=== PATIENT | female | born 1995 | race Caucasian/White ===

== ENCOUNTER 2020-07-21 13:11 | Outpatient (REF) | payer MEDICAID, SELFPAY | END 2020-07-21 13:12 | disposition home or self-care (01) | LOC: HO.LAB 13:11 | PROVIDERS: Visit Provider Internal Medicine | DX: Z20.822 Contact with and (suspected) exposure to COVID-19 (principal) | CPT/HCPCS: 36415; C9803; U0003; U0005 ==

== ENCOUNTER 2020-12-24 14:18 | Outpatient (REF) | payer MEDICAID, SELFPAY ==
--- NOTE | ~2020-12-24 | US_ITS ---
EXAMINATION: US RETROPERITONEAL LIMITED (RENAL ONLY) CLINICAL INFORMATION: Back pain. Hematuria. COMPARISON: None. TECHNIQUE: Real-time imaging of the kidneys. FINDINGS: RIGHT KIDNEY: 12.0 x 5.8 x 4.9 cm (SAG x AP x TRV). The kidney is normal in size, contour, and echogenicity. Renal cortical thickness is normal. No renal calculi or focal parenchymal lesions. There is mild hydronephrosis with mild dilation of proximal and mid ureter. No obvious echogenic stones seen. LEFT KIDNEY: 12.9 x 5.5 x 4.8 cm (SAG x AP x TRV). The kidney is normal in size, contour, and echogenicity. Renal cortical thickness is normal. No calculi or focal parenchymal lesions. No hydronephrosis. BLADDER: Bilateral ureteral jets are demonstrated. US/US renal BI IMPRESSION: Mild hydronephrosis with dilated proximal and mid right ureter. No echogenic stones seen. Bilateral ureteral jets are seen well. Normal left kidney.
== END 2020-12-24 14:19 | disposition home or self-care (01) ==
LOC: HO.US 14:18
PROVIDERS: PCP Internal Medicine; Visit Provider Emergency Medicine
DX: R10.9 Unspecified abdominal pain (principal)
CPT/HCPCS: 76775

== ENCOUNTER 2021-02-20 10:12 | Outpatient (REF) | payer MEDICAID, SELFPAY | END 2021-02-20 10:13 | disposition home or self-care (01) | LOC: HO.LNP 10:12 | PROVIDERS: PCP Internal Medicine | DX: N39.0 Urinary tract infection, site not specified (principal); R31.9 Hematuria, unspecified; E05.90 Thyrotoxicosis, unspecified without thyrotoxic crisis or storm | CPT/HCPCS: 87086; 99202 ==

== ENCOUNTER 2021-04-14 09:37 | Outpatient (REF) | payer MEDICAID, SELFPAY ==
--- NOTE | ~2021-04-14 | US_ITS ---
EXAMINATION: US RETROPERITONEAL LIMITED (RENAL ONLY) CLINICAL INFORMATION: Hematuria, unspecified. COMPARISON: Renal ultrasound 12/24/2020. TECHNIQUE: Real-time imaging of the kidneys. FINDINGS: RIGHT KIDNEY: 12.3 x 5.4 x 5.1 cm (SAG x AP x TRV). There is again noted to be focal hydronephrosis involving the upper pole as well as the proximal to distal right ureter without definite calculus or mass identified. Question possible duplicated upper collecting system with obstruction of the superior moiety.. The ureteral dilatation has increased significantly since previous study. Renal cortical thickness is normal. No renal calculi or focal parenchymal lesions. LEFT KIDNEY: 12.0 x 5.3 x 5.5 cm (SAG x AP x TRV). The kidney is normal in size, contour, and echogenicity. Renal cortical thickness is normal. No calculi or focal parenchymal lesions. No hydronephrosis. US/US renal BI IMPRESSION: Increase in ureteral dilatation with the proximal and mid right ureter and more prominent right renal upper pole prominence with bilateral ureteral jets being identified. Question duplicated right upper collecting system with obstruction of upper pole moiety.
== END 2021-04-14 09:38 | disposition home or self-care (01) ==
LOC: HO.US 09:37
PROVIDERS: PCP Nurse Practitioner
DX: R31.9 Hematuria, unspecified (principal)
CPT/HCPCS: 76775

== ENCOUNTER → 2021-05-22 10:49 | Outpatient (BNVA) | payer MEDICAID, SELFPAY | PROVIDERS: PCP Nurse Practitioner | DX: R31.9 Hematuria, unspecified (principal) | CPT/HCPCS: 99212 ==

== ENCOUNTER 2021-06-11 10:23 | Outpatient (REF) | payer MEDICAID, SELFPAY ==
--- NOTE | ~2021-06-11 | CT_ITS ---
EXAMINATION: CT ABDOMEN AND PELVIS WITHOUT AND WITH CONTRAST CLINICAL INFORMATION: Gross hematuria COMPARISON: None. TECHNIQUE: Noncontrast CT of the abdomen and pelvis is performed followed by split bolus contrast-enhanced images using 85 mL Omnipaque 350 contrast.? Postcontrast imaging is performed during the combined nephrogram and excretion phase. Sagittal and coronal reformatted images were obtained on the technologist's workstation for both the precontrast and postcontrast phases. This CT examination was performed using dose optimization techniques as appropriate, variously including the following: *Automated exposure control *Adjustment of mA and/or kV according to patient size (this includes techniques or standardized protocols for targeted exams where dose is matched to indication/reason for exam; i.e. extremities or head) *Use of iterative reconstruction technique DLP: 1390 mGy-cm FINDINGS: LUNG BASES: The visualized lung bases are unremarkable. ABDOMINAL AND PELVIC WALL: Unremarkable. LIVER AND BILIARY TREE: Hypoattenuating hepatic parenchyma suggestive of hepatic steatosis. GALLBLADDER: Unremarkable PANCREAS: Unremarkable SPLEEN: Unremarkable ADRENAL GLANDS: Unremarkable. KIDNEYS AND URETERS: No nephroureterolithiasis. 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 The right kidney is remarkable for a duplicated renal collecting system. The superior pole demonstrates severe hydronephrosis with chronic renal cortical thinning with the ureter dilated to the level of the pelvis where the ureter appears to insert ectopically, favored to be the posterior aspect of the urethra, however closely approximates the anterior vaginal wall. The right lower pole renal collecting system demonstrates mild hydronephrosis with decompression of the ureter distal to the ureteropelvic junction with a standard insertion at the ureterovesicular junction. There is minimal contrast seen excreted into the right superior pole renal collecting system. UPPER GASTROINTESTINAL TRACT: The stomach and duodenum are unremarkable. VASCULAR: Unremarkable. LYMPH NODES: No lymphadenopathy. BLADDER: Unremarkable PELVIC VISCERA: Unremarkable LOWER GASTROINTESTINAL TRACT: The small and large bowel are unremarkable. Normal appendix. 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 The right kidney is remarkable for a duplicated renal collecting system. The superior pole demonstrates severe hydronephrosis with chronic renal cortical thinning with the ureter dilated to the level of the pelvis where the ureter appears to insert ectopically, favored to be the posterior aspect of the urethra, however closely approximates the anterior vaginal wall, and correlation with clinical symptoms is recommended. There is minimal contrast seen excreted into the right superior pole renal collecting system, which may be related to decreased function. The right lower pole renal collecting system demonstrates mild hydronephrosis with decompression of the ureter distal to the ureteropelvic junction which may reflect a degree of UPJ stenosis with a standard insertion at the ureterovesicular junction. Hepatic steatosis.
[2021-06-11] MEDS: iohexoL 350 MG/ML 100 ML INFUS..BTL IV (12:51)
== END 2021-06-11 10:24 | disposition home or self-care (01) ==
LOC: HO.CT 10:23
DX: N13.30 Unspecified hydronephrosis (principal)
CPT/HCPCS: 74178; Q9967

== ENCOUNTER → 2021-08-17 11:22 | Outpatient (BNVA) | payer MEDICAID, SELFPAY | PROVIDERS: PCP Nurse Practitioner ==

== ENCOUNTER 2021-09-21 11:39 | Day surgery (SDC) | payer MEDICAID, SELFPAY ==
[2021-09-15 12:09] VITALS: BMI 34.9
--- NOTE | 2021-09-18 12:57 | P.CONAN_ITS ---
Documented by User: Natalie Dykes NP 09/18/21 12:58 HPI - Anesthesia Eval Consult details Narrative: 26yo F for Bilateral Cystoscopy and retrogrades and possible right stent PMFSH Active Problems Active Problems: All Active Problems (Updated 09/15/21 @ 11:33 by Terri Rowell RN) Hematuria of unknown etiology (Acute) UTI (urinary tract infection) (Acute) Past Medical History Medical History (Updated 09/15/21 @ 11:33 by Terri Rowell RN) Anemia Anxiety and depression Asthma Chronic back pain Hematuria of unknown etiology Hyperthyroidism Migraines UTI (urinary tract infection) Surgical History Surgical History (Updated 09/15/21 @ 12:07 by Terri Rowell RN) History of kidney surgery Social History Social History Household Members Other:: Mother Are you a primary director of primary care to a significant other at home: No Do you presently have visiting nurse or other home services: No Alcohol intake: never Patient Tobacco Use Status: Never used Tobacco Are you DNR?: No Advance Directives: No Advance Directives Information Provided: Yes Advance Directives on File: No Recently lost weight without trying: No Eating poorly because of decreased appetite: No Nutrition Risks: No Nutritional Risk Patient : No FDLMP: last month Meds Allergies Allergy/AdvReac Type Severity Reaction Status Date / Time No Known Allergies Allergy Verified 08/17/21 11:23 Home Medications Medication Instructions Recorded Confirmed Last Taken Type acetaminophen 650 mg 650 mg PO Q8H PRN 02/20/21 09/15/21 Unknown History tablet,extended release (Mapap Arthritis Pain) albuterol sulfate 2.5 mg INHALATION Q6H PRN 02/20/21 09/15/21 Unknown History duloxetine 60 mg capsule,delayed 60 mg PO DAILY 02/20/21 09/15/21 Unknown History release ferrous sulfate 325 mg (65 mg 325 mg PO Q OTHER DAY 02/20/21 09/15/21 Unknown History iron) tablet (FeroSul) fluticasone propionate 110 2 puff PO BID 02/20/21 09/15/21 Unknown History mcg/actuation HFA aerosol inhaler (Flovent HFA) naproxen 500 mg tablet 500 mg PO BID PRN 02/20/21 09/15/21 Unknown History sumatriptan succinate 25 mg tablet 25 mg PO 02/20/21 Unknown History albuterol sulfate 90 mcg/actuation 2 puff PO QID 05/22/21 09/15/21 Unknown History aerosol inhaler (ProAir HFA) vits no.130-ferrous fum 1 tab PO DAILY 05/22/21 09/15/21 Unknown History 27 mg iron-folic acid 800 mcg tablet ( Vitamin) zolmitriptan 2.5 mg tablet 2.5 mg PO PER PKG DIR PRN 05/22/21 09/15/21 Unknown History amitriptyline 25 mg tablet 25 mg PO BEDTIME 08/17/21 09/15/21 Unknown History levothyroxine 88 mcg tablet 88 mcg PO DAILY 08/17/21 09/15/21 Unknown History Exam Exam Date and Time: September 18, 2021 1257 Height,Weight and Vital Signs: Height 5 ft 1 in Weight 83.915 kg Assessment and Plan Assessment Anesthesia Assessment: Chart Reviewed Documented by User: Darling Muse MD 09/21/21 14:13 [facility] Past Medical History Medical History (Updated 09/15/21 @ 11:33 by Terri Rowell RN) Anemia Anxiety and depression Asthma Chronic back pain Hematuria of unknown etiology Hyperthyroidism Migraines UTI (urinary tract infection) Family History Family history of problems with anesthesia: No Surgical History Surgical History (Updated 09/15/21 @ 12:07 by Terri Rowell RN) History of kidney surgery History of Problems with Anesthesia: No Social History Social History Household Members Other:: Mother Are you a primary director of primary care to a significant other at home: No Do you presently have visiting nurse or other home services: No Alcohol intake: never Patient Tobacco Use Status: Never used Tobacco Are you DNR?: No Advance Directives: No Advance Directives Information Provided: Yes Advance Directives on File: No Recently lost weight without trying: No Eating poorly because of decreased appetite: No Nutrition Risks: No Nutritional Risk Patient : No FDLMP: last month Meds Allergies Allergy/AdvReac Type Severity Reaction Status Date / Time No Known Allergies Allergy Verified 08/17/21 11:23 Home Medications Medication Instructions Recorded Confirmed Last Taken Type acetaminophen 650 mg 650 mg PO Q8H PRN 02/20/21 09/15/21 Unknown History tablet,extended release (Mapap Arthritis Pain) albuterol sulfate 2.5 mg INHALATION Q6H PRN 02/20/21 09/15/21 Unknown History duloxetine 60 mg capsule,delayed 60 mg PO DAILY 02/20/21 09/15/21 Unknown Hist ory release ferrous sulfate 325 mg (65 mg 325 mg PO Q OTHER DAY 02/20/21 09/15/21 Unknown History iron) tablet (FeroSul) fluticasone propionate 110 2 puff PO BID 02/20/21 09/15/21 Unknown History mcg/actuation HFA aerosol inhaler (Flovent HFA) naproxen 500 mg tablet 500 mg PO BID PRN 02/20/21 09/15/21 Unknown History sumatriptan succinate 25 mg tablet 25 mg PO 02/20/21 Unknown History albuterol sulfate 90 mcg/actuation 2 puff PO QID 05/22/21 09/15/21 Unknown History aerosol inhaler (ProAir HFA) vits no.130-ferrous fum 1 tab PO DAILY 05/22/21 09/15/21 Unknown History 27 mg iron-folic acid 800 mcg tablet ( Vitamin) zolmitriptan 2.5 mg tablet 2.5 mg PO PER PKG DIR PRN 05/22/21 09/15/21 Unknown History amitriptyline 25 mg tablet 25 mg PO BEDTIME 08/17/21 09/15/21 Unknown History levothyroxine 88 mcg tablet 88 mcg PO DAILY 08/17/21 09/15/21 Unknown History Exam Airway Mallampati Class: III TM Dist: >3cm Neck ROM: Full Assessment and Plan Assessment Anesthesia Assessment: Anesthesia Plan Discussed Final Anesthetic Review Family History of Problems with Anesthesia: No History of Problems with Anesthesia: No NPO: Yes ASA Class: II Final Preanesthetic Review: No Changes in Pt Med Stat, Meds/Allgs Chart Reviewed, Consent Obtained/Reviewed and Anes Risks/Benef Reviewed Patient Risk: Intermediate Procedure Risk: Intermediate Anesthetic Plan Anesthetic Plan: GA Disposition: Standard PACU
--- NOTE | ~2021-09-21 | FL_ITS ---
EXAMINATION: XR FLUOROSCOPY WITH IMAGES CLINICAL INFORMATION: Urinary tract calculi. COMPARISON: CT urography without and with contrast 06/11/2021 TECHNIQUE: Fluoroscopy performed by Dr. Fei Benavidez. Fluoroscopy time: 17 seconds. Cumulative dose: 6.03 mGy Images: 4 FINDINGS: There is contrast in an otherwise unremarkable distal right ureter. There is a guidewire in the distal left ureter. FL/FL guidance in OR IMPRESSION: Fluoroscopy for urologic procedures.
[2021-09-21 13:54] LABS: UPreg QC Valid YES; Urine Pregnancy NEGATIVE (NEGATIVE)
[2021-09-21 13:56] VITALS: BP 124/76; PULSE 101; RESP 16; TEMP 36.7; O2SAT 98
[2021-09-21] MEDS: Lactated Ringers 1,000 ML 100 ML IVCONT (14:14)
--- NOTE | 2021-09-21 15:05 | HO.ANESPROP2 ---
[facility] Active Problems Active Problems: All Active Problems (Updated 09/15/21 @ 11:33 by Terri Rowell RN) Hematuria of unknown etiology (Acute) UTI (urinary tract infection) (Acute) Past Medical History Medical History (Updated 09/15/21 @ 11:33 by Terri Rowell RN) Anemia Anxiety and depression Asthma Chronic back pain Hematuria of unknown etiology Hyperthyroidism Migraines UTI (urinary tract infection) Family History Family history of problems with anesthesia: No Surgical History Surgical History (Updated 09/15/21 @ 12:07 by Terri Rowell RN) History of kidney surgery History of Problems with Anesthesia: No Social History Social History Household Members Other:: Mother Are you a primary special needs caregiver to a significant other at home: No Do you presently have visiting nurse or other home services: No Alcohol intake: never Patient Tobacco Use Status: Never used Tobacco Are you DNR?: No Advance Directives: No Advance Directives Information Provided: Yes Advance Directives on File: No Recently lost weight without trying: No Eating poorly because of decreased appetite: No Nutrition Risks: No Nutritional Risk Patient : No FDLMP: last month Meds Allergies Allergy/AdvReac Type Severity Reaction Status Date / Time No Known Allergies Allergy Verified 08/17/21 11:23 Active Medications: Current Medications Albuterol Sulfate (Albuterol Sulfate (0.083%) 2.5 Mg/3 Ml Vial.Neb) 2.5 mg INHALE ONCE PRN PRN Reason: Shortness of Breath/Wheezing Fentanyl (Fentanyl Citrate/Pf 100 Mcg/2 Ml Vial) 50 mcg IVPUSH Q5M PRN; Protocol PRN Reason: Pain, Severe (Pain Scale 7-10) Lactated Ringer's (Lr) 1,000 mls @ 100 mls/hr IVCONT .Q10H HARDY Last Admin: 09/21/21 14:14 Dose: 100 mls/hr Documented by: Ondansetron HCl (Ondansetron Hcl 4 Mg/2 Ml Vial) 4 mg IVPUSH ONCE PRN PRN Reason: Nausea and Vomiting Oxycodone HCl (Oxycodone Hcl Immed Release 5 Mg Tablet) 5 mg PO ONCE PRN PRN Reason: Pain, Severe (Pain Scale 7-10) Home Medications Medication Instructions Recorded Confirmed Last Taken Type acetaminophen 650 mg 650 mg PO Q8H PRN 02/20/21 09/15/21 Unknown History tablet,extended release (Mapap Arthritis Pain) albuterol sulfate 2.5 mg INHALATION Q6H PRN 02/20/21 09/15/21 Unknown History duloxetine 60 mg capsule,delayed 60 mg PO DAILY 02/20/21 09/15/21 Unknown History release ferrous sulfate 325 mg (65 mg 325 mg PO Q OTHER DAY 02/20/21 09/15/21 Unknown History iron) tablet (FeroSul) fluticasone propionate 110 2 puff PO BID 02/20/21 09/15/21 Unknown History mcg/actuation HFA aerosol inhaler (Flovent HFA) naproxen 500 mg tablet 500 mg PO BID PRN 02/20/21 09/15/21 Unknown History sumatriptan succinate 25 mg tablet 25 mg PO 02/20/21 Unknown History albuterol sulfate 90 mcg/actuation 2 puff PO QID 05/22/21 09/15/21 Unknown History aerosol inhaler (ProAir HFA) vits no.130-ferrous fum 1 tab PO DAILY 05/22/21 09/15/21 Unknown History 27 mg iron-folic acid 800 mcg tablet ( Vitamin) zolmitriptan 2.5 mg tablet 2.5 mg PO PER PKG DIR PRN 05/22/21 09/15/21 Unknown History amitriptyline 25 mg tablet 25 mg PO BEDTIME 08/17/21 09/15/21 Unknown History levothyroxine 88 mcg tablet 88 mcg PO DAILY 08/17/21 09/15/21 Unknown History Exam Exam Date and Time: September 21, 2021 1505 Height,Weight and Vital Signs: Height 5 ft 1 in Weight 83.915 kg Last Vital Signs Temp 98.0 F 09/21/21 13:56 Pulse 101 H 09/21/21 13:56 Resp 16 09/21/21 13:56 BP 124/76 09/21/21 13:56 Pulse Ox 98 09/21/21 13:56 Pertinent Lab Results Pertinent Lab Results: Laboratory Tests 09/21/21 13:37 Urine Test NEGATIVE Airway Mallampati Class: II TM Dist: >3cm Neck ROM: Full Denture: Upper Partial: Lower Assessment and Plan Assessment Anesthesia Assessment: Anesthesia Plan Discussed and Chart Reviewed Final Anesthetic Review Family History of Problems with Anesthesia: No History of Problems with Anesthesia: No NPO: Yes ASA Class: II Final Preanesthetic Review: No Changes in Pt Med Stat, Meds/Allgs Chart Reviewed, Consent Obtained/Reviewed and Anes Risks/Benef Reviewed Patient Risk: Low Procedure Risk: Intermediate Anesthetic Plan Anesthetic Plan: GA Disposition: Standard PACU
[2021-09-21] MEDS: levoFLOXacin 500 MG TABLET PO (15:20)
--- NOTE | 2021-09-21 15:21 | MHC.SHP ---
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 No changes have occurred unless specified.
--- NOTE | 2021-09-21 16:31 | W.PM.OPN ---
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 Anesthesia was administered per protocol. patient was placed in modified dorsal lithotomy position and prepped and draped in sterile fashion. Safety pause time-out. Antibiotics being given. Cystoscopy was performed. There appeared to be averaged anatomy within the bladder. There was an under formed trigone distally and a more prominent ridge running across the middle of the bladder more proximally on the bladder wall. The ureter orifice was social. There was ureteric orifice seen on the under developed trigone and this was cannulated and retrograde examination performed. This was the lower pole moiety on the right side which was fully developed in had no hydroureteronephrosis. There were 2 other ureter orifice on the more proximal portion of the right bladder sidewall. These were extremely had cannulated. Eventually using an angled Glidewire and running from left to right rather than right to left well to cannulate the orifice and it did show that this was a cross-trigonal structure which appeared to be a common sheath and had 2 separate openings for both ureters from the left upper and lower pole renal moieties. We were unable to find the right moiety numb more distal portion. To tolerated procedure well was extubated in operating room transferred in stable condition Pathology: none Drains: none
[2021-09-21 16:37] VITALS: BP 103/61; PULSE 84; RESP 14; TEMP 36.2; O2SAT 98
[2021-09-21 16:42] VITALS: BP 111/71; PULSE 74; RESP 16; O2SAT 100
[2021-09-21 16:47] VITALS: PULSE 81; RESP 16; O2SAT 97
[2021-09-21 16:52] VITALS: BP 119/75; PULSE 88; RESP 18; TEMP 36.2; O2SAT 96
[2021-09-21 17:07] VITALS: BP 101/58; PULSE 79; RESP 18; O2SAT 96
--- NOTE | 2021-09-21 17:24 | PC.NURSE ---
DR. HOLMAN AT BEDSIDE TO MEET WITH PATIENT REVIEW PROCEDURE FINDINGS. OOB AMBULATED TO BATHROOM TO VOID. YELLOW URINE.
== END 2021-09-21 17:25 | disposition home or self-care (01) ==
PROVIDERS: Nurse Practitioner; PCP Nurse Practitioner; Visit Provider Urology
PROC: 0TJB8ZZ Inspection of Bladder, Via Natural or Artificial Opening Endoscopic (ICD-10-PCS; CPT 52000; principal; 2021-09-21 13:20)
DX: N13.0 Hydronephrosis with ureteropelvic junction obstruction (principal); R31.29 Other microscopic hematuria; Q62.5 Duplication of ureter; E05.90 Thyrotoxicosis, unspecified without thyrotoxic crisis or storm; J45.909 Unspecified asthma, uncomplicated; Z79.899 Other long term (current) drug therapy
CPT/HCPCS: 52005; 81025; C1769; J1100; J2250; J2405; J3010; Q9967

== ENCOUNTER → 2021-10-08 10:53 | Outpatient (BNVA) | payer MEDICAID, SELFPAY | PROVIDERS: PCP Nurse Practitioner; Visit Provider Urology | DX: Z13.89 Encounter for screening for other disorder (principal) ==

== ENCOUNTER 2022-01-23 10:56 | Emergency (ER) | payer MEDICAID, SELFPAY ==
--- NOTE | ~2022-01-23 | CT_ITS ---
EXAMINATION: CT ABDOMEN AND PELVIS WITHOUT CONTRAST CLINICAL INFORMATION: Right lower quadrant pain COMPARISON: CT urogram 06/11/2021 TECHNIQUE: Multidetector volumetric imaging was performed from the superior aspect of the liver through the pubic symphysis. Sagittal and coronal reformatted images were obtained on the technologist's workstation. This CT examination was performed using dose optimization techniques as appropriate, variously including the following: *Automated exposure control *Adjustment of mA and/or kV according to patient size (this includes techniques or standardized protocols for targeted exams where dose is matched to indication/reason for exam; i.e. extremities or head) *Use of iterative reconstruction technique DLP: 706 mGy-cm FINDINGS: LUNG BASES: Unremarkable. ABDOMINAL AND PELVIC WALL: Unremarkable. LIVER AND BILIARY TREE: Heterogeneous, hypoattenuating hepatic parenchyma suggesting heterogeneous steatosis. GALLBLADDER: Unremarkable. PANCREAS: Unremarkable. SPLEEN: Unremarkable. ADRENAL GLANDS: Unremarkable. KIDNEYS AND URETERS: Duplicated right renal collecting system with atrophy of the upper pole moiety with severe hydroureteronephrosis and mild hydroureteronephrosis involving the lower pole moiety, with the ureters joining in the pelvis just proximal to the bladder. Left renal collecting system is also partially duplicated with the ureter is favored to be joining in the pelvis, although difficult to definitively identified. No obstructing stone seen. GASTROINTESTINAL TRACT: Large and small bowel are unremarkable. Normal appendix. VASCULAR: Unremarkable. LYMPH NODES/PERITONEUM: No lymphadenopathy. FREE FLUID: None. BLADDER: There is suspected soft tissue within the lumen of the bladder at the right ureterovesicular junction, 3:88 measuring approximately 1.4 cm. PELVIC VISCERA: Unremarkable. OSSEOUS STRUCTURES: Unremarkable. CT/CT abdomen pelvis wo con IMPRESSION: Bilateral partially duplicated renal collecting systems. The right upper pole moiety demonstrates severe hydroureteronephrosis and atrophy and the right lower pole moiety demonstrates mild hydroureteronephrosis. There is suspected soft tissue within the lumen of the bladder in the region of the right ureterovesicular junction measuring 1.4 cm, which could potentially reflect the etiology of the obstruction and urologic evaluation and management is recommended to exclude a bladder mass. No obstructing stone is seen. Heterogeneous, hypoattenuating hepatic parenchyma suggesting heterogeneous steatosis.
[2022-01-23 10:59] VITALS: BP 119/76; PULSE 103; RESP 18; TEMP 38.1; O2SAT 99; BMI 32.9
[2022-01-23] MEDS: Acetaminophen 325 MG TABLET 650 MG PO (11:03)
[2022-01-23 12:10] LABS: Appearance Urine CLOUDY; Glucose Urine UA NEG (NEG); Leukocyte Esterase Urine 3+ (NEG); Nitrite Urine POS (NEG); UACC Culture Trigger YES; Urine Blood 3+ (NEG); Urine Ketones NEG (NEG); Urine Protein 3+ MG/DL (NEG-TRACE)
[2022-01-23 12:23] LABS: Color Urine AMBER
[2022-01-23 12:31] LABS: Bacteria Urine 2+ /LPF; RBC Urine TNTC /HPF (0); Squamous Epithelial Cell Urine 1+ /LPF; WBC Urine TNTC /HPF (0-4)
[2022-01-23 13:14] VITALS: BP 110/70; PULSE 82; RESP 16; TEMP 37.2; O2SAT 99
--- NOTE | 2022-01-23 13:24 | ED.ABDPAIN ---
HPI - Abdominal Pain General Chief Complaint: Back Pain/Injury Stated Complaint: R side abd pain rad. to lower abd Time Seen by Provider: 01/23/22 12:40 Source: patient and family (Mother) Mode of arrival: ambulatory History of Present Illness HPI narrative: 26-year-old female who states that she began having right lower back/flank pain last night that was sharp in nature and radiated into her groin area and then was associated with decrease in appetite as well as nausea but she denies any vomiting or diarrhea, she also denies any urinary symptoms and states that she had chills and then was noted to have fever on arrival here to the ER. As per the mother this patient has undergone a prophylactic Bactrim as a child until she was 6 years old secondary to reflux. Related Data Home Medications Medication Instructions Recorded Confirmed acetaminophen 650 mg 650 mg PO Q8H PRN Pain 02/20/21 09/15/21 tablet,extended release (Mapap Arthritis Pain) albuterol sulfate 2.5 mg/3 mL 2.5 mg inhalation Q6H PRN asthma 02/20/21 09/15/21 (0.083 %) solution for nebulization duloxetine 60 mg capsule,delayed 60 mg PO DAILY chronic pain 02/20/21 09/15/21 release ferrous sulfate 325 mg (65 mg 325 mg PO Q OTHER DAY anemia 02/20/21 09/15/21 iron) tablet (FeroSul) fluticasone propionate 110 2 puff PO BID asthma 02/20/21 09/15/21 mcg/actuation HFA aerosol inhaler (Flovent HFA) naproxen 500 mg tablet 500 mg PO BID PRN pain 02/20/21 09/15/21 sumatriptan succinate 25 mg tablet 25 mg PO 02/20/21 albuterol sulfate 90 mcg/actuation 2 puff PO QID 05/22/21 09/15/21 aerosol inhaler (ProAir HFA) vits no.130-ferrous fum 1 tab PO DAILY 05/22/21 09/15/21 27 mg iron-folic acid 800 mcg tablet ( Vitamin) zolmitriptan 2.5 mg tablet 2.5 mg PO PER PKG DIR PRN Migraine 05/22/21 09/15/21 Headache amitriptyline 25 mg tablet 25 mg PO BEDTIME 08/17/21 09/15/21 levothyroxine 88 mcg tablet 88 mcg PO DAILY 08/17/21 09/15/21 Previous Rx's Medication Instructions Recorded cefdinir 300 mg capsule 300 mg PO Q12H 7 days #14 caps 01/23/22 ketorolac 10 mg tablet 10 mg PO Q6H PRN pain 5 days #20 01/23/22 tabs Allergies Allergy/AdvReac Type Severity Reaction Status Date / Time No Known Allergies Allergy Verified 10/08/21 10:54 Review of Systems Review of Systems Pertinent positives and negatives as stated in HPI 10 point review of systems is otherwise negative. PMFSH Past Medical History Source: nursing notes reviewed Medical History Anemia Anxiety and depression Asthma Chronic back pain Hematuria of unknown etiology Hyperthyroidism Migraines UTI (urinary tract infection) Surgical History History of kidney surgery Social History Social History Household Members Other:: Mother Are you a primary critical care clinical nurse specialist to a significant other at home: No Do you presently have visiting nurse or other home services: No Alcohol intake: never Patient Tobacco Use Status: Never used Tobacco Use of substances other than those prescribed or required for medical reasons: No Advance Directives: No Advance Directives Information Provided: No Physical Exam ED Vital Signs: Vital Signs - 24 hr 01/23/22 10:59 01/23/22 13:14 01/23/22 13:30 Temperature 100.5 F H 99.0 F 99.0 F Pulse Rate 103 H 82 Respiratory Rate 18 16 Blood Pressure 119/76 110/70 Pulse Oximetry 99 99 Oxygen Delivery Method Room Air Room Air 01/23/22 15:14 01/23/22 15:15 Temperature 98.5 F Pulse Rate 84 Respiratory Rate 16 Blood Pressure 111/77 Pulse Oximetry 100 Oxygen Delivery Method Room Air BMI result Body Mass Index 32.9 VITAL SIGNS: Reviewed. GENERAL: Well developed, well nourished, in no acute distress. HEAD: Normocephalic/atraumatic EYES: PERRLA, EOMI EARS: Ext canals without abnormality OROPHARYNX: no oral lesions noted, posterior pharynx clear LUNGS: Normal breath sounds. No adventitious sounds or accessory muscle use. SpO2<99> CARDIOVASCULAR: Regular rate and rhythm without noted murmurs ABDOMEN: Soft, right lower quadrant discomfort maximal on release of palpation, non-distended with bowel sounds, no CVA tenderness MUSCULOSKELETAL: No tenderness, deformities, or effusions noted on gross inspection. EXTREMITIES: No cyanosis, clubbing or edema. SKIN: Inspection of the skin reveals no rashes NEUROLOGIC: Alert and oriented x 4. Strength and sensation to light touch were grossly intact x 4. Course Course Course Narrative: 26-year-old female with history and clinical presentation suggestive of possible renal colic, appendicitis but on review of urinalysis there is obvious UTI although patient does not have CVA tenderness. Review of all investigations significant for urinary tract infection, will be treated for a pyelonephritis since patient has evidence of a soft tissue mass at the UVJ and has a history of reflux. I did discuss this case with the urologist, Dr. Benavidez, who has seen this patient previously and recommends that patient should get a CT urogram and that it can be done as an outpatient.All results and findings discussed with the patient at bedside. MDM - Abdominal Pain Lab Data Result diagrams: 01/23/22 13:29 01/23/22 13:29 Labs: Lab Results 01/23/22 01/23/22 01/23/22 Range/Units 11:17 13:29 13:29 WBC 16.4 H (4.8-10.8) X10*3/uL RBC 4.61 (4.20-5.50) X10*6/uL Hgb 13.5 (12.0-16.0) g/dl Hct 41.3 (37.0-47.0) % MCV 89.6 (80.0-98.0) fL MCH 29.3 (27.0-33.0) pg MCHC 32.7 (31.0-35.0) g/dl RDW 14.0 (11.0-16.0) % Plt Count 281 (160-400) X10*3/uL MPV 9.5 (9.4-12.3) fL Immature Gran % (Auto) 0.4 (0.0-0.4) % Neut % (Auto) 87.5 H (45-73) % Lymph % (Auto) 5.6 L (20-40) % [place] % (Auto) 6.2 (2-11) % Eos % (Auto) 0.1 (0-4) % Baso % (Auto) 0.2 (0-2) % Lymph # (Auto) 0.9 L (1.2-4.9) X10*3/uL [place] # (Auto) 1.0 (0.1-1.2) X10*3/uL Eos # (Auto) 0.0 (0.0-0.4) X10*3/uL Baso # (Auto) 0.0 (0.0-0.2) X10*3/uL Abs Immat Gran (auto) 0.06 H (0.00-0.03) X10*3/uL Absolute Neuts (auto) 14.3 H (2.0-8.3) x10*3/uL Absolute Nucleated RBC 0.000 (0.0-0.012) X10*3/uL Nucleated RBC % (auto) 0.0 (0.0-0.2) /100WBC Sodium 135 (135-145) mmol/L Potassium 4.3 (3.3-5.1) mmol/L Chloride 101 (96-108) mmol/L Carbon Dioxide 23 (22-29) mmol/L Anion Gap 15 (12-20) BUN 11 (9-16) mg/dL Creatinine 0.71 (0.5-1.4) mg/dL Estim Creat Clear Calc 119.9 Estimated GFR > 60 Random Glucose 100 (60-115) mg/dL Lactic Acid (0.5-2.0) mmol/L Calcium 9.0 (8.4-10.2) mg/dL Total Bilirubin 0.7 (0.0-1.0) mg/dL AST 18 (5-31) U/L ALT 28 (0-31) U/L Alkaline Phosphatase 73 (39-117) U/L Total Protein 7.6 (6.5-8.0) g/dL Albumin 4.4 (3.5-5.0) g/dL Beta HCG, Quant < 2 mIU/mL Urine Color ALBERTO Urine Appearance CLOUDY Urine pH 7.0 (5.0-8.0) Ur Specific [place] 1.020 (1.005-1.025) Urine Protein 3+ H (NEG-TRACE) MG/DL Urine Glucose (UA) NEG (NEG) MG/DL Urine Ketones NEG (NEG) MG/DL Urine Blood 3+ H (NEG) Urine Nitrite POS H (NEG) Ur Leukocyte Esterase 3+ H (NEG) Urine RBC TNTC H (0) /HPF Urine WBC TNTC H (0-4) /HPF Ur Squamous Epith Cells 1+ /LPF Urine Bacteria 2+ /LPF COVID-19 (BRII) (Negative) COVID-19 Clin Com 01/23/22 01/23/22 Range/Units 13:29 13:29 WBC (4.8-10.8) X10*3/uL RBC (4.20-5.50) X10*6/uL Hgb (12.0-16.0) g/dl Hct (37.0-47.0) % MCV (80.0-98.0) fL MCH (27.0-33.0) pg MCHC (31.0-35.0) g/dl RDW (11.0-16.0) % Plt Count (160-400) X10*3/uL MPV (9.4-12.3) fL Immature Gran % (Auto) (0.0-0.4) % Neut % (Auto) (45-73) % Lymph % (Auto) (20-40) % [place] % (Auto) (2-11) % Eos % (Auto) (0-4) % Baso % (Auto) (0-2) % Lymph # (Auto) (1.2-4.9) X10*3/uL [place] # (Auto) (0.1-1.2) X10*3/uL Eos # (Auto) (0.0-0.4) X10*3/uL Baso # (Auto) (0.0-0.2) X10*3/uL Abs Immat Gran (auto) (0.00-0.03) X10*3/uL Absolute Neuts (auto) (2.0-8.3) x10*3/uL Absolute Nucleated RBC (0.0-0.012) X10*3/uL Nucleated RBC % (auto) (0.0-0.2) /100WBC Sodium (135-145) mmol/L Potassium (3.3-5.1) mmol/L Chloride (96-108) mmol/L Carbon Dioxide (22-29) mmol/L Anion Gap (12-20) BUN (9-16) mg/dL Creatinine (0.5-1.4) mg/dL Estim Creat Clear Calc Estimated GFR Random Glucose (60-115) mg/dL Lactic Acid 1.2 (0.5-2.0) mmol/L Calcium (8.4-10.2) mg/dL Total Bilirubin (0.0-1.0) mg/dL AST (5-31) U/L ALT (0-31) U/L Alkaline Phosphatase (39-117) U/L Total Protein (6.5-8.0) g/dL Albumin (3.5-5.0) g/dL Beta HCG, Quant mIU/mL Urine Color Urine Appearance Urine pH (5.0-8.0) Ur Specific [place] (1.005-1.025) Urine Protein (NEG-TRACE) MG/DL Urine Glucose (UA) (NEG) MG/DL Urine Ketones (NEG) MG/DL Urine Blood (NEG) Urine Nitrite (NEG) Ur Leukocyte Esterase (NEG) Urine RBC (0) /HPF Urine WBC (0-4) /HPF Ur Squamous Epith Cells /LPF Urine Bacteria /LPF COVID-19 (BRII) Negative (Negative) COVID-19 Clin Com See Note Discharge Plan Discharge Clinical Impression: Pyelonephritis, Hydroureteronephrosis Patient Disposition: Home, Self-Care Instructions: Kidney Infection (ED), Hydronephrosis (ED) Additional Instructions: 1. Resume all home medications as prescribed. 2. You have been diagnosed with a pyelonephritis, and need to complete the entire course of antibiotics as prescribed. 3. Please follow-up with urology by calling the office on Tuesday, this does not mean that you will have an appointment on Tuesday but please schedule an appointment for re-evaluation. 4. Please follow-up with your primary care provider in the next 1-2 days as well. Return to the ER for worsening symptoms. Prescriptions: New cefdinir 300 mg capsule 300 mg PO Q12H 7 Days Qty: 14 0RF ketorolac 10 mg tablet 10 mg PO Q6H PRN (Reason: pain) 5 Days Qty: 20 0RF Rx Instructions: 1. Patient received Toradol in the emergency room. 2. Please instruct patient to stop all other NSAIDs. No Action naproxen 500 mg tablet 500 mg PO BID PRN (Reason: pain) duloxetine 60 mg capsule,delayed release(DR/EC) 60 mg PO DAILY Flovent HFA 110 mcg/actuation HFA aerosol inhaler 2 puff PO BID ferrous sulfate [FeroSul] 325 mg (65 mg iron) tablet 325 mg PO Q OTHER DAY acetaminophen [Mapap Arthritis Pain] 650 mg tablet extended release 650 mg PO Q8H PRN (Reason: Pain) sumatriptan succinate 25 mg tablet 25 mg PO albuterol sulfate 2.5 mg /3 mL (0.083 %) solution for nebulization 2.5 mg inhalation Q6H PRN (Reason: asthma) zolmitriptan 2.5 mg tablet 2.5 mg PO PER PKG DIR PRN (Reason: Migraine Headache) albuterol sulfate [ProAir HFA] 90 mcg/actuation HFA aerosol inhaler 2 puff PO QID Vitamin 27 mg iron- 800 mcg tablet 1 tab PO DAILY amitriptyline 25 mg tablet 25 mg PO BEDTIME levothyroxine 88 mcg tablet 88 mcg PO DAILY
[2022-01-23 13:30] VITALS: TEMP 37.2
[2022-01-23 13:36] LABS: MANUAL DIFF FLAG NO
[2022-01-23 13:37] LABS: Basophils Percent Auto 0.2 % (0-2); Eosinophils Percent Auto 0.1 % (0-4); Hematocrit 41.3 % (37.0-47.0); Hemoglobin 13.5 g/dl (12.0-16.0); Imm Gran Abs Auto 0.06 X10*3/uL (0.00-0.03); Imm Gran Pct Auto 0.4 % (0.0-0.4); Lymphocytes Absolute Auto 0.9 X10*3/uL (1.2-4.9); Lymphocytes Percent Auto 5.6 % (20-40); Mean Corpuscular HGB Conc 32.7 g/dl (31.0-35.0); Mean Corpuscular Hemoglobin 29.3 pg (27.0-33.0); Mean Corpuscular Volume 89.6 fL (80.0-98.0); Mean Platelet Volume 9.5 fL (9.4-12.3); Monocytes Percent Auto 6.2 % (2-11); Neutrophils Absolute Auto 14.3 x10*3/uL (2.0-8.3); Neutrophils Percent Auto 87.5 % (45-73); Platelet Count 281 X10*3/uL (160-400); Red Blood Count 4.61 X10*6/uL (4.20-5.50); White Blood Count 16.4 X10*3/uL (4.8-10.8)
[2022-01-23 13:46] LABS: Lactic Acid 1.2 mmol/L (0.5-2.0)
[2022-01-23 13:51] LABS: Alanine Aminotransferase 28 U/L (0-31); Albumin Level 4.4 g/dL (3.5-5.0); Alkaline Phosphatase 73 U/L (39-117); Anion Gap 15 (12-20); Aspartate Amino Transferase 18 U/L (5-31); Bilirubin Total 0.7 mg/dL (0.0-1.0); Blood Urea Nitrogen 11 mg/dL (9-16); Carbon Dioxide 23 mmol/L (22-29); Chloride 101 mmol/L (96-108); Creatinine Clr Calc Pharmacy 119.9; Estimated Glomerular Filt Rate > 60; Glucose Random 100 mg/dL (60-115); Potassium 4.3 mmol/L (3.3-5.1); Sodium 135 mmol/L (135-145); Total Protein 7.6 g/dL (6.5-8.0)
[2022-01-23 13:53] LABS: COVID-19 Test Negative (Negative)
[2022-01-23] MEDS: cefTRIAXone sodium 1 GM in 0.9 % Sodium Chloride 50 ML IV (14:15)
[2022-01-23] MEDS: Ketorolac Tromethamine 30 MG/ML VIAL 15 MG IVPUSH (15:11)
[2022-01-23 15:14] VITALS: BP 111/77; PULSE 84; RESP 16; O2SAT 100
[2022-01-23 15:15] VITALS: TEMP 36.9
[2022-01-23 15:44] LABS: HCG Quantitative < 2 mIU/mL
== END 2022-01-23 17:30 | disposition home or self-care (01) ==
PROVIDERS: Emergency Provider Student in an Organized Health Care Education/Training Program; PCP Nurse Practitioner
DX: N12 Tubulo-interstitial nephritis, not specified as acute or chronic (principal); N13.30 Unspecified hydronephrosis; M54.50 Low back pain, unspecified; Z20.822 Contact with and (suspected) exposure to COVID-19
CPT/HCPCS: 36415; 74176; 80053; 81001; 83605; 84702; 85025; 87040; 87086; 87635; 96365; 96375; 99284; 99285; J0696; J1885

== ENCOUNTER 2022-10-12 09:26 | Outpatient (REF) | payer MEDICAID, SELFPAY ==
--- NOTE | ~2022-10-12 | US_ITS ---
EXAMINATION: US RETROPERITONEAL LIMITED (RENAL ONLY) CLINICAL INFORMATION: Duplication of ureter. COMPARISON: Previous CT scans May 2021 and January 2022 TECHNIQUE: Real-time imaging of the kidneys. FINDINGS: RIGHT KIDNEY: 11.0 x 4.4 x 5.2 cm (SAG x AP x TRV). There is a duplicated right renal collecting system. There is upper pole hydronephrosis. Only one ureter is seen by ultrasound. This is dilated down to the bladder. This appears similar to previous CT scan. No renal stone or mass. LEFT KIDNEY: 11.8 x 5.4 x 5.4 cm (SAG x AP x TRV). The kidney is normal in size, contour, and echogenicity. Renal cortical thickness is normal. No calculi or focal parenchymal lesions. No hydronephrosis. US/US renal BI IMPRESSION: Duplicated right renal collecting system. Right upper moiety hydronephrosis. Only one ureter is seen by ultrasound which is dilated down to the bladder similar to previous CT scans. This is similar to previous CT scans. Normal left kidney.
== END 2022-10-12 09:27 | disposition home or self-care (01) ==
LOC: HO.US 09:26
PROVIDERS: PCP Nurse Practitioner; Visit Provider Urology
DX: Q62.5 Duplication of ureter (principal)
CPT/HCPCS: 76775

== ENCOUNTER → 2022-10-19 09:46 | Outpatient (BNVA) | payer MEDICAID, SELFPAY | PROVIDERS: PCP Nurse Practitioner; Visit Provider Urology ==

== ENCOUNTER 2023-01-19 10:49 | Outpatient (REF) | payer MEDICAID, SELFPAY ==
[2023-01-19 11:25] LABS: MANUAL DIFF FLAG NO
[2023-01-19 11:45] LABS: Basophils Absolute Auto 0.1 X10*3/uL (0.0-0.2); Eosinophils Absolute Auto 0.2 X10*3/uL (0.0-0.4); Eosinophils Percent Auto 2.5 % (0-4); Hematocrit 39.2 % (37.0-47.0); Hemoglobin 12.6 g/dl (12.0-16.0); Imm Gran Abs Auto 0.03 X10*3/uL (0.00-0.03); Imm Gran Pct Auto 0.5 % (0.0-0.4); Lymphocytes Absolute Auto 1.8 X10*3/uL (1.2-4.9); Lymphocytes Percent Auto 30.2 % (20-40); Mean Corpuscular HGB Conc 32.1 g/dl (31.0-35.0); Mean Corpuscular Hemoglobin 28.4 pg (27.0-33.0); Mean Corpuscular Volume 88.3 fL (80.0-98.0); Mean Platelet Volume 10.4 fL (9.4-12.3); Monocytes Absolute Auto 0.4 X10*3/uL (0.1-1.2); Monocytes Percent Auto 7.4 % (2-11); Neutrophils Absolute Auto 3.5 x10*3/uL (2.0-8.3); Neutrophils Percent Auto 58.4 % (45-73); Platelet Count 328 X10*3/uL (160-400); Red Blood Count 4.44 X10*6/uL (4.20-5.50); Red Cell Distribution Width 13.6 % (11.0-16.0)
[2023-01-19 12:38] LABS: Ferritin 30 ng/mL (10-122); Iron 39 mcg/dL (30-160); Percent Iron Saturation 13 % (15-50); TSH reflex Free T4 1.53 uIU/mL (0.32-4.0); Total Iron Binding Capacity 298 mcg/dL (228-428); Unsaturated Iron Binding 259 ug/dL
== END 2023-01-19 10:50 | disposition home or self-care (01) ==
LOC: HO.HHCL 10:49
PROVIDERS: Visit Provider Registered Nurse
DX: E03.8 Other specified hypothyroidism (principal); D64.9 Anemia, unspecified
CPT/HCPCS: 36415; 82728; 83540; 84443; 85025

== ENCOUNTER 2023-07-07 09:24 | Outpatient (REF) | payer MEDICAID, SELFPAY ==
[2023-07-07 11:42] LABS: MANUAL DIFF FLAG NO
[2023-07-07 11:46] LABS: Basophils Absolute Auto 0.1 X10*3/uL (0.0-0.2); Eosinophils Absolute Auto 0.2 X10*3/uL (0.0-0.4); Eosinophils Percent Auto 3.6 % (0-4); Hematocrit 39.6 % (37.0-47.0); Hemoglobin 12.6 g/dl (12.0-16.0); Imm Gran Abs Auto 0.02 X10*3/uL (0.00-0.03); Imm Gran Pct Auto 0.3 % (0.0-0.4); Lymphocytes Absolute Auto 1.6 X10*3/uL (1.2-4.9); Lymphocytes Percent Auto 25.6 % (20-40); Mean Corpuscular HGB Conc 31.8 g/dl (31.0-35.0); Mean Corpuscular Hemoglobin 28.2 pg (27.0-33.0); Mean Corpuscular Volume 88.6 fL (80.0-98.0); Mean Platelet Volume 10.4 fL (9.4-12.3); Monocytes Absolute Auto 0.4 X10*3/uL (0.1-1.2); Monocytes Percent Auto 6.4 % (2-11); Neutrophils Absolute Auto 3.9 x10*3/uL (2.0-8.3); Neutrophils Percent Auto 63.1 % (45-73); Platelet Count 294 X10*3/uL (160-400); Red Blood Count 4.47 X10*6/uL (4.20-5.50); Red Cell Distribution Width 13.9 % (11.0-16.0); White Blood Count 6.1 X10*3/uL (4.8-10.8)
[2023-07-07 11:54] LABS: Iron 61 mcg/dL (30-160); Percent Iron Saturation 22 % (15-50); Total Iron Binding Capacity 274 mcg/dL (228-428); Unsaturated Iron Binding 213 ug/dL
[2023-07-07 12:11] LABS: Ferritin 44 ng/mL (10-122); TSH reflex Free T4 2.74 uIU/mL (0.32-4.0)
== END 2023-07-07 09:25 | disposition home or self-care (01) ==
LOC: HO.HHCL 09:24
PROVIDERS: Visit Provider Registered Nurse
DX: D50.9 Iron deficiency anemia, unspecified (principal); E03.8 Other specified hypothyroidism
CPT/HCPCS: 36415; 82728; 83540; 84443; 85025

== ENCOUNTER 2023-11-22 08:52 | Emergency (ER) | payer MEDICAID, SELFPAY | END 2023-11-22 09:56 | disposition left against medical advice (07) | PROVIDERS: Emergency Provider Emergency Medicine; PCP Nurse Practitioner | DX: Z53.21 Procedure and treatment not carried out due to patient leaving prior to being seen by health care provider (principal); N92.0 Excessive and frequent menstruation with regular cycle ==

== ENCOUNTER 2023-11-22 10:45 | Outpatient (REF) | payer MEDICAID, SELFPAY ==
[2023-11-22 11:16] LABS: MANUAL DIFF FLAG NO
[2023-11-22 11:22] LABS: Basophils Absolute Auto 0.1 X10*3/uL (0.0-0.2); Basophils Percent Auto 0.8 % (0-2); Eosinophils Absolute Auto 0.2 X10*3/uL (0.0-0.4); Eosinophils Percent Auto 2.1 % (0-4); Hematocrit 37.4 % (37.0-47.0); Hemoglobin 12.2 g/dl (12.0-16.0); Imm Gran Abs Auto 0.02 X10*3/uL (0.00-0.03); Imm Gran Pct Auto 0.3 % (0.0-0.4); Lymphocytes Absolute Auto 1.7 X10*3/uL (1.2-4.9); Lymphocytes Percent Auto 23.2 % (20-40); Mean Corpuscular HGB Conc 32.6 g/dl (31.0-35.0); Mean Corpuscular Volume 88.8 fL (80.0-98.0); Mean Platelet Volume 9.7 fL (9.4-12.3); Monocytes Absolute Auto 0.5 X10*3/uL (0.1-1.2); Monocytes Percent Auto 6.9 % (2-11); Neutrophils Absolute Auto 4.8 x10*3/uL (2.0-8.3); Neutrophils Percent Auto 66.7 % (45-73); Platelet Count 301 X10*3/uL (160-400); Red Blood Count 4.21 X10*6/uL (4.20-5.50); Red Cell Distribution Width 13.6 % (11.0-16.0); White Blood Count 7.2 X10*3/uL (4.8-10.8)
== END 2023-11-22 10:46 | disposition home or self-care (01) ==
LOC: HO.HHCL 10:45
PROVIDERS: Visit Provider Nurse Practitioner Family
DX: N93.8 Other specified abnormal uterine and vaginal bleeding (principal)
CPT/HCPCS: 36415; 85025

== ENCOUNTER 2023-11-24 | Outpatient (REF) | payer MEDICAID, SELFPAY ==
[2023-11-30 12:07] LABS: C. trachomatis RNA TMA DETECTED (NOT DETECTED); N. gonorrhoeae RNA TMA NOT DETECTED (NOT DETECTED); Trichomonas (NAAT) NOT DETECTED (NOT DETECTED)
== END 2023-11-24 00:01 | disposition home or self-care (01) ==
LOC: HO.LNP
PROVIDERS: Visit Provider Advanced Practice Midwife
DX: Z12.4 Encounter for screening for malignant neoplasm of cervix (principal); Z11.3 Encounter for screening for infections with a predominantly sexual mode of transmission
CPT/HCPCS: 87491; 87591; 87661; 88142

== ENCOUNTER 2023-11-24 13:29 | Outpatient (REF) | payer MEDICAID, SELFPAY ==
[2023-11-24 16:27] LABS: TSH reflex Free T4 3.57 uIU/mL (0.32-4.0)
== END 2023-11-24 13:30 | disposition home or self-care (01) ==
LOC: HO.HHCL 13:29
PROVIDERS: Visit Provider Advanced Practice Midwife
DX: N93.9 Abnormal uterine and vaginal bleeding, unspecified (principal)
CPT/HCPCS: 36415; 84443

== ENCOUNTER 2024-01-26 17:42 | Outpatient (REF) | payer MEDICAID, SELFPAY ==
[2024-01-27 05:08] LABS: CT PCR NOT DETECTED (Not Detect.); NG PCR NOT DETECTED (Not Detect.)
== END 2024-01-26 17:43 | disposition home or self-care (01) ==
LOC: HO.HHCLNP 17:42
PROVIDERS: Visit Provider Advanced Practice Midwife
DX: Z11.3 Encounter for screening for infections with a predominantly sexual mode of transmission (principal); R87.615 Unsatisfactory cytologic smear of cervix
CPT/HCPCS: 36415; 87491; 87591; 88175

== ENCOUNTER 2024-02-08 08:55 | Outpatient (REF) | payer MEDICAID, SELFPAY ==
[2024-02-08 12:06] LABS: HIV AB/AG Nonreactive (Nonreactive); HIV Num 1 0.05 S/CO (0.00-0.99); ~HepC Num1 0.28 S/CO (0.00-0.79); ~Hepatitis C Antibody Nonreactive (Nonreactive)
[2024-02-09 04:21] LABS: Syphilis Screen Nonreactive (Nonreactive)
== END 2024-02-08 08:56 | disposition home or self-care (01) ==
LOC: HO.HHCL 08:55
PROVIDERS: Visit Provider Advanced Practice Midwife
DX: Z11.3 Encounter for screening for infections with a predominantly sexual mode of transmission (principal)
CPT/HCPCS: 36415; 86780; 86803; 87389

== ENCOUNTER 2024-03-01 08:49 | Outpatient (REF) | payer MEDICAID, SELFPAY ==
[2024-03-01 11:28] LABS: MANUAL DIFF FLAG NO
[2024-03-01 11:48] LABS: Estimated Average Glucose 114 mg/dL; Hemoglobin A1c % 5.6 % (<6.0)
[2024-03-01 11:51] LABS: Basophils Absolute Auto 0.1 X10*3/uL (0.0-0.2); Basophils Percent Auto 0.7 % (0-2); Eosinophils Absolute Auto 0.1 X10*3/uL (0.0-0.4); Eosinophils Percent Auto 1.9 % (0-4); Hematocrit 37.1 % (37.0-47.0); Hemoglobin 11.7 g/dl (12.0-16.0); Imm Gran Abs Auto 0.03 X10*3/uL (0.00-0.03); Imm Gran Pct Auto 0.4 % (0.0-0.4); Lymphocytes Percent Auto 15.6 % (20-40); Mean Corpuscular HGB Conc 31.5 g/dl (31.0-35.0); Mean Corpuscular Hemoglobin 26.5 pg (27.0-33.0); Mean Corpuscular Volume 83.9 fL (80.0-98.0); Monocytes Absolute Auto 0.5 X10*3/uL (0.1-1.2); Monocytes Percent Auto 7.6 % (2-11); Neutrophils Absolute Auto 4.9 x10*3/uL (2.0-8.3); Neutrophils Percent Auto 73.8 % (45-73); Platelet Count 375 X10*3/uL (160-400); Red Blood Count 4.42 X10*6/uL (4.20-5.50); Red Cell Distribution Width 14.7 % (11.0-16.0); White Blood Count 6.7 X10*3/uL (4.8-10.8)
[2024-03-01 12:13] LABS: Alanine Aminotransferase 31 U/L (0-31); Albumin Level 4.1 g/dL (3.5-5.0); Alkaline Phosphatase 63 U/L (39-117); Anion Gap 11 (12-20); Aspartate Amino Transferase 18 U/L (5-31); Bilirubin Total 0.3 mg/dL (0.0-1.0); Blood Urea Nitrogen 11 mg/dL (9-16); Calcium 9.4 mg/dL (8.4-10.2); Carbon Dioxide 26 mmol/L (22-29); Chloride 104 mmol/L (96-108); Cholesterol 173 mg/dL (<200); Estimated Glomerular Filt Rate > 60; Glucose Random 107 mg/dL (60-115); HDL Cholesterol 43 mg/dL (>40); LDL Cholesterol Calculated 116 mg/dL (<100); Potassium 4.4 mmol/L (3.3-5.1); Sodium 137 mmol/L (135-145); Total Protein 7.4 g/dL (6.5-8.0); Triglycerides 72 mg/dL (<150)
[2024-03-01 12:17] LABS: TSH reflex Free T4 2.65 uIU/mL (0.32-4.0)
[2024-03-01 12:38] LABS: HIV AB/AG Nonreactive (Nonreactive); HIV Num 1 0.04 S/CO (0.00-0.99)
[2024-03-01 15:48] LABS: CT PCR NOT DETECTED (Not Detect.); NG PCR NOT DETECTED (Not Detect.)
[2024-03-03 12:58] LABS: HCV Log PCR <1.18 NOT DETECTED Log IU/mL (NOT DETECTED); HepC Viral Load <15 NOT DETECTED IU/mL (NOT DETECTED)
[2024-03-05 11:48] LABS: RPR Rapid Plasma Reagin NON-REACTIVE (NON-REACTIVE)
== END 2024-03-01 08:50 | disposition home or self-care (01) ==
LOC: HO.HHCL 08:49
PROVIDERS: Visit Provider Registered Nurse
DX: Z00.00 Encounter for general adult medical examination without abnormal findings (principal)
CPT/HCPCS: 36415; 80053; 80061; 83036; 84443; 85025; 86592; 87389; 87491; 87522; 87591

== ENCOUNTER 2024-03-13 08:45 | Outpatient (REF) | payer MEDICAID, SELFPAY ==
--- NOTE | ~2024-03-13 | US_ITS ---
EXAMINATION: US RETROPERITONEAL LIMITED (RENAL ONLY) CLINICAL INFORMATION: Hydronephrosis. COMPARISON: Renal ultrasound 10/12/2022 and 04/14/2021. CT abdomen and pelvis 01/23/2022. CT urogram 06/11/2021. TECHNIQUE: Real-time imaging of the kidneys. FINDINGS: RIGHT KIDNEY: 9.3 x 4.2 x 4.7 cm (SAG x AP x TRV). The right kidney is atrophic. 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 There is marked hydronephrosis of the upper pole collecting system with very little surrounding parenchyma. These findings are much better demonstrated on prior CT exams. The upper pole cortex is essentially nonexistent with normal thickness of the majority of the rest of the kidney. No renal calculi. No renal masses. LEFT KIDNEY: 12.5 x 6.3 x 5.6 cm (SAG x AP x TRV). The kidney is normal in size, contour, and echogenicity. Renal cortical thickness is normal. No calculi or focal parenchymal lesions. No hydronephrosis. ADDITIONAL FINDINGS: Although not requested, the bladder was examined which demonstrated a markedly dilated right ureter down to the level of the bladder measuring 1.1 cm with a ureterocele noted. US/US renal BI IMPRESSION: 1. 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 2. Normal-appearing left kidney. 3. Markedly dilated right ureter down to the level of the bladder with a ureterocele. Electronically signed by: Se Cedillo MD 03/30/2024 01:36 PM EDT
== END 2024-03-13 08:46 | disposition home or self-care (01) ==
LOC: HO.US 08:45
PROVIDERS: PCP Nurse Practitioner; Visit Provider Registered Nurse
DX: N13.39 Other hydronephrosis (principal)
CPT/HCPCS: 76775

== ENCOUNTER 2024-03-29 11:51 | Outpatient (RCR) | payer MEDICAID, SELFPAY ==
--- NOTE | 2024-03-29 13:29 | MHC.PT.EP ---
[facility] [place] [facility] [place] [facility] [place] [facility] [address] [place] [address] [phone] F: [phone] F: [phone] F: [phone] F: [phone] Physical Therapy Plan of Care Date of Evaluation: 03/29/24 Date of Surgery: N/A Diagnosis: bilateral calf pain (RL) Assessment: pt is a 28 y/o female presenting to physical therapy w/ referring diagnosis of bilateral calf pain. Impairments include pain, decreased range of motion, decreased strength, impaired functional mobility, impaired postural awareness, and altered ambulation mechanics. pt is a good candidate for skilled PT due to age, potential remediation of impairments, typical disease/condition progression and prognosis, comorbidities, and motivation. pt would benefit from skilled PT intervention to provide a tailored strengthening and stretching exercise program, functional training, gait training, postural re-training, neuromuscular re-education, modalities as needed for pain, equipment safety demonstration. Frequency and Duration: The patient will be seen 2x/wk for 4 wks Short Term Goals: pt will be I w/ HEP to promote self-management of condition. pt will improve B ankle DF by at least 10 degrees to remediate gait impairments on even ground. Television Script Writer Goals: pt will report a statistically significant improvement in self-reported outcome measure, LEFI, to promote return to PLOF. pt will ambulate 2200' w/ <2/10 B calf pain to promote return to community ambulation. Treatment Plan: Modalities to reduce pain, spasms and effusion. Manual therapy to restore motion and function. Therapeutic exercise to improve strength and flexibility. Neuromuscular re-education for posture and balance. Therapeutic activities to return to functional activities of daily living. Electronically signed by: Alta Pope PT, DPT Please sign and return to therapist. Thank you for your referral.
--- NOTE | 2024-04-23 15:32 | MHC.PT.DC ---
[facility] [place] Office [place] Office [place] Office [address] [place] [address] [facility] [phone] F: [phone] F: [phone] F: [phone] F: [phone] Physical Therapy Discharge Report Diagnosis: bilateral calf pain (RL) Date of Surgery: N/A Date of Evaluation: 03/29/24 Date of Discharge: 04/23/24 Treatments to Date: 1 Cancellations to Date: 2 No Shows to Date: 3 Discharge Status: Visit Non-compliance Discharge Summary: The patient is being discharged for attendance non-compliance. Electronically signed by: Alta Pope PT, DPT Please sign and return to therapist. Thank you for your referral.
== END 2024-04-23 15:32 | disposition home or self-care (01) ==
LOC: HO.PT 11:51
PROVIDERS: PCP Registered Nurse; Visit Provider Registered Nurse
DX: M79.661 Pain in right lower leg (principal); M79.662 Pain in left lower leg
CPT/HCPCS: 97110; 97161

== ENCOUNTER 2024-10-17 12:02 | Outpatient (REF) | payer MEDICAID, SELFPAY ==
--- OUTSIDE RECORDS SUMMARY | 2024-10-17 13:17 | XMS_ITS | Encounter Summary ---
Author Organization [employer] Address [address] [place] [address] Care Team Providers Care Internist Medical Doctor Md Name Role Phone Viviana Sandhu Primary Care Provider [phone] Encounter Details Date Type Department Care Team ([facility] st Contact Info) Description 03/05/2024 Orders Only [facility] [address] [place], [place] [phone] Viviana Sandhu FNP [address] [place], [place] [phone] Iron deficiency anemia, unspecified iron deficiency anemia type (Primary Dx) Social History Tobacco Use Types Packs/Day Years Used Date Smoking Tobacco: Never Smokeless Tobacco: Never Alcohol Use Standard Drinks/Week Comments Never 0 (1 standard drink = 0.6 oz pur e alcohol) Depression Answer Date Recorded Patient Health Questionnaire-9 Score 1 02/29/2024 Patient Health Questionnaire-9 Score 1 02/29/2024 Last PHQ-9: Questionnaire Data Not on file 0 02/29/2024 Housing Stability Answer Date Recorded What is your housing situation today? I have ekaterina moore 02/29/[address] you li ve. Do you have problems with any of the following? None of the above 02/29/2024 Food Insecurity Answer Date Recorded Within the past 12 months, y ou worried that your food would run out before you got money to buy more: Never True 02/29/2024 Within the past 12 months,th e food you bought just didn't last and you didn't have enough money to get more: Never True Transportation Answer Date Recorded In the past 12 months, has l ack of transportation kept you from medical appts, meetings, work or from getting things needed for daily living? No 02/29/2024 Utilities Answer Date Recorded In the past 12 months, has t he electric, gas, oil or water company threatened to shut off services in your home? No 02/29/2024 Depression Answer Date Recorded Patient Health Questionnaire-2 Score 0 02/29/2024 Internet Access Answer Date Recorded Internet Access Q1 Yes 02/29/2024 Internet Access Q2 Not on file 02/29/2024 Comments No Sex and Gender Information Value Date Recorded Sex Assigned at Female 04/12/2022 10:22 AM EDT Legal Sex Female 10:22 AM EDT Gender Identity Female 04/12/2022 10:22 AM EDT Sexual Orientation Straight 04/12/2022 10 :22 AM EDT documented as of this encounter Plan of Treatment Upcoming Encounters Date Type Department Care Team (Late st Contact Info) Description 01/23/2025 11:30 AM EDT Office Visit [facility] [address] [place] [address] Viviana Sandhu, NEWSPAPER COLUMNIST [address] [place] [address] Scheduled Orders Name Type Priority Associated Diagnoses Orde r Schedule CBC auto differential Lab Routine Iron deficiency anemia, unspecified iron deficiency anemia type Expected: 03/05/2024 (Approximate), Expires: 03/05/2025 Iron And Total Iron Binding Capacity Lab Routine Iron deficiency anemia, unspecified iron deficiency anemia type Expected: 03/05/2024, Expires: 03/05/2025 Ferritin Lab Routine Iron deficiency anemia, unspecified iron deficiency anemia type Expected: 03/05/2024, Expires: 03/05/2025 documented as of this encounter Procedures Procedure Name Priority Date/Time Associated Diagnosis Comments US RENAL BI Routine 03/13/2024 8:54 AM EDT documented in this encounter Results * US RENAL BI (03/13/2024 8:54 AM EDT) Anatomical Region Laterality Modality Abdomen Ultrasound 03/13/2024 8:54 AM EDT Narrative 03/30/2024 1:39 PM EDT ? [facility] ?[address] ?[place] [address] ? Ultrasound Report ? Signed ? Patient: Aldeco,Viviana ?MR#: [id number] ?? 1 ? : 1995 ?Acct:[id number] ? Age/Sex: 28 / F ?ADM Date: 03/13/24 ? Loc: HO.US ? Attending Dr: Viviana WILLIS ? Ordering Physician: Viviana Sandhu ?? Date of Service: 03/13/24 ?? Procedure(s): US renal BI ?? Accession Number(s): [id number] ? cc: Ashley Wren ; Viviana Sandhu ? EXAMINATION: ?? US RETROPERITONEAL LIMITED (RENAL ONLY) ? CLINICAL INFORMATION: ?? Hydronephrosis. ? COMPARISON: ?? Renal ultrasound 10/12/2022 and 04/14/2021. CT abdomen and pelvis ?? 01/23/2022. CT urogram 06/11/2021. ? TECHNIQUE: ?? Real-time imaging of the kidneys. ? FINDINGS: ? RIGHT KIDNEY: 9.3 x 4.2 x 4.7 cm (SAG x AP x TRV). The right kidney is ?? atrophic. 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 to the level of the bladder. There is marked hydronephrosis of the ?? upper pole collecting system with very little surrounding parenchyma. ?? These findings are much better demonstrated on prior CT exams. The ?? upper pole cortex is essentially nonexistent with normal thickness of ?? the majority of the rest of the kidney. No renal calculi. No renal ?? masses. ? LEFT KIDNEY: 12.5 x 6.3 x 5.6 cm (SAG x AP x TRV). The kidney is normal ?? in size, contour, and echogenicity. Renal cortical thickness is normal. ?? No calculi or focal parenchymal lesions. No hydronephrosis. ? ADDITIONAL FINDINGS: Although not requested, the bladder was examined ?? which demonstrated a markedly dilated right ureter down to the level of ?? the bladder measuring 1.1 cm with a ureterocele noted. ? US/US renal BI ?? IMPRESSION: ?? 1. 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 hydronephrosis of the upper pole moiety with very little surrounding ?? parenchyma. ? 2. Normal-appearing left kidney. ? 3. Markedly dilated right ureter down to the level of the bladder with ?? a ureterocele. ? Electronically signed by: ??Se Cedillo MD ??03/30/2024 01:36 PM EDT ? Dictated By: ?Se Cedillo MD ? Signed By: ?<Electronically signed by Se Cedillo MD in OV> ? 03/30/246 ? DD/ 0854 ? TD/TT: 03/13/2414 ? Pack Mule Worker: SS ? Procedure Note Donmaria mter, Image - 03/30/2024 [place] [id number] Ultrasound Report Signed Patient: Viviana QuintanaMR#: [id number] 1 : 1995Acct:[id number] Age/Sex: M Date: 03/13/24 Loc: HO.US Attending Dr: Viviana IWLLIS Ordering Physician: Viviana Sandhu Date of Service: 03/13/24 Procedure(s): US renal BI Accession Number(s): [id number] cc: Ashley Wren ; Viviana Sandhu EXAMINATION: US RETROPERITONEAL LIMITED (RENAL ONLY) CLINICAL INFORMATION: Hydronephrosis. COMPARISON: Renal ultrasound 10/12/2022 and 04/14/2021. CT abdomen and pelvis 01/23/2022. CT urogram 06/11/2021. TECHNIQUE: Real-time imaging of the kidneys. FINDINGS: RIGHT KIDNEY: 9.3 x 4.2 x 4.7 cm (SAG x AP x TRV). The right kidney is atrophic. 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 There is marked hydronephrosis of the upper pole collecting system with very little surrounding parenchyma. These findings are much better demonstrated on prior CT exams. The upper pole cortex is essentially nonexistent with normal thickness of the majority of the rest of the kidney. No renal calculi. No renal masses. LEFT KIDNEY: 12.5 x 6.3 x 5.6 cm (SAG x AP x TRV). The kidney is normal in size, contour, and echogenicity. Renal cortical thickness is normal. No calculi or focal parenchymal lesions. No hydronephrosis. ADDITIONAL FINDINGS: Although not requested, the bladder was examined which demonstrated a markedly dilated right ureter down to the level of the bladder measuring 1.1 cm with a ureterocele noted. US/US renal BI IMPRESSION: 1. 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 2. Normal-appearing left kidney. 3. Markedly dilated right ureter down to the level of the bladder with a ureterocele. Electronically signed by: Se Cedillo MD 03/30/2024 01:36 PM EDT RP Dictated By: Se Cedillo MD Signed By: <Electronically signed by Se Cedillo MD in OV> 03/30/24 1336 DD/ 0854 TD/TT: 03/13/24 0914 Pack Mule Worker: SS us Viviana WILLIS IMG US PROCEDURES Final Result documented in this encounter Visit Diagnoses Diagnosis Iron deficiency anemia, unspecified iron deficiency anemia type- Primary documented in this encounter Additional Health Concerns Assessment Noted Time PHQ-9 Depression Total Score: 1 02/29/20 24 10:08 AM EDT documented as of this encounter Care Teams Internist Medical Doctor Md Relationship Specialty Start Date End Date Viviana Sandhu FNP [address] [place] [id number] PCP - General Family Medicine 05/18/22 documented as of this encounter
--- OUTSIDE RECORDS SUMMARY | 2024-10-17 13:17 | XMS_ITS | Encounter Summary ---
Author Organization [employer] Address [address] [place] [address] Care Team Providers Care Senior Research Analyst Name Role Phone Viviana Sandhu Primary Care Provider [phone] Encounter Details Date Type Department Care Team ([facility] st Contact Info) Description 03/29/2024 Telephone [facility] PEDS [address] [place], [place] [phone] Viviana Sandhu FNP [address] [place] [address] Social History Tobacco Use Types Packs/Day Years [...] Description 01/23/2025 11:30 AM EDT Office Visit [facility] [address] [place] [address] Viviana Sandhu FNP [address] [place] [address] documented as of this encounter Visit Diagnoses Not on filedocumented in this encounter Additional Health Concerns Assessment Noted Time PHQ-9 Depression Total Score: 1 02/29/20 24 10:08 AM EDT documented as of this encounter Care Teams Senior Research Analyst Relationship Specialty Start Date End Date Viviana Sandhu FNP [address] [place] [address] PCP - General Family Medicine 05/18/22 documented as of this encounter
--- OUTSIDE RECORDS SUMMARY | 2024-10-17 13:17 | XMS_ITS | Encounter Summary ---
Author Organization [facility] Address [address] [place] [phone] Phone Care Team Providers Care Head Librarian Name Role Phone Heydi Haywood MD Primary Care Provider [phone] Encounter Details Date Type Department Care Team (Late st Contact Info) Description 06/03/2011 Documentation [facility] [place] [address] [place] [address] Family Medicine, Physician [address] [place], [place] [phone] Social History Tobacco Use Types Packs/Day Years Used Date Smoking Tobacco: Never Assessed Comments Unknown Sex and Gender Information Value Date Recorded Sex Assigned at Not on file Legal Sex Female 4:42 PM EDT Gender Identity Not on file Sexual Orientation Not on file documented as of this encounter Plan of Treatment Not on file documented as of this encounter Visit Diagnoses Not on filedocumented in this encounter Care Teams Head Librarian Relationship Specialty Start Date End Date Heydi Haywood MD [address] [place] [address] BRYNN Crum [id number] PCP - General 01/21/17 07/28/22 documented as of this encounter
--- OUTSIDE RECORDS SUMMARY | 2024-10-17 13:18 | XMS_ITS | Encounter Summary ---
Author Organization [facility] Address [address] [place] [phone] Phone Care Team Providers Care Carbon Grinder Name Role Phone Heydi Haywood MD Primary Care Provider [phone] Encounter Details Date Type Department Care Team (Late st Contact Info) Description 04/18/2012 [place] [facility] [place] [address] [place] [address] Family Medicine, Physician [address] [place], [place] [phone] Social History Tobacco Use Types Packs/Day Years [...] on filedocumented in this encounter Care Teams Carbon Grinder Relationship Specialty Start Date End Date Heydi Haywood MD [address] [place] [address] BRYNN Crum [address] PCP - General 01/21/17 07/28/22 documented as of this encounter
--- OUTSIDE RECORDS SUMMARY | 2024-10-17 13:18 | XMS_ITS | Encounter Summary ---
Author Organization [employer] Address [address] [place] [address] Care Team Providers Care Sweatband Decorating Machine Operator Name Role Phone Viviana Sandhu Primary Care Provider [phone] Reason for Visit * Reason Comments Care Coordination CHW outreach for SDO H PT-1 and food needs-referral completed Encounter Details Date Type Department Care Team (Latest Contact Info) Description 10/17/2024 Patient Outreach [facility] [address] [place] [address] Viviana Sandhu FNP [address] [place] [address] Care Coordination (CHW outreach for SDOH PT-1 and food needs-referral completed /) Social History Tobacco Use Types Packs/Day Years Used Date Smoking Tobacco: Never Smokeless Tobacco: Never Alcohol Use Standard Drinks/Week Comments Never 0 (1 standard drink = 0.6 oz pur e alcohol) Depression Answer Date Recorded Patient Health Questionnaire-9 Score 2 10/17/2024 Patient Health Questionnaire-9 Score 2 10/17/2024 Last PHQ-9: Questionnaire Data Not on file 0 10/17/2024 Housing Stability Answer Date Recorded What is your housing situation today? I have ekaterina moore 02/29/[address] you li ve. Do you have problems with any of the following? None of the above 02/29/2024 Food Insecurity Answer Date Recorded Within the past 12 months, y ou worried that your food would run out before you got money to buy more: Sometimes True 2024 Within the past 12 months,th e food you bought just didn't last and you didn't have enough money to get more: Sometimes True 10/17/2024 Transportation Answer Date Recorded In the past 12 months, has l ack of transportation kept you from medical appts, meetings, work or from getting things needed for daily living? No 02/29/2024 Utilities Answer Date Recorded In the past 12 months, has t he electric, gas, oil or water company threatened to shut off services in your home? I am not sure 10/17/2024 Depression Answer Date Recorded Patient Health Questionnaire-2 Score 0 10/17/2024 Internet Access Answer Date Recorded Internet Access Q1 Yes 02/29/2024 Internet Access Q2 Not on file 02/29/2024 Comments No Sex and Gender Information Value Date Recorded Sex Assigned at Female 04/12/2022 10:22 AM EDT Legal Sex Female 10:22 AM EDT Gender Identity Female 04/12/2022 10:22 AM EDT Sexual Orientation Straight 04/12/2022 10 :22 AM EDT documented as of this encounter Progress Notes * Emre Zuniga - 10/17/2024 11:34 AM EDT CHW Emre Zuniga, placed outbound call to patient for assistance with SDOH as a referral was received by the provider. Patient's name and were confirmed. Patient screened positive for the following SDOH food insecurities. Patient states family in on SNAP program at this time. CHW referral patient to the local list of pantries in the area for help. Patient verbalizes understanding, and ableto agree with plan to follow up. Patient educated on extended clinic hours on Mondays through Wednesdays, and Walk-In Urgent Care Located in [facility] of [facility]. Patient provided with after-hours line for [facility], , which offer night time triage service and option to transfer to fraud prevention analyst provider if needed. documented in this encounter Plan of Treatment Upcoming Encounters Date Type Department Care Team ([facility] st Contact Info) Description 01/23/2025 11:30 AM EDT Office Visit [facility] [address] [place] [address] Viviana Sandhu FNP [address] [place] [address] documented as of this encounter Visit Diagnoses Not on filedocumented in this encounter Additional Health Concerns Assessment Noted Time PHQ-9 Depression Total Score: 2 10/18/19 25 11:16 AM EDT documented as of this encounter Care Teams Sweatband Decorating Machine Operator Relationship Specialty Start Date End Date Viviana Sandhu FNP [address] [place] [address] PCP - General Family Medicine 05/18/22 documented as of this encounter
--- OUTSIDE RECORDS SUMMARY | 2024-10-17 13:18 | XMS_ITS | Encounter Summary ---
Author Organization [employer] Address [address] [place] [address] Care Team Providers Care Shipping And Receiving Operator Name Role Phone Viviana Sandhu Primary Care Provider Reason for Visit * Reason Comments Med Refill Encounter Details Date Type Department Care Team ([facility] st Contact Info) Description 10/17/2024 Refill [facility] [address] [place] [address] Viviana Sandhu FNP [address] [place], [place] [phone] Social History Tobacco Use Types Packs/Day Years [...] Description 01/23/2025 11:30 AM EDT Office Visit [facility] [address] [place] [address] Viviana Sandhu FNP [address] [place] [address] documented as of this encounter Visit Diagnoses Not on filedocumented in this encounter Additional Health Concerns Assessment Noted Time PHQ-9 Depression Total Score: 2 10/18/19 25 11:16 AM EDT documented as of this encounter Care Teams Shipping And Receiving Operator Relationship Specialty Start Date End Date Viviana Sandhu FNP [address] [place] [address] PCP - General Family Medicine 05/18/22 documented as of this encounter
--- OUTSIDE RECORDS SUMMARY | 2024-10-17 13:18 | XMS_ITS | Encounter Summary ---
Author Organization [facility] Address [address] [place] [address] Phone Care Team Providers Care Metal Forger'S Assistant Name Role Phone Heydi Haywood MD Primary Care Provider [phone] Encounter Details Date Type Department Care Team (Late st Contact Info) Description 01/27/2017 Conversion Encounter [facility] [place] [address] [place] [address] Social History Tobacco Use Types Packs/Day Years Used Date Smoking Tobacco: Never Comments:Never smoker Comments Unknown Sex and Gender Information Value Date Recorded Sex Assigned at Not on file Legal Sex Female 4:42 PM EDT Gender Identity Not on file Sexual Orientation Not on file documented as of this encounter Plan of Treatment Not on file documented as of this encounter Visit Diagnoses Not on filedocumented in this encounter Care Teams Metal Forger'S Assistant Relationship Specialty Start Date End Date Heydi Haywood MD [address] [place] [address] PCP - General 01/21/17 07/28/22 documented as of this encounter
--- OUTSIDE RECORDS SUMMARY | 2024-10-17 13:18 | XMS_ITS | Clinical Summary ---
Author Organization [employer] Address [address] [place] [address] Care Team Providers Care Correctional Supervisor Lieutenant Name Role Phone Viviana Sandhu Primary Care Provider [phone] Allergies No known active allergies Medications Drospirenone (Slynd) 4 MG tablet Take 1 tablet by mouth Once per day. 28 tablet 11/24/19 24 Active clindamycin (Cleocin T) 1 % lotionIndications: Skin lesion of breast APPLY TOPICALLY UNDER BREAST IN THE MORNING AND AT BEDTIME NEEDED FOR LESIONS 60 mL 2 02/27/20 24 Active multivitamin () 27-0.8 MG tabletIndications: Routine health maintenance TAKE 1 TABLET BY MOUTH EVERY DAY WITH FOOD 90 tablet 2 02/27/20 24 Active acetaminophen (Tylenol 8 Hour) 650 MG ER tablet Take 1 tablet (650 mg) by mouth every 8 (eight) hours if needed (pain or fever). 100 tablet 03/01/20 24 Active Mometasone Furoate (Asmanex HFA) 100 MCG/ACT aerosolIndications :Mild persistent asthma without complication INHALE 2 PUFFS BY MOUTH TWICE DAILY FOR ASTHMA PREVENTION 13 g 3 03/01/20 24 Active albuterol (Ventolin HFA) 108 (90 Base) MCG/ACT inhalerIndications :Mild persistent asthma without complication Inhale 2 puffs Every 4-6 hours as needed for wheezing or shortness of breath. 18 g 03/01/20 24 Active albuterol (2.5 MG/3ML) 0.083% nebulizer solutionIndication s:Mild persistent asthma without complication USE 3 ML VIA NEBULIZER EVERY 4-6 HOURS NEEDED FOR WHEEZING OR SHORTNESS OF BREATH 75 mL 1 03/01/20 24 Active DULoxetine (Cymbalta) [address] capsuleIndications :Chronic midline low back pain without sciatica TAKE 1 CAPSULE BY MOUTH EVERY DAY FOR CHRONIC BACK PAIN 90 capsule 1 03/01/20 24 Active lidocaine (Lidoderm) 5 % patchIndications:C hronic midline low back pain without sciatica Apply 1 patch topically if needed each day (PAIN). Remove & discard patch within 12 hours or as directed by MD. 30 patch 2 03/01/20 24 Active magnesium oxide (Mag-Ox) 400 (240 Mg) MG tabletIndications: Migraine without status migrainosus, not intractable, unspecified migraine type Take 1 tablet (400 mg) by mouth at bedtime. 90 tablet 3 03/01/20 24 Active levothyroxine (Synthroid, Levoxyl) 100 MCG tabletIndications: Other specified hypothyroidism TAKE 1 TABLET(100 MCG) BY MOUTH BEFORE BREAKFAST 90 tablet 3 03/01/20 24 Active amitriptyline (Elavil) 25 MG tabletIndications: Other migraine without status migrainosus, not intractable TAKE 1 TABLET(25 MG) BY MOUTH AT BEDTIME 90 tablet 3 08/28/19 25 Active Diclofenac Sodium 1 % gelIndications:Rig ht calf pain Apply thin layer by topical route (quantity as directed on package insert) to affected area of pain 3 times daily as needed. 50 g 3 10/18/19 25 Active rizatriptan (Maxalt) 10 MG tabletIndications: Migraine without status migrainosus, not intractable, unspecified migraine type Take 1 tablet (10 mg) by mouth 1 (one) time if needed for migraine. May repeat in 2 hours if unresolved. Do not exceed 30 mg in 24 hours. 9 tablet 10/18/19 25 025 Active ZOLMitriptan (Zomig) 2.5 MG tabletIndications: Other migraine without status migrainosus, not intractable TAKE 1 TABLET(2.5 MG) BY MOUTH 1 TIME NEEDED FOR MIGRAINE 9 tablet 11 02/27/20 24 025 Discontin ued(Thera py completed ) Active Problems Problem Noted Date Diagnosed Date Healthcare maintenance 02/29/2024 Overview (02/29/2024): Last PE: 02/29/24 Pap: 01/26/24 NILM (next due Jan 2027) OPH: [facility] - last visit 08/31/23, glasses rx Migraine 06/14/2022 Assessment & Plan (02/29/2024 8:51 AM EDT): -Well controlled -Continue with amitriptyline 25mg and magnesium 400mg at bedtime -Continue Zolmitriptan PRN Assessment & Plan (07/27/2023 7:14 PM EST): -Well controlled -Continue with amitriptyline 25mg and magnesium 400mg at bedtime -Continue Zolmitriptan PRN Assessment & Plan (06/30/2023 7:39 AM EST): -Continue with amitriptyline 25mg at bedtime -Continue Zolmitriptan PRN -START magnesium 400mg once daily -Consult pharmacy regarding Nervivo supplement Assessment & Plan (01/30/2023 8:50 AM EDT): -Continue with amitriptyline 25mg at bedtime. -Continue Zolmitriptan PRN Assessment & Plan (06/29/2022 10:47 AM EST): -Continue with amitriptyline 25mg at bedtime. 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 Benavidez. Assessment & Plan (03/01/2024 1:53 PM EDT): Renal US ordered 03/01/24 Asthma 04/26/2021 Assessment & Plan (03/01/2024 1:38 PM EDT): -Maintenance: Asmanex HFA 100 mcg/act, 2 puffs BID -Rescue: albuterol PRN -Viviana reports that her asthma has been well controlled with rescue inhaler ONLY. Using less than 2x/week. Continue current therapy, follow up with any worsening of symptoms for consideration of step up therapy. Would currently classify as intermittent asthma. Assessment & Plan (06/29/2022 10:56 AM EST): -Reports well controled with Flovent and albuterol PRN Hypothyroidism 04/26/2021 Overview (03/01/2024): -Continues with levothyroxine 100mcg daily Lab Results Component Value Date TSH 2.65 03/01/2024 Assessment & Plan (06/30/2023 7:35 AM EST): -Repeat TSH ordered today Assessment & Plan (06/29/2022 10:48 AM EST): -Current dose levothyroxine 88mcg daily -Recheck TSH ADD: Lab Results Component Value Date TSH 5.59 (H) 06/16/2022 Will INCREASE to levothyroxine 100mcg daily and repeat in 4-6 weeks DUB (dysfunctional uterine bleeding) 11/03/2017 Anemia 03/23/2017 Assessment & Plan (03/01/2024 1:39 PM EDT): -Currently resolved -H/H 12.6/39.18 Jun 2023 -Continued off of iron supplementation at this time -Encourage iron-rich foods -Repeat CBC Assessment & Plan (07/27/2023 7:15 PM EST): -Currently resolved -H/H 12.6/39.18 Jun 2023 -Continued off of iron supplementation at this time -Encourage iron-rich foods Assessment & Plan (06/30/2023 7:35 AM EST): -H/H 12.6/39.2 and ferritin 30 ng/mL in Jan 2023 -Continued off of iron supplementation at this time -Encourage iron-rich foods -Repeat iron studies and CBC today Assessment & Plan (01/30/2023 8:48 AM EDT): -H/H 12.6/39.2 and ferritin 30 ng/mL in Jan 2023 -Continue off of iron supplementation at this time -Encourage iron-rich foods Assessment & Plan (08/15/2022 3:56 PM EST): -Ferritin WNL Jun 2022 -Trial 3 months off of iron supplementation. Repeat labs in 3 months. -Follow up sooner as needed. Pt in agreement with plan. 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 Resolved Problems Problem Noted Date Diagnosed Date Resolved Date Overweight 08/09/2013 07/27/2023 Encounters Date Type Department Care Team Description 10/17/2024 10:30 AM EDT Office Visit [facility] [address] [place] [address] Viviana Sandhu FNP Right calf pain (Primary Dx); Iron deficiency anemia, unspecified iron deficiency anemia type; Healthcare maintenance; Migraine without status migrainosus, not intractable, unspecified migraine type 10/17/2024 Refill [facility] [address] [place] [address] Viviana Sandhu FNP 10/17/2024 Patient Outreach [facility] [address] [place] [address] Viviana Sandhu FNP Care Coordination ([facility] outreach for SDOH PT-1 and food needs-referral completed /) 10/17/2024 Travel 10/16/2024 Telephone [facility] [address] [place], [place] [phone] Viviana Sandhu FNP Chart Prep 08/28/2024 1:00 PM EDT Office Visit [facility] OPT[facility] [address] [place] [address] Timbo, Mirta, OD Myopia of both eyes (Primary Dx) 08/28/2024 Travel 08/25/2024 Refill [facility] [address] [place] [address] Viviana Sandhu FNP Other migraine without status migrainosus, not intractable 08/24/2024 Population Health Risk Score [facility] [address] [id number] Provider, Population Health Generic 07/26/2024 Outside Procedure [facility] [address] [place] [address] Mirta Izquierdo, OD Myopia of both eyes (Primary Dx) from Last 3 Months Immunizations Name Administration Dates Next Due DTaP, 5 pertussis antigens 08/22/2000,,02/12/1997,12/10,1996 HPV, Quadrivalent 01/02/2009,09/02/2008,08/31/19 08 Hep B, Adolescent or Pediatric 05/06/1997,1996,1996 Hib (PRP-T) 11/23/1997, 7,1996,10/16 IPV 08/22/2000 Influenza injectable quadriv alent IIV4 with preservative 04/06/2019,03/23/2018 Influenza injectable quadriv alent preservative free 03/07/2023,03/01/2022,03/16/2021,03/22,05/05/2015 Influenza, IIV3, injectable 04/01/2014, 9,03/26/2009 Influenza, Split (incl. jarad fied surface antigen) 04/26/2013,07/13/2012,03/30/2012 Influenza, seasonal, injecta ble, preservative free 02/29/2024 MMR 08/11/2002,11/28/1997 Meningococcal MCV4P ACYW-135 08/31/2007 Meningococcal MPSV4 08/31/2007 Novel [id number], all formulations 04/16/2009 OPV, Trivalent 02/12/1997,1996,1996 Pfizer Covid-19 Vaccine 12+ 03/11/2023 Pneumococcal Conjugate PCV 20 02/29/2024 Tdap 07/14/2016,08/31/2007 Varicella 09/02/2008,07/14/1997 Family History Medical History Relation Name Comments Diabetes Father Thyroid disease Maternal Grandmother Heart murmur Mother Hyperlipidemia Mother Hypothyroidism Mother Relation Name Status Comments Father Maternal Grandmother Mother Social History Tobacco Use Types Packs/Day Years Used Date Smoking Tobacco: Never Smokeless Tobacco: Never Tobacco Cessation:Counseling Given: Not Answered Alcohol Use Standard Drinks/Week Comments Never 0 [...] Orientation Straight 04/12/2022 10 :22 AM EDT Last Filed Vital Signs Vital Sign Reading Time Taken Comments Blood Pressure 115/76 10/17/2024 10:50 AM EDT Pulse 93 10/17/2024 10:50 AM EDT Temperature 36.2 ??C (97.2 ??F) 10/17/2024 10:50 AM E DT Respiratory Rate 16 10/17/2024 10:50 AM EDT Oxygen Saturation 98% 10/17/2024 10:50 AM EDT Inhaled Oxygen Concentration - - Weight 80.5 kg (177 lb 6 oz) 10/17/2024 10:50 AM EDT Height 156.2 cm (5' 1.5 ) 10/17/2024 10:50 AM ED T Body Mass Index 32.97 10/17/2024 10:50 AM EDT Plan of Treatment Upcoming Encounters Date Type Department Care Team (Late st Contact Info) Description 01/23/2025 11:30 AM EDT Office Visit [facility] [address] [place] [address] Viviana Sandhu, LOCKSTITCH BACK MAKER [address] [place] [address] Health Maintenance Due Date Last Done Comments COVID-19 Vaccine ( season) 2024 03/11/2023, 04/05/2022, 05/22/2021, Additional history exists Family Planning (PISQ) 01/25/2025 01/26/2024 Alcohol/Substance Use Screening 02/28/2025 02/29/2024 Depression Screening 10/17/2025 10/17/2024, 10/18/19 SDOH Screening 10/17/2025 10/17/2024 Tobacco Screening 10/17/2025 10/17/2024 DTaP/Tdap/Td Vaccines (8 - Td or Tdap) 07/14/2026 07/14/2016, 08/31/2007, 08/22/2000, Additional history exists Pap Smear 01/25/2027 01/26/2024, 11/24/2023 Zoster Vaccines (1 of 2) 2046 RSV Patients and Patients Aged 60 years or older (1 - 1-dose 75+ series) 2071 Hepatitis B Vaccines Completed 05/06/1997, 1996, 1996 HIB Vaccines Completed 11/23/1997, 07/1996, 1996, Additional history exists IPV Vaccines Completed 08/22/2000, 07/1996, 1996, Additional history exists Meningococcal Vaccine Aged Out 08/31/2007, 008 No longer eligible based on patient's age to complete this topic HPV Vaccines Completed 01/02/2009, 08/12, 08/31/2007 Influenza Vaccine Completed 02/29/2024, , 03/01/2022, Additional history exists Pneumococcal Vaccine: Pediatrics (0 to 5 Years) and At-Risk Patients (6 to 49) Years) Completed 02/29/2024 HIV Screening Completed 03/01/2024, 02/08/2024 Hepatitis C Screening Completed 03/01/2024, 024 Hepatitis A Vaccines Aged Out No long er eligible based on patient's age to complete this topic RSV under 20 months Aged Out No longe r eligible based on patient's age to complete this topic Rotavirus Vaccines Aged Out No longer eligible based on patient's age to complete this topic Procedures Procedure Name Priority Date/Time Associated Diagnosis Comments HEPATITIS C VIRAL RNA, QUANTITATIVE, REAL-TIME PCR Routine 03/01/2024 9:03 AM EDT Healthcare maintenance HIV 1/2 ANTIGEN/ANTIBODY, FOURTH GENERATION W/RFL Routine 03/01/2024 9:03 AM EDT Healthcare maintenance [employer] PAP Routine 01/26/2024 11:06 AM EDT Unsatisfactory cervical cytology smear from Last 3 Months or Most Recently Relevant to Health Maintenance Results * Hepatitis C Viral RNA, Quantitative, Real-Time PCR (03/01/2024 9:03 AM EDT) Hepatitis C Viral Load <15 NOT DETECTED NOT DETECTED IU/mL [facility] HCV Log PCR <1.18 NOT DETECTED NOT DETECTED Log IU/mL [facility] Comment:For additional infor matdenny, please refer tohttp://education.MediaPlatform/faq/AAJ36m3(This link is being provided for informational/educational purposes only.)THIS TEST WAS PERFORMED AT:[facility] [place] [id number] DHILLON MD Blood 03/01/2024 9:03 AM EDT 03/01/2024 11:23 AM EDT Viviana Sandhu [facility] B[facility] ORDERABLES Final Res ult Performing Organization Address [facility] de Phone Number [facility] [address] [place] [address] [phone] * HIV-1/2 Antigen and Antibodies, Fourth Generation, with Reflexes (03/01/2024 9:03 AM EDT) HIV AB/AG Nonreactive Nonreactive [facility] Comment:HIV-1 p24 Ag and/or HIV-1/HIV-2 Ab not detected.A test result that is nonreactive does not exclude thepossibility of exposure to or infection with HIV-1 and/orHIV-2. Nonreactive results in this assay for individualswith prior exposure to HIV-1 and/or HIV-2 may be due toantigen and antibody levels that are below the limit ofdetection of this assay.The [employer] HIV Ag/Ab Combo assay result andsupplemental assay results should be interpreted inconjunction with the patient's clinical presentation,history and other laboratory results. If the results areinconsistent with clinical evidence, additional testing issuggested to confirm the result. Blood Venous blood specimen / Unknown 03/01/2024 9:03 AM EDT 03/01/2024 11:23 AM EDT Viviana Sandhu [facility] ORDERABLES Final Res ult Performing Organization Address [facility] Co de Phone Number [facility] [address] [place] [address] [phone] * Pap Smear (01/26/2024 11:06 AM EDT) SOURCE: SEE NOTE [facility] Comment:None given Report Status: TNP [facility] Clinical Information: SEE NOTE [facility] Comment:None given LMP: SEE NOTE [facility] Comment:NONE GIVEN Prev. PAP: SEE NOTE [facility] Comment:NONE GIVEN Prev. BX: SEE NOTE [facility] Comment:NONE GIVEN Statement Of Adequacy: SEE NOTE [facility] Comment:Satisfactory for clarence luation.Endocervical/transformation zone componentpresent. General Categorization: [facility] Interpretation/Result: SEE NOTE [facility] Comment:Cytology Results: Ne gative for intraepitheliallesion or malignancy. Cytology Comment SEE NOTE [facility] Comment:This Pap test has be en evaluated with computerassisted technology. Educational Program Assistant: SEE NOTE [facility] Comment:GSG, CT(ASCP)CT scre ening location: [address] [address] Review Educational Program Assistant: [facility] Pathologist [facility] PAP Infection [facility] See Note SEE NOTE [facility] Comment:EXPLANATORY NOTE:The Pap is a screening test for cervical cancer. It isnot a diagnostic test and is subject to false negativeand false positive results. It is most reliable when asatisfactory sample, regularly obtained, is submittedwith relevant clinical findings and history, and whenthe Pap result is evaluated along with historic andcurrent clinical information.THIS TEST WAS PERFORMED AT:[facility] [address] [id number] DHILLON MD Pap Vial Vaginal structure / Unknown 01/26/2024 11:06 AM EDT 01/26/2024 5:44 PM EDT Narrative [facility] - 01/31/2024 11:58 AM EDT SEE RESULTS IN EMR us [facility] PATH[facility]Y ORDERABLES Final Result [facility] [address] [place] [address] [phone] from Last 3 Months or Most Recently Relevant to Health Maintenance Insurance [facility] [address] Care Teams Correctional Supervisor Lieutenant Relationship Specialty Start Date End Date [place] [address] PCP - General Family Medicine 05/18/22
--- OUTSIDE RECORDS SUMMARY | 2024-10-17 13:18 | XMS_ITS | Encounter Summary ---
Author Organization [employer] Address [address] [place] [address] Care Team Providers Care Team Sports Sales Associate Name Role Phone Viviana Sandhu Primary Care Provider [phone] Reason for Referral * Consultation (Routine) - Pending Review Specialty Diagnoses / Procedures Referred By Reji alexander Referred To Contact Orthopaedic Surgery Diagnoses Right calf pain Viviana Sandhu FNP [address] [place] [address] Phone: tel: fax: Referral ID Status Reason Start Date Expiration Date Visits Requested Visits Authorized [id number] Pending Review Specialty Services Required 10/17/2024 10/17/2025 1 1 Encounter Details Date Type Department Care Team (Late st Contact Info) Description 10/17/2024 10:30 AM EDT Office Visit [facility] [address] [place] [address] Viviana Sandhu FNP [address] [place], [place] [phone] Right calf pain (Primary Dx); Iron deficiency anemia, unspecified iron deficiency anemia type; Healthcare maintenance; Migraine without status migrainosus, not intractable, unspecified migraine type Social History Tobacco Use Types Packs/Day Years [...] AM EDT documented as of this encounter Last Filed Vital Signs Vital Sign Reading [...] Mass Index 32.97 10/17/2024 10:50 AM EDT documented in this encounter Patient Instructions * Patient Instructions* LAZARO [place] - 10/17/2024 10:30 AM EDT Referral to Urology and Orthopedics will be sent for further evaluation. Please let us know if you do not receive communication from the specialist office within 2-3 weeks. Please proceed to the lab to complete blood work documented in this encounter Plan of Treatment Upcoming Encounters Date Type Department Care Team (Late st Contact Info) Description 01/23/2025 11:30 AM EDT Office Visit [facility] [address] [place], [place] [phone] Viviana Sandhu FNP [address] [place], [place] [phone] Scheduled Orders Name Type Priority Associated Diagnoses Orde r Schedule Lipid Panel, Standard Lab Routine Healthcare maintenance Expected: 10/17/2024 (Approximate), Expires: 10/17/2025 Magnesium Lab Routine Right calf pain Expected: 10/17/2024, Expires: 10/17/2025 Iron And Total Iron Binding Capacity Lab Routine Iron deficiency anemia, unspecified iron deficiency anemia type Expected: 10/17/2024, Expires: 10/17/2025 Ferritin Lab Routine Iron deficiency anemia, unspecified iron deficiency anemia type Expected: 10/17/2024, Expires: 10/17/2025 CBC auto differential Lab Routine Iron deficiency anemia, unspecified iron deficiency anemia type Expected: 10/17/2024 (Approximate), Expires: 10/17/2025 Scheduled Referrals Name Type Priority Associated Diagnoses Order Schedule Referral to Orthopaedic Surgery Outpatient Referral Routine Right calf pain Expected: 10/17/2024 (Approximate), Expires: 10/17/2025 documented as of this encounter Visit Diagnoses Diagnosis Right calf pain- Primary Iron deficiency anemia, unspecified iron deficiency anemia type Healthcare maintenance Migraine without status migrainosus, not intractable, unspecified migraine type documented in this encounter Additional Health Concerns Assessment Noted Time PHQ-9 Depression Total Score: 2 10/18/19 25 11:16 AM EDT documented as of this encounter Care Teams Team Sports Sales Associate Relationship Specialty Start Date End Date Viviana Sandhu FNP [address] [place] [address] PCP - General Family Medicine 05/18/22 documented as of this encounter
--- OUTSIDE RECORDS SUMMARY | 2024-10-17 13:18 | XMS_ITS | Encounter Summary ---
Author Organization [employer] Address [address] [place] [address] Care Team Providers Care Denitrator Name Role Phone Viviana Sandhu [employer] CE[employer] CLEANER Primary Care Provider [phone] Encounter Details Date Type Department Care Team (Latest Contact Info) Description 10/17/2024 Travel Social History Tobacco Use Types Packs/Day Years [...] Description 01/23/2025 11:30 AM EDT Office Visit [facility] [address] [place] [address] Viviana Sandhu FNP [address] [place] [address] documented as of this encounter Visit Diagnoses Not on filedocumented in this encounter Additional Health Concerns Assessment Noted Time PHQ-9 Depression Total Score: 2 10/18/19 25 11:16 AM EDT documented as of this encounter Care Teams Denitrator Relationship Specialty Start Date End Date Viviana Sandhu FNP [address] [place] [address] PCP - General Family Medicine 05/18/22 documented as of this encounter
--- OUTSIDE RECORDS SUMMARY | 2024-10-17 13:18 | XMS_ITS | Encounter Summary ---
Author Organization [employer] Address [address] [place] [address] Care Team Providers Care Waiter/Waitress Cafeteria Name Role Phone Viviana Sandhu Primary Care Provider [phone] Reason for Visit * Reason Onset Date Comments Results 03/20/2024 Encounter Details Date Type Department Care Team ([facility] st Contact Info) Description 03/20/2024 Telephone [facility] MED & PEDS [address] [place], [place] [phone] Viviana Sandhu FNP [address] [place] [address] Results Social History Tobacco Use Types Packs/Day Years [...] AM EDT documented as of this encounter Miscellaneous Notes * Telephone Encounter - Diana Lund - 03/29/2024 11:04 AM EDT TC from pt mom requesting status on Xray results. Contact pt at [phone] * Telephone Encounter - Moni Willis - 03/20/2024 1:54 PM EDT TC from pt requesting call back regarding Results. Type of results: US kidney Date when done: in February Facility: [facility] documented in this encounter Plan of Treatment Upcoming Encounters Date Type Department Care Team (Late st Contact Info) Description 01/23/2025 11:30 AM EDT Office Visit [facility] MEDIC[facility] [address] [place] [address] Viviana Sandhu FNP [address] [place] [address] documented as of this encounter Visit Diagnoses Not on filedocumented in this encounter Additional Health Concerns Assessment Noted Time PHQ-9 Depression Total Score: 1 02/29/20 24 10:08 AM EDT documented as of this encounter Care Teams Waiter/Waitress Cafeteria Relationship Specialty Start Date End Date Viviana Sandhu FNP [address] [place] [address] PCP - General Family Medicine 05/18/22 documented as of this encounter
--- OUTSIDE RECORDS SUMMARY | 2024-10-17 13:18 | XMS_ITS | Clinical Summary ---
Author Organization [facility] Address [address] [place] [address] Phone Care Team Providers Care Public Weigher Name Role Phone Unavailable Primary Care Provider Unavailabl e Immunizations Immunization Administration Dates Next Due DTaP 5 08/22/2000, 8,02/12/1997, 997,1996 H1N1 04/16/2009 HPV, Quadrivalent 01/02/2009,09/02/2008,08/31/19 08 Hep B, ped/adol 05/06/1997,1996,1996 Hib (PRP-T) 11/23/1997, 7,1996, 997 IPV 08/22/2000 Influenza Split 03/30/2012 Influenza, injectable, trivalent 03/26/2009 MMR 08/11/2002,11/28/1997 Meningococcal Conj (Menactra) MCV4P 08/31/2007 OPV 02/12/1997,1996,1996 Tdap 08/31/2007 Varicella 09/02/2008,07/14/1997 Family History Relation Name Status Comments Brother Alive Brother: Asthma Mother Alive Mother: Alive a nd well Nephew Nephew: ADD/ADH D Other Family history of Asthma, Family history of Autism Sister Alive Sister: Alive a nd well, Asthma Social History Tobacco Use Types Packs/Day Years Used Date Smoking Tobacco: Never Comments:Never smoker Comments Unknown Sex and Gender Information Value Date Recorded Sex Assigned at Not on file Legal Sex Female 4:42 PM EDT Gender Identity Not on file Sexual Orientation Not on file Last Filed Vital Signs Vital Sign Reading Time Taken Comments Blood Pressure 90/64 03/30/2012 12:00 AM EDT Pulse 76 11/16/2011 12:00 AM EDT Temperature 36.7 ??C (98 ??F) 03/30/2012 12:00 AM EDT Respiratory Rate - - Oxygen Saturation - - Inhaled Oxygen Concentration - - Weight 60.8 kg (134 lb) 03/30/2012 12:00 AM EDT Height 154.4 cm (5' 0.8 ) 03/30/2012 12:00 AM ED T Body Mass Index 25.49 03/30/2012 12:00 AM EDT Plan of Treatment Health Maintenance Due Date Last Done Comments Varicella Vaccines (2 of 2 - 2-dose childhood series) 11/25/2008 09/02/2008, 07/14/1997 DTaP,Tdap,and Td Vaccines (7 - Td or Tdap) 08/30/2017 08/31/2007, 08/22/2000, 02/04/1998, Additional history exists Influenza Vaccines (#1) 2024 03/30/2012, 03/26 COVID-19 Vaccine ( season) 2024 Hepatitis B Vaccines Completed 05/06/1997, 1996, 1996 HIB Vaccines Completed 11/23/1997, 07/1996, 1996, Additional history exists IPV Vaccines Completed 08/22/2000, 07/1996, 1996, Additional history exists MMR Vaccines Completed 08/11/2002, 11/28/1997 Meningococcal Vaccine Aged Out 08/31/2007 No zackery edmundo eligible based on patient's age to complete this topic HPV Vaccines Completed 01/02/2009, 08/12, 08/31/2007 Hepatitis A Vaccines Aged Out No long er eligible based on patient's age to complete this topic Men B Vaccine Aged Out No longer elig ible based on patient's age to complete this topic Pneumococcal Vaccine Aged Out No long er eligible based on patient's age to complete this topic Procedures * Due to [place] [employer] law, this organization might not be sharing sensitive test results. Procedure Name Priority Date/Time Associated Diagnosis Comments CHLAMYDIA AND GONORRHEA, AMPLIFIED Routine 10/28/2010 2:05 PM EDT from Last 3 Months or Most Recently Relevant to Health Maintenance Results * Due to [place] [employer] Content law, this organization might not be sharing sensitive test results. * Chlamydia and Gonorrhoea, Amplified (10/28/2010 2:05 PM EDT) URINE CHLAMYDIA AMP PROBE NEGATIVE [facility] Comment: NO CHLAMYDIA TRACHOMATIS RNA DETECTED IN THIS PATIENT'S SAMPLE. ? (REFERENCE RANGE/NORMAL VALUE: NOT DETECTED) URINE GC AMP PROBE NEGATIVE [facility] Comment: NO NEISSERIA GONORRHOEAE RNA DETECTED IN THIS PATIENT'S SAMPLE. ? (REFERENCE RANGE/NORMAL VALUE: NOT DETECTED) ? NOTE: THIS TEST USES STORAGE GARAGE ATTENDANT MEDIATED AMPLIFICATION METHOD TO DETECT rRNA FROM C.TRACHOMATIS AND N.GONORRHOEAE. A NEGATIVE RESULT DOES NOT PRECLUDE INFECTION WITH C.TRACHOMATIS OR N.GONORRHOEAE BECAUSE RESULTS ARE DEPENDENT ON ADEQUATE SPECIMEN COLLECTION, ABSENCE OF INHIBITORS, AND SUFFICIENT rRNA TO BE DETECTED. THE APTIMA COMBO2 ASSAY IS NOT INTENDED FOR THE EVALUATION OF SUSPECTED SEXUAL ABUSE OR FOR OTHER MEDICO LEGAL INDICATIONS. IS TRUE FOR ALL NON CULTURE METHODS, A POSITIVE SPECIMEN OBTAINED FROM A PATIENT AFTER THERAPEUTIC TREATMENT CANNOT BE INTERPRETED INDICATING THE PRESENCE OF VIABLE C.TRACHOMATIS OR N.GONORRHOEAE. THERAPEUTIC FAILURE OR SUCCESS CANNOT BE DETERMINED WITH THE APTIMA COMBO2 ASSAY SINCE NUCLEIC ACID MAY PERSIST FOLLOWING APPROPRIATE ANTIMICROBIAL THERAPY. A NEGATIVE URINE RESULT FOR A PATIENT WHO IS CLINICALLY SUSPECTED OF HAVING A CHLAMYDIAL OR GONOCOCCAL INFECTION DOES NOT RULE OUT THE PRESENCE OF C.TRACHOMATIS OR N.GONORRHOEAE IN THE UROGENITAL TRACT. TESTING OF AN ENDOCERVICAL(FEMALE) OR URETHRAL(MALE) SPECIMEN IS RECOMMENDED IF THERE IS HIGH CLINICAL SUSPICION OF INFECTION. PRESERVCYT LIQUID PAP AND URINE SAMPLING ARE NOT DESIGNED TO REPLACE CERVICAL EXAMS AND ENDOCERVICAL SAMPLES FOR DIAGNOSIS OF FEMALE UROGENITAL INFECTIONS. PATIENTS MAY HAVE CERVICITIS, URETHRITIS, URINARY TRACT INFECTIONS, OR VAGINAL INFECTIONS DUE TO OTHER CAUSES OR CONCURRENT INFECTIONS WITH OTHER AGENTS. 10/28/2010 2:05 PM EDT Narrative [facility] - 10/28/2010 2:05 PM EDT URINE CHLAMYDIA GC AMP PROBE us Ashwini Marcus MD LAB MICROBIOLOGY - GENERAL ORDER JEROMY Final Result [facility] [address] [place] [address], from Last 3 Months or Most Recently Relevant to Health Maintenance
--- OUTSIDE RECORDS SUMMARY | 2024-10-17 13:18 | XMS_ITS | Encounter Summary ---
Author Organization [employer] Address [address] [place] [address] Care Team Providers Care Resource Development Manager Name Role Phone Viviana Sandhu Primary Care Provider [phone] Reason for Visit * Reason Comments Med Refill Encounter Details Date Type Department Care Team ([facility] Contact Info) Description 04/22/2024 Refill [facility] [address] [place], [place] [phone] Viviana Sandhu FNP [address] [place] [address] Mild persistent asthma without complication Social History Tobacco Use Types Packs/Day Years [...] Description 01/23/2025 11:30 AM EDT Office Visit [facility] [address] [place] [address] Viviana Sandhu FNP [address] [place] [address] documented as of this encounter Visit Diagnoses Diagnosis Mild persistent asthma without complication documented in this encounter Additional Health Concerns Assessment Noted Time PHQ-9 Depression Total Score: 1 02/29/20 24 10:08 AM EDT documented as of this encounter Care Teams Resource Development Manager Relationship Specialty Start Date End Date Viviana Sandhu FNP [address] [place] [address] PCP - General Family Medicine 05/18/22 documented as of this encounter
--- OUTSIDE RECORDS SUMMARY | 2024-10-17 13:18 | XMS_ITS | Encounter Summary ---
Author Organization [employer] Address [address] [place] [address] Care Team Providers Care Cable Splicer Apprentice Name Role Phone Viviana Sandhu Primary Care Provider [phone] Reason for Visit * Reason Onset Date Comments Chart Prep 10/16/2024 Encounter Details Date Type Department Care Team ([facility] st Contact Info) Description 10/16/2024 Telephone [facility] [address] [place], [place] [phone] Viviana Sandhu FNP [address] [place] [address] Chart Prep Social History Tobacco Use Types Packs/Day Years [...] encounter Miscellaneous Notes * Telephone Encounter - Iliana Butler [place] - 10/16/2024 8:12 PM EDT Chart Prep Labs: not done Images: done Referrals: complete Vaccines due: Covid Screenings: LMP Overdue care gaps: Disability screen documented in this encounter Plan of Treatment Upcoming Encounters Date Type Department Care Team (Late st Contact Info) Description 01/23/2025 11:30 AM EDT Office Visit [facility] [address] [place] [address] Viviana Sandhu FNP [address] [place] [address] documented as of this encounter Visit Diagnoses Not on filedocumented in this encounter Additional Health Concerns Assessment Noted Time PHQ-9 Depression Total Score: 1 02/29/20 24 10:08 AM EDT documented as of this encounter Care Teams Cable Splicer Apprentice Relationship Specialty Start Date End Date Viviana Sandhu FNP [address] [place] [address] PCP - General Family Medicine 05/18/22 documented as of this encounter
[2024-10-17 13:35] LABS: MANUAL DIFF FLAG NO
[2024-10-17 13:56] LABS: Basophils Percent Auto 0.5 % (0-2); Eosinophils Absolute Auto 0.1 X10*3/uL (0.0-0.4); Eosinophils Percent Auto 0.9 % (0-4); Hematocrit 38.1 % (37.0-47.0); Hemoglobin 12.4 g/dl (12.0-16.0); Imm Gran Abs Auto 0.03 X10*3/uL (0.00-0.03); Imm Gran Pct Auto 0.4 % (0.0-0.4); Lymphocytes Absolute Auto 1.6 X10*3/uL (1.2-4.9); Lymphocytes Percent Auto 18.1 % (20-40); Mean Corpuscular HGB Conc 32.5 g/dl (31.0-35.0); Mean Corpuscular Hemoglobin 27.9 pg (27.0-33.0); Mean Corpuscular Volume 85.6 fL (80.0-98.0); Monocytes Absolute Auto 0.5 X10*3/uL (0.1-1.2); Neutrophils Absolute Auto 6.4 x10*3/uL (2.0-8.3); Neutrophils Percent Auto 74.1 % (45-73); Platelet Count 297 X10*3/uL (160-400); Red Blood Count 4.45 X10*6/uL (4.20-5.50); Red Cell Distribution Width 15.4 % (11.0-16.0); White Blood Count 8.6 X10*3/uL (4.8-10.8)
[2024-10-17 14:12] LABS: Cholesterol 163 mg/dL (<200); HDL Cholesterol 41 mg/dL (>40); Iron 102 mcg/dL (30-160); LDL Cholesterol Calculated 107 mg/dL (<100); Magnesium 2.1 mg/dL (1.6-2.6); Percent Iron Saturation 36 % (15-50); Total Iron Binding Capacity 282 mcg/dL (228-428); Triglycerides 75 mg/dL (<150); Unsaturated Iron Binding 180 ug/dL
[2024-10-17 14:28] LABS: Ferritin 25 ng/mL (10-122)
== END 2024-10-17 12:03 | disposition home or self-care (01) ==
LOC: HO.HHCL 12:02
PROVIDERS: Visit Provider Registered Nurse
DX: M79.661 Pain in right lower leg (principal); D50.9 Iron deficiency anemia, unspecified; Z00.00 Encounter for general adult medical examination without abnormal findings
CPT/HCPCS: 36415; 80061; 82728; 83540; 83735; 85025

== ENCOUNTER 2024-11-23 10:20 | Outpatient (AMB) | payer MEDICAID, SELFPAY ==
--- NOTE | 2024-11-23 10:28 | MHC.OFFVIS ---
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 She expresses when she ambulates she feels heat on her calf and pain. She says her B/L calves have an exacerbation of pain with ambulation of stairs. Patient has tried physical therapy with no improvement, says it made her pain worse. Denies numbness and tingling. Tylenol and ibuprofen have not offered her relief. 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 She expresses when she ambulates she feels heat on her calf and pain. She says her B/L calves have an exacerbation of pain with ambulation of stairs. Patient has tried physical therapy with no improvement, says it made her pain worse. Denies numbness and tingling. Tylenol and ibuprofen have not offered her relief. [facility] Medical History Anemia Anxiety and depression Asthma Chronic back pain Hematuria of unknown etiology Hyperthyroidism Migraines UTI (urinary tract infection) Surgical History History of kidney surgery Social History (Updated 11/23/24 @ 10:41 by GUSTAVO Abdul) Household Members Other:: Mother Are you a primary clinical care leader to a significant other at home: No Do you presently have visiting nurse or other home services: No Alcohol intake: never Patient Tobacco Use Status: Never used Tobacco Current occupational status: disabled Review of Systems Const All systems reviewed & are unremarkable except as noted in HPI and below Physical Exam Vital Signs: BMI result Body Mass Index 32.9 Extrem Other: Patient's bilateral lower legs normal to inspection No erythema, ecchymosis, edema noted No lacerations, abrasions, open areas No evidence of infection Patient reports no tenderness to palpation of the bilateral lower legs Full and intact range of motion of the bilateral knees and ankles Some discomfort in the ankle with passive inversion bilaterally Distal sensation intact Capillary refill brisk Assessment & Plan Assessment & Plan (1) Tendinitis of both ankles: Code(s): M77.51 - Other enthesopathy of right foot and ankle; M77.52 - Other enthesopathy of left foot and ankle Category: Medical Plan 1. Tendinitis of the bilateral ankles Ongoing for approximately 2 years Patient is educated about this condition Patient is educated about the typical treatment course At this time, patient is educated on conservative pain management measures, such as rest, ice, elevation Patient is educated that avoiding over activity with the lower extremities is going to be rojas to allowing this to heal Patient is amenable to this plan Follow-up as needed Coding Level of Care Code New Pt Level 3 (60395) Diagnoses Tendinitis of both ankles M77.51; M77.52
[2024-11-23 10:33] VITALS: BMI 32.9
--- OUTSIDE RECORDS SUMMARY | 2024-11-23 11:18 | XMS_ITS | Encounter Summary ---
Author Organization [facility] Address [address] [place] [address] Phone Care Team Providers Care Soup Mixer Name Role Phone Heydi Haywood MD Primary Care Provider [phone] Encounter Details Date Type Department Care Team (Late st Contact Info) Description 06/03/2011 Documentation [facility] Family Medicine [address] [place] [address] Family Medicine, Physician [address] [place], [place] [phone] Social History Tobacco Use Types Packs/Day Years [...] on filedocumented in this encounter Care Teams Soup Mixer Relationship Specialty Start Date End Date Heydi Haywood MD [address] [place] [address] BRYNN Crum [address] PCP - General 01/21/17 07/28/22 documented as of this encounter
== END 2024-11-23 11:06 | disposition home or self-care (01) ==
LOC: HO.HOS 10:20
PROVIDERS: PCP Registered Nurse
DX: M77.51 Other enthesopathy of right foot and ankle (principal); M77.52 Other enthesopathy of left foot and ankle
CPT/HCPCS: 99203

== ENCOUNTER → 2024-11-23 10:20 | Outpatient (BNVA) | payer MEDICAID, SELFPAY | PROVIDERS: PCP Registered Nurse | DX: M79.661 Pain in right lower leg (principal); M77.51 Other enthesopathy of right foot and ankle; M77.52 Other enthesopathy of left foot and ankle | CPT/HCPCS: 99212 ==

== ENCOUNTER 2025-02-26 15:45 | Outpatient (REF) | payer MEDICAID, SELFPAY ==
--- OUTSIDE RECORDS SUMMARY | 2025-02-26 15:15 | XMS_ITS | Encounter Summary ---
Author Organization [employer] Address [address] [address] 7 [place] [address] Care Team Providers Care Managed Care Director Name Role Phone DeeViviana garner DIGITAL MARKETING SPECIALIST Primary Care Provider Reason for Visit * Reason Comments CHW - Office Visit Encounter Details Date Type Department Care Team ([facility] st Contact Info) Description 02/26/2025 3:15 PM EDT Office Visit [facility] [address] [place] [address] Luma Miller CNM [address] [place] [address] Family planning counseling (Primary Dx); Screening examination for venereal disease; Furuncle of trunk Social History Tobacco Use Types Packs/Day Years Used Date Smoking Tobacco: Never Passive Smoke Exposure: Never Smokeless Tobacco: Never Tobacco Cessation:Counseling Given: [...] Q2 Not on file 02/29/2024 Comments No Intention Date Recorded No desire to become (finding) 0 02/26/2025 Sex and Gender Information Value Date Recorded Sex Assigned at Female 04/12/2022 10:22 AM EDT Legal Sex Female 10:22 AM EDT Gender Identity Female 04/12/2022 10:22 AM EDT Sexual Orientation Straight 04/12/2022 10 :22 AM EDT documented as of this encounter Last Filed Vital Signs Vital Sign Reading Time Taken Comments Blood Pressure 122/80 02/26/2025 3:11 PM EDT Pulse 90 02/26/2025 3:11 PM EDT Temperature 37 C (98.6 F) 02/26/2025 3:11 PM EDT Respiratory Rate 14 02/26/2025 3:11 PM EDT Oxygen Saturation 99% 02/26/2025 3:11 PM EDT Inhaled Oxygen Concentration - - Weight 79.6 kg (175 lb 6.4 oz) 02/26/2025 3:11 P M EDT Height - - Body Mass Index 33.14 01/23/2025 11:41 AM EDT documented in this encounter Progress Notes * Luma Miller CNM - 02/26/2025 3:15 PM EDT Subjective Patient ID: Viviana Quintana is a 29 y.o. female who presents for control followup Here with daughter Manuela. Pap NIL 01/2024. Treated for chlamydia 11/2023, retest negative. Gonorrhea/Chlamydia, HIV, syphilis and Hep C neg 02/2024. Slynd rx'd 11/2023. History of JOSSELIN, normal hemoglobin/hematocrit and iron studies 10/2024. Normal TSH 02/2024. Taking Slynd as directed, no missed/late pills. Denies ACHES. Would like to discuss other options. 1 AMAB partner x 1y, no safety concerns. Would like urine STI testing and serum labs today. Notes occasional lumps on inner thighs and breasts. One on right breast today. No other breast symptoms. Asks about status of Nurtec rx. [place] faxed last month, and she reports there was additional documentation that PCP needed to sign off on. Review of Systems Eyes: Negative for visual disturbance. Respiratory: Negative for shortness of breath. Cardiovascular: Negative for chest pain and leg swelling. Skin: Negative for color change. Neurological: Negative for headaches. Objective BP 122/80 (BP Location: Left arm, Patient Position: Sitting, BP Cuff Size: Adult) Pulse 90 Temp98.6 ??F (37 ??C) (Oral) Resp 14 Wt 175 lb 6.4 oz (79.6 kg) LMP 01/21/2025 SpO2 99% BMI 33.14 kg/m?? Physical Exam Constitutional: Appearance: Normal appearance. Skin: Comments: Small < 1cm resolving furuncle on right breast, no exudate or streaking. Neurological: Mental Status: She is alert. Psychiatric: Mood and Affect: Mood normal. Behavior: Behavior normal. Assessment/Plan Diagnoses and all orders for this visit: Family planning counseling Previously used Nexplanon, didn't like unpredictable bleeding. Discussed progestin IUD or injectionas options. Reviewed side effects, pros and cons. She would like to continue with oral contraceptive pill for now. Rx renewed, knows she can call any time if she wants to discuss options again. Screening examination for venereal disease - Chlamydia/N. Gonorrhoeae, PCR, Urine - Syphilis Screen; Future - HIV-1/2 Antigen and Antibodies, Fourth Generation, with Reflexes; Future - Trichomonas RNA (Urine/Vaginal) Urine and serum labs sent. Will contact with results. Furuncle of trunk Resolving. Avoid picking/squeezing. Try hot compresses for next week. If these become recurrent, orworsen, come to [facility]IC or followup with PCP. Other orders - Drospirenone (Slynd) 4 MG tablet; Take 1 tablet by mouth Once per day. documented in this encounter Plan of Treatment Upcoming Encounters Date Type Department Care Team (Late st Contact Info) Description 05/01/2025 9:45 AM EST Office Visit [facility] [address] [place] [address] Viviana Sandhu FNP [address] [place] [address] Scheduled Orders Name Type Priority Associated Diagnoses Orde r Schedule Chlamydia/N. Gonorrhoeae, PCR, Urine Lab Routine Screening examination for venereal disease Ordered: 02/26/2025 Syphilis Screen Lab Routine Screening examination for venereal disease Expected: 02/26/2025 (Approximate), Expires: 02/26/2026 HIV-1/2 Antigen and Antibodies, Fourth Generation, with Reflexes Lab Routine Screening examination for venereal disease Expected: 02/26/2025 (Approximate), Expires: 02/26/2026 Trichomonas RNA (Urine/Vaginal) Lab Routine Screening examination for venereal disease Ordered: 02/26/2025 documented as of this encounter Visit Diagnoses Diagnosis Family planning counseling- Primary Other general counseling and advice for contraceptive management Screening examination for venereal disease Furuncle of trunk Carbuncle and furuncle of trunk documented in this encounter Additional Health Concerns Assessment Noted Time PHQ-9 Depression Total Score: 2 10/18/19 25 11:16 AM EDT documented as of this encounter Care Teams Managed Care Director Relationship Specialty Start Date End Date Viviana Sandhu FNP [address] [place] [address] PCP - General Family Medicine 05/18/22 documented as of this encounter
[2025-02-26 17:39] LABS: MANUAL DIFF FLAG NO
[2025-02-26 17:44] LABS: Hematocrit 35.7 % (37.0-47.0); Hemoglobin 12.0 g/dl (12.0-16.0); Imm Gran Abs Auto 0.04 X10*3/uL (0.00-0.03); Imm Gran Pct Auto 0.4 % (0.0-0.4); Lymphocytes Absolute Auto 1.9 X10*3/uL (1.2-4.9); Mean Corpuscular HGB Conc 33.6 g/dl (31.0-35.0); Mean Corpuscular Hemoglobin 28.6 pg (27.0-33.0); Mean Corpuscular Volume 85.2 fL (80.0-98.0); NRBC Abs Auto 0.000 X10*3/uL (0.0-0.012); NRBC Pct Auto 0.0 /100WBC (0.0-0.2); Platelet Count 306 X10*3/uL (160-400); Red Blood Count 4.19 X10*6/uL (4.20-5.50); White Blood Count 9.6 X10*3/uL (4.8-10.8)
[2025-02-26 18:10] LABS: Iron 45 mcg/dL (30-160); Percent Iron Saturation 16 % (15-50); Total Iron Binding Capacity 288 mcg/dL (228-428); Unsaturated Iron Binding 243 ug/dL
[2025-02-26 18:25] LABS: Ferritin 23 ng/mL (10-122)
--- OUTSIDE RECORDS SUMMARY | 2025-02-26 18:56 | XMS_ITS | Encounter Summary ---
Author Organization [employer] Address [address] [facility] [address] [place] [address] Care Team Providers Care Shirt Bander Name Role Phone Phoebe Viviana WEB UI DEVELOPER Primary Care Provider [phone] Reason for Visit * Reason Onset Date Comments chart prep 02/25/2025 Encounter Details Date Type Department Care Team ([facility] st Contact Info) Description 02/25/2025 Telephone [facility] [address] [place] [address] Luma Miller CNM [address] [place], [place] [phone] chart prep Social History Tobacco Use Types Packs/Day Years Used Date Smoking Tobacco: Never Passive Smoke Exposure: Never Smokeless Tobacco: Never Alcohol Use Standard [...] encounter Miscellaneous Notes * Telephone Encounter - Loida Elizalde [place] - 02/25/2025 10:27 AM EDT Chart Prep Labs: not applicable Images: not applicable Referrals: not applicable Vaccines due: Covid and Flu Screenings: not applicable Overdue care gaps: Not applicable documented in this encounter Plan of Treatment Upcoming Encounters Date Type Department Care Team (Late st Contact Info) Description 05/01/2025 9:45 AM EST Office Visit [facility] [address] [place] [address] Viviana Sandhu FNP [address] [place] [address] documented as of this encounter Visit Diagnoses Not on filedocumented in this encounter Additional Health Concerns Assessment Noted Time PHQ-9 Depression Total Score: 2 10/18/19 25 11:16 AM EDT documented as of this encounter Care Teams Shirt Bander Relationship Specialty Start Date End Date Viviana Sandhu FNP [address] [place] [address] PCP - General Family Medicine 05/18/22 documented as of this encounter
--- OUTSIDE RECORDS SUMMARY | 2025-02-26 18:56 | XMS_ITS | Clinical Summary ---
Author Organization [facility] Address [address] [place] [address] Phone Care Team Providers Care Vineyard Tender Name Role Phone Unavailable Primary Care Provider [...] 76 11/16/2011 12:00 AM EDT Temperature 36.7 C (98 F) 03/30/2012 12:00 AM EDT Respiratory Rate - [...] 02/04/1998, Additional history exists Influenza Vaccines (#1) 2025 03/30/2012, 03/26 COVID-19 Vaccine ( season) 2025 Hepatitis B Vaccines Completed 05/06/1997, 1996, 1996 [...] complete this topic Procedures * Due to [place] [employer] law, this organization might not be sharing sensitive test results. Procedure Name Priority Date/Time Associated Diagnosis Comments CHLAMYDIA AND GONORRHEA, AMPLIFIED Routine 10/28/2010 2:05 PM EDT from Last 3 Months or Most Recently Relevant to Health Maintenance Results * Due to [place] [employer] law, this organization might not be sharing sensitive test results. * Chlamydia and Gonorrhoea, Amplified (10/28/2010 2:05 PM EDT) Pathologist [facility] URINE CHLAMYDIA AMP PROBE NEGATIVE [facility] Comment: NO CHLAMYDIA TRACHOMATIS RNA DETECTED IN THIS PATIENT'S SAMPLE. (REFERENCE RANGE/NORMAL VALUE: NOT DETECTED) URINE GC AMP PROBE NEGATIVE [facility] Comment: NO NEISSERIA GONORRHOEAE RNA DETECTED IN THIS PATIENT'S SAMPLE. (REFERENCE RANGE/NORMAL VALUE: NOT DETECTED) NOTE: THIS TEST USES STABLE CLEANER MEDIATED AMPLIFICATION METHOD TO DETECT rRNA FROM [...] OTHER AGENTS. 10/28/2010 2:05 PM EDT Narrative [facility] - 10/28/2010 2:05 PM EDT URINE CHLAMYDIA GC AMP PROBE us Ashwini Marcus MD LAB MICROBIOLOGY - GENERAL ORDER JEROMY Final Result [facility] [address] [place] [address], from Last 3 Months or Most Recently Relevant to Health Maintenance
--- OUTSIDE RECORDS SUMMARY | 2025-02-26 18:56 | XMS_ITS | Encounter Summary ---
Author Organization [employer] Address [address] [place] [address] Care Team Providers Care Summer Nanny Name Role Phone Viviana Sandhu SPECIAL EVENTS ASSISTANT Primary Care Provider [phone] Encounter Details Date Type Department Care Team (Latest Contact Info) Description 02/26/2025 Travel Social History Tobacco Use Types Packs/Day [...] Description 05/01/2025 9:45 AM EST Office Visit [facility] [address] [place] [address] Viviana Sandhu FNP [address] [place] [address] documented as of this encounter Visit Diagnoses Not on filedocumented in this encounter Additional Health Concerns Assessment Noted Time PHQ-9 Depression Total Score: 2 10/18/19 25 11:16 AM EDT documented as of this encounter Care Teams Summer Nanny Relationship Specialty Start Date End Date Viviana Sandhu FNP [address] [place] [address] PCP - General Family Medicine 05/18/22 documented as of this encounter
--- OUTSIDE RECORDS SUMMARY | 2025-02-26 18:56 | XMS_ITS | Encounter Summary ---
Author Organization [employer] Address [address] [facility] 7 [place] [address] Care Team Providers Care Skilled Nursing Case Manager Name Role Phone Viviana Sandhu Primary Care Provider [phone] Reason for Visit * Reason Onset Date Comments Results 03/20/2024 Encounter Details Date Type Department Care Team ([facility] Contact Info) Description 03/20/2024 Telephone [facility] [address] [place], [place] [phone] Viviana Sandhu FNP [address] [place] [address] Results Social History Tobacco Use Types Packs/Day [...] status on Xray results. Contact pt at [phone] * Telephone Encounter - Moni Willis - 03/20/2024 1:54 PM EDT TC from pt requesting call back regarding Results. Type of results: US kidney Date when done: [place] [facility] [place] in [place] encounter Plan of Treatment Upcoming Encounters Date Type Department Care Team (Late st Contact Info) Description 05/01/2025 9:45 AM EST Office Visit [facility] [address] [place] [address] Viviana Sandhu FNP [address] [place] [address] documented as of this encounter Visit Diagnoses Not on filedocumented in this encounter Additional Health Concerns Assessment Noted Time PHQ-9 Depression Total Score: 1 02/29/20 24 10:08 AM EDT documented as of this encounter Care Teams Skilled Nursing Case Manager Relationship Specialty Start Date End Date Viviana Sandhu FNP [address] [place] [address] PCP - General Family Medicine 05/18/22 documented as of this encounter
--- OUTSIDE RECORDS SUMMARY | 2025-02-26 18:56 | XMS_ITS | Encounter Summary ---
Author Organization [employer] Address [address] [facility] [address] 7 [place] [address] Care Team Providers Care Chemical Reclamation Equipment Operator Name Role Phone Viviana Sandhu Primary Care Provider [phone] Reason for Visit * Reason Comments Med Refill Encounter Details Date Type Department Care Team ([facility] st Contact Info) Description 02/18/2025 Refill [facility] [address] [place] [address] Viviana Sandhu FNP [address] [place] [address] DUB (dysfunctional uterine bleeding) Social History Tobacco Use Types Packs/Day Years [...] your housing situation today? I have ekaterina oscar 02/29/[address] you li [...] Description 05/01/2025 9:45 AM EST Office Visit [facility] [address] [place] [address] Viviana Sandhu FNP [address] [place] [address] documented as of this encounter Visit Diagnoses Diagnosis DUB (dysfunctional uterine bleeding) Other disorder of menstruation and other abnormal bleeding from female genital tract documented in this encounter Additional Health Concerns Assessment Noted Time PHQ-9 Depression Total Score: 2 10/18/19 25 11:16 AM EDT documented as of this encounter Care Teams Chemical Reclamation Equipment Operator Relationship Specialty Start Date End Date Viviana Sandhu FNP [address] [place] [address] PCP - General Family Medicine 05/18/22 documented as of this encounter
--- OUTSIDE RECORDS SUMMARY | 2025-02-26 18:56 | XMS_ITS | Encounter Summary ---
Author Organization [facility] Address [address] [place] [phone] Phone Care Team Providers Care Special Client Bus Driver Name Role Phone Heydi Haywood MD Primary Care Provider [phone] Encounter Details Date Type Department Care Team (Late st Contact Info) Description 06/03/2011 [place] [facility] [place] [address] [place] [address] Family Medicine, Physician [address] [place], [place] [phone] Social History Tobacco Use Types Packs/Day Years [...] on filedocumented in this encounter Care Teams Special Client Bus Driver Relationship Specialty Start Date End Date Heydi Haywood MD [address] [place] [address] BRYNN Crum [id number] PCP - General 01/21/17 07/28/22 documented as of this encounter
--- OUTSIDE RECORDS SUMMARY | 2025-02-26 18:56 | XMS_ITS | Encounter Summary ---
Author Organization [employer] Address [address] [facility] [address] [place] [address] Care Team Providers Care Telecom Assistant Name Role Phone Viviana Sandhu Primary Care Provider [phone] Encounter Details Date Type Department Care Team ([facility] st Contact Info) Description 03/05/2024 Orders Only [facility] & PEDS [address] [place], [place] [phone] Viviana Sandhu FNP [address] [place], [place] [phone] Iron deficiency anemia, unspecified iron deficiency anemia [...] Description 05/01/2025 9:45 AM EST Office Visit [facility] [address] [place] [address] Viviana Sandhu, IMCU NURSE [address] [place] [address] Scheduled Orders Name Type Priority Associated Diagnoses Orde r Schedule Ferritin Lab Routine Iron deficiency anemia, unspecified iron deficiency anemia type Expected: 03/05/2024, Expires: 03/05/2025 documented as of this encounter Procedures Procedure Name Priority Date/Time Associated Diagnosis Comments FERRITIN Routine 02/26/2025 3:49 PM EDT Iron deficiency anemia, unspecified iron deficiency anemia type CBC WITH AUTO DIFFERENTIAL Routine 10/17/2024 12:04 PM EDT Iron deficiency anemia, unspecified iron deficiency anemia type IRON AND TOTAL IRON BINDING CAPACITY Routine 10/17/2024 12:04 PM EDT Iron deficiency anemia, unspecified iron deficiency anemia type US RENAL BI Routine 03/13/2024 8:54 AM EDT documented in this encounter Results * Ferritin (02/26/2025 3:49 PM EDT) Pathologist [facility] Ferritin 23 10 - 122 ng/mL [facility] 02/26/2025 3:49 PM EDT 02/26/2025 5:33 PM EDT Viviana Sandhu IMCU NURSE LAB BLOOD ORDERABLES Final Res ult Performing Organization Address [facility] Co de Phone Number [facility] [address] [place] [phone] * Iron And Total Iron Binding Capacity (10/17/2024 12:04 PM EDT) [facility] Iron 102 30 - 160 mcg/dL [facility] Total Iron Binding Capacity 282 228 - 428 mcg/dL [facility] Percent Iron Saturation 36 15 - 50 % [facility] Unsaturated Iron Binding 180 ug/dL [facility] Blood Venous blood specimen / Unknown 10/17/2024 12:04 PM EDT 10/17/2024 1:32 PM EDT Viviana Sandhu IMCU NURSE LAB BLOOD ORDERABLES Final Res ult Performing Organization Address [facility] de Phone Number [facility] [address] [place] [phone] * (ABNORMAL) CBC auto differential (10/17/2024 12:04 PM EDT) Pathologist [facility] White Blood Count 8.6 4.8 - 10.8 X10*3/uL [facility] Red Blood Count 4.45 4.20 - 5.50 X10*6/uL [facility] Hemoglobin 12.4 12.0 - 16.0 g/dl [facility] Hematocrit 38.1 37.0 - 47.0 % [facility] Mean Corpuscular Volume 85.6 80.0 - 98.0 fL [facility] Mean Corpuscular Hemoglobin 27.9 27.0 - 33.0 pg [facility] Mean Corpuscular HGB Conc 32.5 31.0 - 35.0 g/dl [facility] Red Cell Distribution Width 15.4 11.0 - 16.0 % [facility] Platelet Count 297 160 - 400 X10*3/uL [facility] Mean Platelet Volume 10.0 9.4 - 12.3 fL [facility] Neutrophils Percent Auto 74.1(H) 45 - 73 % [facility] Imm Gran Pct Auto 0.4 0.0 - 0.4 % [facility] Lymphocytes Percent Auto 18.1(L) 20 - 40 % [facility] Monocytes Percent Auto 6.0 2 - 11 % [facility] Eosinophils Percent Auto 0.9 0 - 4 % [facility] Basophils Percent Auto 0.5 0 - 2 % [facility] NRBC Pct Auto 0.0 0.0 - 0.2 /100WBC [facility] Neutrophils Absolute Auto 6.4 2.0 - 8.3 x10*3/uL [facility] Imm Gran Abs Auto 0.03 0.00 - 0.03 X10*3/uL [facility] Lymphocytes Absolute Auto 1.6 1.2 - 4.9 X10*3/uL [facility] Monocytes Absolute Auto 0.5 0.1 - 1.2 X10*3/uL [facility] Eosinophils Absolute Auto 0.1 0.0 - 0.4 X10*3/uL [facility] Basophils Absolute Auto 0.0 0.0 - 0.2 X10*3/uL [facility] NRBC Abs Auto 0.000 0.0 - 0.012 X10*3/uL [facility] Blood Venous blood specimen / Unknown 10/17/2024 12:04 PM EDT 10/17/2024 1:32 PM EDT us Viviana Sandhu IMCU NURSE LAB BLOOD ORDERABLES Final Res ult [facility] [address] [place], [place] [phone] * US RENAL BI (03/13/2024 8:54 AM EDT) Anatomical Region Laterality Modality Abdomen Ultrasound 03/13/2024 8:54 AM EDT Narrative 03/30/2024 1:39 PM EDT [address] [address] Ultrasound Report Signed Patient: Viviana Quintana MR#: [id number] 1 : 1995 Acct:[id number] Age/Sex: 28 / F ADM Date: 03/13/24 Loc: HO.US Attending Dr: Viviana WILLIS Ordering Physician: Viviana Sandhu Date of Service: 03/13/24 Procedure(s): US renal BI Accession Number(s): [id number] cc: Ashley Wren ; Viviana Sandhu EXAMINATION: [...] 03/30/24 1336 DD/ 0854 TD/TT: 03/13/24 0914 Firmware Developer: SS Procedure Note Donotuseinterpreter, Image - 03/30/2024 [place] [id number] Ultrasound Report Signed Patient: Courtney Quintana#: [id number] 1 : 1995Acct:[id number] Age/Sex: 28 FADM Date: 03/13/24 Loc: HO.US Attending Dr: Viviana WILLIS Ordering Physician: Viviana Sandhu Date of Service: 03/13/24 Procedure(s): US renal BI Accession Number(s): [id number] cc: Ashley Wren ; Viviana Sandhu EXAMINATION: [...] 03/30/24 1336 DD/ 0854 TD/TT: 03/13/24 0914 Firmware Developer: SS us Viviana WILLIS IMG US PROCEDURES Final Result documented in this encounter Visit Diagnoses Diagnosis Iron deficiency anemia, unspecified iron deficiency anemia type- Primary documented in this encounter Additional Health Concerns Assessment Noted Time PHQ-9 Depression Total Score: 1 02/29/20 24 10:08 AM EDT documented as of this encounter Care Teams Telecom Assistant Relationship Specialty Start Date End Date Viviana Sandhu FNP [address] [place] [phone] PCP - General Family Medicine 05/18/22 documented as of this encounter
--- OUTSIDE RECORDS SUMMARY | 2025-02-26 18:56 | XMS_ITS | Encounter Summary ---
Author Organization [facility] Address [address] [place] [phone] Phone Care Team Providers Care Registered Nurse Ambulatory Name Role Phone Heydi Haywood MD Primary Care Provider [phone] Encounter Details Date Type Department Care Team (Late st Contact Info) Description 04/18/2012 Documentation [facility] [place] Medicine [address] [place] [address] Family Medicine, Physician [address] [place], [place] [phone] Social History Tobacco Use Types Packs/Day Years [...] on filedocumented in this encounter Care Teams Registered Nurse Ambulatory Relationship Specialty Start Date End Date Heydi Haywood MD [address] [place] [address] BRYNN Crum [address] PCP - General 01/21/17 07/28/22 documented as of this encounter
--- OUTSIDE RECORDS SUMMARY | 2025-02-26 18:56 | XMS_ITS | Clinical Summary ---
Author Organization [employer] Address [address] [facility] [address] [place] [address] Care Team Providers Care Lab Animal Technician Name Role Phone Viviana Sandhu Primary Care Provider [phone] Allergies No known active allergies Medications clindamycin (Cleocin T) 1 % lotionIndications :Skin lesion of breast APPLY TOPICALLY UNDER BREAST IN THE MORNING AND AT BEDTIME NEEDED FOR LESIONS 60 mL 2 024 Active multivitamin () 27-0.8 MG tabletIndications :Routine health maintenance TAKE 1 TABLET BY MOUTH EVERY DAY WITH FOOD 90 tablet 2 024 Active Mometasone Furoate (Asmanex HFA) 100 MCG/ACT aerosolIndication s:Mild persistent asthma without complication INHALE 2 PUFFS BY MOUTH TWICE DAILY FOR ASTHMA PREVENTION 13 g 3 024 Active albuterol (Ventolin HFA) 108 (90 Base) MCG/ACT inhalerIndication s:Mild persistent asthma without complication Inhale 2 puffs Every 4-6 hours as needed for wheezing or shortness of breath. 18 g 11 024 Active albuterol (2.5 MG/3ML) 0.083% nebulizer solutionIndicatio ns:Mild persistent asthma without complication USE 3 ML VIA NEBULIZER EVERY 4-6 HOURS NEEDED FOR WHEEZING OR SHORTNESS OF BREATH 75 mL 1 024 Active DULoxetine (Cymbalta) [address] capsuleIndication s:Chronic midline low back pain without sciatica TAKE 1 CAPSULE BY MOUTH EVERY DAY FOR CHRONIC BACK PAIN 90 capsule 1 024 Active lidocaine (Lidoderm) 5 % patchIndications: Chronic midline low back pain without sciatica Apply 1 patch topically if needed each day (PAIN). Remove & discard patch within 12 hours or as directed by MD. 30 patch 2 Active magnesium oxide (Mag-Ox) 400 (240 Mg) MG tabletIndications :Migraine without status migrainosus, not intractable, unspecified migraine type Take 1 tablet (400 mg) by mouth at bedtime. 90 tablet 3 024 Active levothyroxine (Synthroid, Levoxyl) 100 MCG tabletIndications :Other specified hypothyroidism TAKE 1 TABLET(100 MCG) BY MOUTH BEFORE BREAKFAST 90 tablet 3 024 Active amitriptyline (Elavil) 25 MG tabletIndications :Other migraine without status migrainosus, not intractable TAKE 1 TABLET(25 MG) BY MOUTH AT BEDTIME 90 tablet 3 025 Active Diclofenac Sodium 1 % gelIndications:Ri ght calf pain Apply thin layer by topical route (quantity as directed on package insert) to affected area of pain 3 times daily as needed. 50 g 3 025 Active acetaminophen (Tylenol 8 Hour) 650 MG ER tablet TAKE 1 TABLET(650 MG) BY MOUTH EVERY 8 HOURS NEEDED FOR PAIN OR FEVER 100 tablet 3 Active ibuprofen 200 MG tabletIndications :Tendinitis of both ankles,Migraine without status migrainosus, not intractable, unspecified migraine type Take 2-3 tablets (400-600 mg) by mouth every 8 (eight) hours if needed (pain or fever). 100 tablet 2 025 2025 Active Rimegepant Sulfate 75 MG tablet dispersibleIndica tions:Migraine without status migrainosus, not intractable, unspecified migraine type Take 1 tablet (75 mg) by mouth if needed each day (migraine). 30 tablet 2 025 Active Drospirenone (Slynd) 4 MG tablet Take 1 tablet by mouth Once per day. 28 tablet 11 025 Active Slynd 4 MG tablet TAKE 1 TABLET BY MOUTH DAILY 28 tablet 3 025 2024 Discontinued(R eorder (will not trigger notification to Pharmacy)) ibuprofen 800 MG tabletIndications :DUB (dysfunctional uterine bleeding) Take 1 tablet (800 mg) by mouth 3 times daily for 7 days. 21 tablet 025 2024 Active Problems Problem Noted Date Diagnosed Date Tendinitis of both ankles 01/23/2025 Assessment & Plan (01/23/2025 4:16 PM EDT): Diagnosed 11/2024 at [facility]. Recommended conservative management. Declines interest in physical therapy at this time. Discussed consideration of k-tape or other options available at home Healthcare maintenance 02/29/2024 Overview (02/29/2024): Last PE: 02/29/24 Pap: 01/26/24 NILM (next due Jan 2027) OPH: [facility] - last visit 08/31/23, glasses rx Migraine 06/14/2022 Assessment & Plan (01/23/2025 4:20 PM EDT): -Frequency: ~3/month -Continue with amitriptyline 25mg and magnesium 400mg at bedtime -Start [facility] Previous medications: - zolmitriptan - rizatriptan Assessment & Plan (10/26/2024 9:25 AM EDT): -Well controlled -Continue with amitriptyline 25mg and magnesium 400mg at bedtime -Start rizatriptan PRN. 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 Benavidez. 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 3. 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 Reviewed med safety and SE. Anemia 03/23/2017 Assessment & Plan (10/26/2024 9:27 AM EDT): -Encourage iron-rich foods -Repeat CBC and iron studies Assessment & Plan (03/01/2024 1:39 PM EDT): [...] Encounters Date Type Department Care Team Description 02/26/2025 3:15 PM EDT Office Visit [address] [address] Luma Miller CNM Family planning counseling (Primary Dx); Screening examination for venereal disease; Furuncle of trunk 02/26/2025 Travel 02/25/[address] [address] Luma Miller CNM chart prep 02/18/[address] [address] Viviana Sandhu FNP DUB (dysfunctional uterine bleeding) 02/11/2025 Travel 01/25/2025 Telephone [facility] [address] [place] [address] Viviana Sandhu FNP Prior Authorization 01/23/2025 11:30 AM EDT Office Visit [address] [address] Viviana Sandhu FNP DUB (dysfunctional uterine bleeding) (Primary Dx); Tendinitis of both ankles; Migraine without status migrainosus, not intractable, unspecified migraine type 01/23/2025 Travel 01/22/[address] [address] Viviana Sandhu FNP CHART PREP 12/17/[address] [address] Viviana Sandhu FNP Appointment Request 12/13/2024 Refill [facility] [address] [place], [place] [phone] Angela Luma, MADAN 12/13/2024 Refill [facility] [address] [place] [address] Viviana Sandhu FNP Migraine without status migrainosus, not intractable, unspecified migraine type 12/03/2024 Telephone [facility] [address] [place], [place] [phone] Viviana Sandhu FNP Med Refill from Last 3 Months Immunizations Immunization Administration Dates Next Due DTaP, 5 pertussis [...] MCV4P ACYW-135 08/31/2007 Meningococcal MPSV4 08/31/2007 Novel [id number], all formulations 04/16/2009 OPV, Trivalent 02/12/1997,1996,1996 Pfizer [...] oz) 02/26/2025 3:11 P M EDT Height 154.9 cm (5' 1 ) 01/23/2025 11:41 AM EDT Body Mass Index 33.14 01/23/2025 11:41 AM EDT Plan of Treatment Upcoming Encounters Date Type Department Care Team (Late st Contact Info) Description 05/01/2025 9:45 AM EST Office Visit [facility] [address] [place] [address] Viviana Sandhu, HEAD NURSE [address], [place] [phone] Health Maintenance Due Date Last Done Comments COVID-19 Vaccine ( season) 2025 03/11/2023, 04/05/2022, 05/22/2021, Additional history exists Influenza Vaccine (#1) 2025 , 03/07/2023, 03/01/2022, Additional history exists Depression Screening 10/17/2025 10/17/2024, 10/18/19 Disability Screening 10/17/2025 10/17/2024 SDOH Screening 10/17/2025 10/17/2024 Alcohol/Substance Use Screening 01/23/2026 01/23/2025 Family Planning (PISQ) 02/26/2026 02/26/2025 Tobacco Screening 02/26/2026 02/26/2025 DTaP/Tdap/Td Vaccines (8 - Td or Tdap) [...] topic HPV Vaccines Completed 01/02/2009, 08/12, 08/31/2007 Pneumococcal Vaccine: Pediatrics (0 to 5 Years) and At-Risk Patients (6 to 49) Years Completed 02/29/2024 HIV Screening Completed 03/01/2024, 02/08/2024 Hepatitis C Screening Completed 03/01/2024, 024 Hepatitis A Vaccines Aged Out No long er eligible based on patient's age to complete this topic Meningococcal B Vaccine Aged Out No l onger eligible based on patient's age to complete [...] anemia type CBC WITH AUTO DIFFERENTIAL Routine 02/26/2025 3:49 PM EDT Iron deficiency anemia, unspecified iron deficiency anemia type IRON AND TOTAL IRON BINDING CAPACITY Routine 02/26/2025 3:49 PM EDT Iron deficiency anemia, unspecified iron deficiency anemia type HEPATITIS C VIRAL RNA, QUANTITATIVE, REAL-TIME PCR Routine 03/01/2024 9:03 AM EDT Healthcare maintenance HIV 1/2 ANTIGEN/ANTIBODY, FOURTH GENERATION W/RFL Routine 03/01/2024 9:03 AM EDT Healthcare maintenance THINPREP IMAGING SYSTEM PAP Routine 01/26/2024 11:06 AM EDT Unsatisfactory cervical cytology smear from Last 3 Months or Most Recently Relevant to Health Maintenance Results * (ABNORMAL) CBC auto differential (02/26/2025 3:49 PM EDT) White Blood Count 9.6 4.8 - 10.8 X10*3/uL [facility] Red Blood Count 4.19(L) 4.20 - 5.50 X10*6/uL [facility] Hemoglobin 12.0 12.0 - 16.0 g/dl [facility] Hematocrit 35.7(L) 37.0 - 47.0 % [facility] Mean Corpuscular Volume 85.2 80.0 - 98.0 fL [facility] Mean Corpuscular Hemoglobin 28.6 27.0 - 33.0 pg [facility] Mean Corpuscular HGB Conc 33.6 31.0 - 35.0 g/dl [facility] Red Cell Distribution Width 14.6 11.0 - 16.0 % [facility] Platelet Count 306 160 - 400 X10*3/uL [facility] Mean Platelet Volume 10.0 9.4 - 12.3 fL [facility] Neutrophils Percent Auto 69.6 45 - 73 % [facility] Imm Gran Pct Auto 0.4 0.0 - 0.4 % [facility] Lymphocytes Percent Auto 20.2 20 - 40 % [facility] Monocytes Percent Auto 7.2 2 - 11 % [facility] Eosinophils Percent Auto 2.1 0 - 4 % [facility] Basophils Percent Auto 0.5 0 - 2 % [facility] NRBC Pct Auto 0.0 0.0 - 0.2 /100WBC [facility] Neutrophils Absolute Auto 6.7 2.0 - 8.3 x10*3/uL [facility] Imm Gran Abs Auto 0.04(H) 0.00 - 0.03 X10*3/uL [facility] Lymphocytes Absolute Auto 1.9 1.2 - 4.9 X10*3/uL [facility] Monocytes Absolute Auto 0.7 0.1 - 1.2 X10*3/uL [facility] Eosinophils Absolute Auto 0.2 0.0 - 0.4 X10*3/uL [facility] Basophils Absolute Auto 0.1 0.0 - 0.2 X10*3/uL [facility] NRBC Abs Auto 0.000 0.0 - 0.012 X10*3/uL [facility] Blood Venous blood specimen / Unknown 02/26/2025 3:49 PM EDT 02/26/2025 5:33 PM EDT us Viviana Sandhu HEAD NURSE LAB BLOOD ORDERABLES Final Res ult Performing Organization Address [facility] Co de Phone Number [facility] [address] [place] [phone] * Iron And Total Iron Binding Capacity (02/26/2025 3:49 PM EDT) Iron 45 30 - 160 mcg/dL [facility] Total Iron Binding Capacity 288 228 - 428 mcg/dL [facility] Percent Iron Saturation 16 15 - 50 % [facility] Unsaturated Iron Binding 243 ug/dL [facility] Blood Venous blood specimen / Unknown 02/26/2025 3:49 PM EDT 02/26/2025 5:33 PM EDT us Viviana Sandhu HEAD NURSE LAB BLOOD ORDERABLES Final Res ult Performing Organization Address City/[facility]/ZIP Co de Phone Number [facility] [address] [place] [address] [phone] * Ferritin (02/26/2025 3:49 PM EDT) Ferritin 23 10 - 122 ng/mL [facility] 02/26/2025 3:49 PM EDT 02/26/2025 5:33 PM EDT us Viviana Sandhu [facility] LAB BLOOD ORDERABLES Final Res ult Performing Organization Address [facility]/ZIP Co de Phone Number [facility] [address] [place] [phone] * Hepatitis C Viral RNA, Quantitative, Real-Time PCR (03/01/2024 9:03 AM EDT) [facility] Hepatitis C Viral Load <15 NOT DETECTED NOT DETECTED IU/mL [facility] HCV Log PCR <1.18 NOT DETECTED NOT DETECTED Log IU/mL [facility] Comment:For additional infor matdenny, please refer tohttp://education.Pirate Pay/faq/DAX63c8(This link is being provided for informational/educational purposes only.)THIS TEST WAS PERFORMED AT:[facility] [place] [id number] DHILLON MD Blood 03/01/2024 9:03 AM EDT 03/01/2024 11:23 [address] [facility] LAB BLOOD ORDERABLES Final Res ult Performing Organization Address [facility] Co de Phone Number [facility] [address] [place] [phone] * HIV-1/2 Antigen and Antibodies, Fourth Generation, with Reflexes (03/01/2024 9:03 AM EDT) [facility] HIV AB/AG Nonreactive Nonreactive [facility] Comment:HIV-1 p24 Ag and/or HIV-1/HIV-2 Ab not detected.A test result that is nonreactive does not exclude thepossibility of exposure to or infection with HIV-1 and/orHIV-2. Nonreactive results in this assay for individualswith prior exposure to HIV-1 and/or HIV-2 may be due toantigen and antibody levels that are below the limit ofdetection of this assay.The [employer]Altacor HIV Ag/Ab Combo assay result andsupplemental assay results should be interpreted inconjunction with the patient's clinical presentation,history and other laboratory results. If the results areinconsistent with clinical evidence, additional testing issuggested to confirm the result. Blood Venous blood specimen / Unknown 03/01/2024 9:03 AM EDT 03/01/2024 11:23 AM EDT us Viviana Sandhu HEAD NURSE LAB BLOOD ORDERABLES Final Res ult [facility] [address] [place] [address] [phone] * Pap Smear (01/26/2024 11:06 AM EDT) SOURCE: SEE NOTE [facility] Comment:None given Report Status: [facility] Clinical Information: SEE NOTE [facility] Comment:None given LMP: SEE NOTE [facility] Comment:NONE GIVEN Prev. PAP: SEE NOTE [facility] Comment:NONE GIVEN Prev. BX: SEE NOTE [facility] Comment:NONE GIVEN Statement Of Adequacy: SEE NOTE [facility] Comment:Satisfactory for clarence luation.Endocervical/transformation zone componentpresent. General Categorization: [facility] Interpretation/Result: SEE NOTE [facility] Comment:Cytology Results: Ne gative for intraepitheliallesion or malignancy. Cytology Comment SEE NOTE [facility] Comment:This Pap test has be en evaluated with computerassisted technology. Casino Investigator: SEE NOTE [facility] Comment:GSG, CT(ASCP)CT scre ening location: [address] [address] Review Casino Investigator: [facility] Pathologist [facility] PAP Infection [facility] See Note SEE [facility] Comment:EXPLANATORY NOTE:The Pap is a screening test for cervical cancer. It isnot a diagnostic test and is subject to false negativeand false positive results. It is most reliable when asatisfactory sample, regularly obtained, is submittedwith relevant clinical findings and history, and whenthe Pap result is evaluated along with historic andcurrent clinical information.THIS TEST WAS PERFORMED AT:[facility] [place] [id number] DHILLON MD Pap Vial Vaginal structure / Unknown 01/26/2024 11:06 AM EDT 01/26/2024 5:44 PM EDT Narrative [facility] - 01/31/2024 11:58 AM EDT SEE RESULTS IN EMR us Luma [facility] LAB PATHOLOGY ORDERABLES Final Result [facility] [address] [place] [phone] from Last 3 Months or Most Recently Relevant to [place] [address] Care Teams Lab Animal Technician Relationship Specialty Start Date End Date Phalen, Viviana, HEAD NURSE [address] [place] [address] PCP - General Family Medicine 05/18/22
--- OUTSIDE RECORDS SUMMARY | 2025-02-26 18:56 | XMS_ITS | Encounter Summary ---
Author Organization [employer] Address [address] [facility] [address] [place] [address] Care Team Providers Care Gauge And Weigh Machine Adjuster Name Role Phone Viviana Sandhu Primary Care Provider [phone] Reason for Visit * Reason Comments Med Refill Encounter Details Date Type Department Care Team ([facility] Contact Info) Description 04/22/2024 Refill [facility] [address] [place], [place] [phone] Viviana Sandhu FNP [address] [place] [address] Mild persistent asthma without complication Social History [...] Description 05/01/2025 9:45 AM EST Office Visit [facility] [address] [place] [address] Viviana Sandhu FNP [address] [place] [address] documented as of this encounter Visit Diagnoses Diagnosis Mild persistent asthma without complication documented in this encounter Additional Health Concerns Assessment Noted Time PHQ-9 Depression Total Score: 1 02/29/20 24 10:08 AM EDT documented as of this encounter Care Teams Gauge And Weigh Machine Adjuster Relationship Specialty Start Date End Date Viviana Sandhu FNP [address] [place] [address] PCP - General Family Medicine 05/18/22 documented as of this encounter
--- OUTSIDE RECORDS SUMMARY | 2025-02-26 18:56 | XMS_ITS | Encounter Summary ---
Author Organization [facility] Address [address] [place] [address] Phone Care Team Providers Care Ordnance Technician Name Role Phone Heydi Haywood MD Primary Care Provider [phone] Encounter Details Date Type Department Care Team (Late st Contact Info) Description 01/27/2017 Conversion Encounter [facility] [address] [place] [address] Social History Tobacco Use Types Packs/Day Years [...] on filedocumented in this encounter Care Teams Ordnance Technician Relationship Specialty Start Date End Date Heydi Haywood MD [address] [place] [address] PCP - General 01/21/17 07/28/22 documented as of this encounter
[2025-02-28 05:02] LABS: Syphilis Screen Nonreactive (Nonreactive)
[2025-02-28 05:08] LABS: HIV Num 1 0.05 S/CO (0.00-0.99)
== END 2025-02-26 15:46 | disposition home or self-care (01) ==
LOC: HO.HHCL 15:45
PROVIDERS: PCP Registered Nurse; Visit Provider Advanced Practice Midwife
DX: Z11.3 Encounter for screening for infections with a predominantly sexual mode of transmission (principal); D50.9 Iron deficiency anemia, unspecified
CPT/HCPCS: 36415; 82728; 83540; 85025; 86780; 87389

== ENCOUNTER 2025-02-27 18:41 | Outpatient (REF) | payer MEDICAID, SELFPAY ==
--- OUTSIDE RECORDS SUMMARY | 2025-02-26 15:15 | XMS_ITS | Encounter Summary ---
Author Organization [employer] Address [address] [address] [facility] [address] [place] [address] Care Team Providers Care Attorney General Name Role Phone DeeMarshal garnerle NUT STEAMER Primary Care Provider [phone] Reason for Visit * Reason Comments CHW - Office Visit Encounter Details Date Type Department Care Team ([facility] st Contact Info) Description 02/26/2025 3:15 PM EDT Office Visit [facility] [address] [place] [address] Luma Miller CNM [address] [place] [address] Family planning counseling (Primary Dx); Screening examination [...] Description 05/01/2025 9:45 AM EST Office Visit [facility] [address] [place] [address] Viviana Sandhu FNP [address] [place] [address] Scheduled Orders Name Type Priority Associated Diagnoses [...] documented as of this encounter Care Teams Attorney General Relationship Specialty Start Date End Date Viviana Sandhu FNP [address] [place] [address] PCP - General Family Medicine 05/18/22 documented as of this encounter
--- OUTSIDE RECORDS SUMMARY | 2025-02-27 19:32 | XMS_ITS | Encounter Summary ---
Author Organization [employer] Address [address] [place] [address] Care Team Providers Care Learning Solutions Specialist Name Role Phone Viviana Sandhu Primary Care Provider [phone] Reason for Visit * Reason Comments Med Refill Encounter Details Date Type Department Care Team ([facility] st Contact Info) Description 02/18/2025 Refill [facility] [address] [place] [address] Viviana Sandhu FNP [address] [place] [address] DUB (dysfunctional uterine bleeding) Social History Tobacco [...] Description 05/01/2025 9:45 AM EST Office Visit [facility] [address] [place] [address] Viviana Sandhu FNP [address] [place] [address] documented as of this encounter Visit Diagnoses Diagnosis DUB (dysfunctional uterine bleeding) Other disorder of menstruation and other abnormal bleeding from female genital tract documented in this encounter Additional Health Concerns Assessment Noted Time PHQ-9 Depression Total Score: 2 10/18/19 25 11:16 AM EDT documented as of this encounter Care Teams Learning Solutions Specialist Relationship Specialty Start Date End Date Viviana Sandhu FNP [address] [place] [address] PCP - General Family Medicine 05/18/22 documented as of this encounter
--- OUTSIDE RECORDS SUMMARY | 2025-02-27 19:32 | XMS_ITS | Encounter Summary ---
Author Organization [employer] Address [address] [facility] [address] [place] [address] Care Team Providers Care Estate Manager Name Role Phone Phoebe Viviana GANG RIDER Primary Care Provider [phone] Reason for Visit * Reason Onset Date Comments chart prep 02/25/2025 Encounter Details Date Type Department Care Team ([facility] st Contact Info) Description 02/25/2025 Telephone [facility] [address] [place] [address] Luma Miller CNM [address] [place], [place] [phone] chart prep Social History Tobacco Use Types [...] Description 05/01/2025 9:45 AM EST Office Visit [facility] [address] [place] [address] Viviana Sandhu FNP [address] [place] [address] documented as of this encounter Visit Diagnoses Not on filedocumented in this encounter Additional Health Concerns Assessment Noted Time PHQ-9 Depression Total Score: 2 10/18/19 25 11:16 AM EDT documented as of this encounter Care Teams Estate Manager Relationship Specialty Start Date End Date Viviana Sandhu FNP [address] [place] [address] PCP - General Family Medicine 05/18/22 documented as of this encounter
--- OUTSIDE RECORDS SUMMARY | 2025-02-27 19:32 | XMS_ITS | Encounter Summary ---
Author Organization [employer] Address [address] [address] [facility] [address] [place] [address] Care Team Providers Care Clasp Machine Operator Name Role Phone Viviana Sandhu STORAGE BATTERY TESTER Primary Care Provider [phone] Encounter Details Date Type Department Care Team [...] Description 05/01/2025 9:45 AM EST Office Visit [facility] [address] [place] [address] Viviana Sandhu FNP [address] [place] [address] documented as of this encounter Visit Diagnoses Not on filedocumented in this encounter Additional Health Concerns Assessment Noted Time PHQ-9 Depression Total Score: 2 10/18/19 25 11:16 AM EDT documented as of this encounter Care Teams Clasp Machine Operator Relationship Specialty Start Date End Date Viviana Sandhu FNP [address] [place] [address] PCP - General Family Medicine 05/18/22 documented as of this encounter
--- OUTSIDE RECORDS SUMMARY | 2025-02-27 19:32 | XMS_ITS | Encounter Summary ---
Author Organization [facility] Address [address] [place] [phone] Phone Care Team Providers Care Work Station Support Specialist Name Role Phone Heydi Haywood MD Primary Care Provider [phone] Encounter Details Date Type Department Care Team (Late st Contact Info) Description 04/18/2012 Documentation [facility] Family Medicine [address] [place] [address] Family Medicine, Physician [address] [place], [place] [phone] Social History Tobacco Use Types Packs/Day Years [...] on filedocumented in this encounter Care Teams Work Station Support Specialist Relationship Specialty Start Date End Date Heydi Haywood MD [address] [place] [address] BRYNN Crum [address] PCP - General 01/21/17 07/28/22 documented as of this encounter
--- OUTSIDE RECORDS SUMMARY | 2025-02-27 19:32 | XMS_ITS | Encounter Summary ---
Author Organization [employer] Address [address] [facility] 7 [place] [address] Care Team Providers Care Marketing Ambassador Name Role Phone Viviana Sandhu Primary Care Provider [phone] Reason for Visit * Reason Onset Date Comments Results 03/20/2024 Encounter Details Date Type Department Care Team ([facility] Contact Info) Description 03/20/2024 Telephone [facility] MED & PEDS [address] [place], [place] [phone] Viviana Sandhu FNP [address] [place] [address] Results Social History Tobacco Use Types Packs/Day [...] Miscellaneous Notes * Telephone Encounter - Diana Ludn - 03/29/2024 11:04 AM EDT TC from pt mom requesting status on Xray results. Contact pt at [phone] * Telephone Encounter - Moni Willis - 03/20/2024 1:54 PM EDT TC from pt requesting call back regarding Results. Type of results: US kidney Date when done: in February Facility: [facility] [place] documented in this encounter Plan of Treatment Upcoming Encounters Date Type Department Care Team (Late st Contact Info) Description 05/01/2025 9:45 AM EST Office Visit [facility] MEDICINE [address] [place] [address] Viviana Sandhu FNP [address] [place] [address] documented as of this encounter Visit Diagnoses Not on filedocumented in this encounter Additional Health Concerns Assessment Noted Time PHQ-9 Depression Total Score: 1 02/29/20 24 10:08 AM EDT documented as of this encounter Care Teams Marketing Ambassador Relationship Specialty Start Date End Date Viviana Sandhu FNP [address] [place] [address] PCP - General Family Medicine 05/18/22 documented as of this encounter
--- OUTSIDE RECORDS SUMMARY | 2025-02-27 19:32 | XMS_ITS | Clinical Summary ---
Author Organization [employer] Address [address] [facility] 7t [place] [address] Care Team Providers Care Die Designer Apprentice Name Role Phone Viviana Sandhu Primary Care Provider [phone] Allergies No known active allergies Medications clindamycin [...] (01/23/2025 4:16 PM EDT): Diagnosed 11/2024 at [facility]. Recommended conservative management. Declines interest in physical therapy at this time. Discussed consideration of k-tape or other options available at home Healthcare maintenance 02/29/2024 Overview (02/29/2024): Last PE: 02/29/24 Pap: 01/26/24 NILM (next due Jan 2027) OPH: [facility] - last visit 08/31/23, glasses rx Migraine 06/14/2022 Assessment & Plan (01/23/2025 4:20 PM EDT): -Frequency: ~3/month -Continue with amitriptyline 25mg and magnesium 400mg at bedtime -Start [facility] Previous medications: - zolmitriptan - rizatriptan Assessment [...] Description 02/26/2025 3:15 PM EDT Office Visit [address] [address] Luma Miller CNM Family planning counseling (Primary Dx); Screening examination for venereal disease; Furuncle of trunk 02/26/2025 Travel 02/25/[address] [address] Luma Miller CNM chart prep 02/18/[address] [address] Viviana Sandhu FNP DUB (dysfunctional uterine bleeding) 02/11/2025 Travel 01/25/2025 Telephone [facility] MED & PEDS [address] [place] [address] Viviana Sandhu FNP Prior Authorization 01/23/2025 11:30 AM EDT Office Visit [address] [address] Viviana Sandhu FNP DUB (dysfunctional uterine bleeding) (Primary Dx); Tendinitis of both ankles; Migraine without status migrainosus, not intractable, unspecified migraine type 01/23/2025 Travel 01/22/[address] [address] Viviana Sandhu FNP CHART PREP 12/17/[address] [address] Viviana Sandhu FNP Appointment Request 12/13/2024 Refill [facility] MEDICINE [address] [place], [place] [phone] Angela Luma, MADAN 12/13/2024 Refill [facility] [address] [place] [address] Viviana Sandhu FNP Migraine without status migrainosus, not intractable, unspecified migraine type 12/03/2024 Telephone [facility] MEDICINE [address] [place], [place] [phone] Viviana Sandhu FNP Med Refill from Last [...] MCV4P ACYW-135 08/31/2007 Meningococcal MPSV4 08/31/2007 Novel [id number], all formulations 04/16/2009 OPV, Trivalent 02/12/1997,1996,1996 Pfizer [...] Description 05/01/2025 9:45 AM EST Office Visit [facility] MEDICINE [address] [place] [address] Viviana Sandhu, CANCER PROGRAM CONSULTANT [address] [place], [place] [phone] Health Maintenance Due Date Last Done Comments [...] Blood Count 9.6 4.8 - 10.8 X10*3/uL [facility] Red Blood Count 4.19(L) 4.20 - 5.50 X10*6/uL [facility] Hemoglobin 12.0 12.0 - 16.0 g/dl [facility] Hematocrit 35.7(L) 37.0 - 47.0 % [facility] Mean Corpuscular Volume 85.2 80.0 - 98.0 fL [facility] Mean Corpuscular Hemoglobin 28.6 27.0 - 33.0 pg [facility] Mean Corpuscular HGB Conc 33.6 31.0 - 35.0 g/dl [facility] Red Cell Distribution Width 14.6 11.0 - 16.0 % [facility] Platelet Count 306 160 - 400 X10*3/uL [facility] Mean Platelet Volume 10.0 9.4 - 12.3 fL [facility] Neutrophils Percent Auto 69.6 45 - 73 % [facility] Imm Gran Pct Auto 0.4 0.0 - 0.4 % [facility] Lymphocytes Percent Auto 20.2 20 - 40 % [facility] Monocytes Percent Auto 7.2 2 - 11 % [facility] Eosinophils Percent Auto 2.1 0 - 4 % [facility] Basophils Percent Auto 0.5 0 - 2 % [facility] NRBC Pct Auto 0.0 0.0 - 0.2 /100WBC [facility] Neutrophils Absolute Auto 6.7 2.0 - 8.3 x10*3/uL [facility] Imm Gran Abs Auto 0.04(H) 0.00 - 0.03 X10*3/uL [facility] Lymphocytes Absolute Auto 1.9 1.2 - 4.9 X10*3/uL [facility] Monocytes Absolute Auto 0.7 0.1 - 1.2 X10*3/uL [facility] Eosinophils Absolute Auto 0.2 0.0 - 0.4 X10*3/uL [facility] Basophils Absolute Auto 0.1 0.0 - 0.2 X10*3/uL [facility] NRBC Abs Auto 0.000 0.0 - 0.012 X10*3/uL [facility] Blood Venous blood specimen / Unknown 02/26/2025 3:49 PM EDT 02/26/2025 5:33 PM EDT us Viviana Sandhu CANCER PROGRAM CONSULTANT LAB BLOOD ORDERABLES Final Res ult Performing Organization Address [facility] Co de Phone Number [facility] [address] [place] [phone] * Iron And Total Iron Binding Capacity (02/26/2025 3:49 PM EDT) Iron 45 30 - 160 mcg/dL [facility] Total Iron Binding Capacity 288 228 - 428 mcg/dL [facility] Percent Iron Saturation 16 15 - 50 % [facility] Unsaturated Iron Binding 243 ug/dL [facility] Blood Venous blood specimen / Unknown 02/26/2025 3:49 PM EDT 02/26/2025 5:33 PM EDT us Viviana Sandhu CANCER PROGRAM CONSULTANT LAB BLOOD ORDERABLES Final Res ult Performing Organization Address City/[facility]/ZIP Co de Phone Number [facility] [address] [place] [address] [phone] * Ferritin (02/26/2025 3:49 PM EDT) Ferritin 23 10 - 122 ng/mL [facility] 02/26/2025 3:49 PM EDT 02/26/2025 5:33 PM EDT us Viviana Sandhu [facility] LAB BLOOD ORDERABLES Final Res ult Performing Organization Address [facility]/ZIP Co de Phone Number [facility] [address] [place] [phone] * Hepatitis C Viral RNA, Quantitative, Real-Time PCR (03/01/2024 9:03 AM EDT) [facility] Hepatitis C Viral Load <15 NOT DETECTED NOT DETECTED IU/mL [facility] HCV Log PCR <1.18 NOT DETECTED NOT DETECTED Log IU/mL [facility] Comment:For additional infor matdenny, please refer tohttp://education.[employer]/faq/GIN34d3(This link is being provided for informational/educational purposes only.)THIS TEST WAS PERFORMED AT:[employer] [place] [id number] DHILLON MD Blood 03/01/2024 9:03 AM EDT 03/01/2024 11:23 AM EDT Viviana Sandhu [facility] LAB BLOOD ORDERABLES Final Res ult Performing Organization Address [facility] Co de Phone Number [facility] [address] [place] [phone] * HIV-1/2 Antigen and Antibodies, Fourth Generation, with Reflexes (03/01/2024 9:03 AM EDT) [facility] HIV AB/AG Nonreactive Nonreactive [facility] Comment:HIV-1 p24 Ag and/or HIV-1/HIV-2 Ab not detected.A test result that is nonreactive does not exclude thepossibility of exposure to or infection with HIV-1 and/orHIV-2. Nonreactive results in this assay for individualswith prior exposure to HIV-1 and/or HIV-2 may be due toantigen and antibody levels that are below the limit ofdetection of this assay.The [employer] HIV Ag/Ab Combo assay result andsupplemental assay results should be interpreted inconjunction with the patient's clinical presentation,history and other laboratory results. If the results areinconsistent with clinical evidence, additional testing issuggested to confirm the result. Blood Venous blood specimen / Unknown 03/01/2024 9:03 AM EDT 03/01/2024 11:23 AM EDT us Viviana Sandhu CANCER PROGRAM CONSULTANT LAB BLOOD ORDERABLES Final Res ult [facility] [address] [place] [address] [phone] * Pap Smear (01/26/2024 11:06 AM EDT) SOURCE: SEE NOTE [facility] Comment:None given Report Status: [facility] Clinical Information: SEE NOTE [facility] Comment:None given LMP: SEE NOTE [facility] Comment:NONE GIVEN Prev. PAP: SEE NOTE [facility] Comment:NONE GIVEN Prev. BX: SEE NOTE [facility] Comment:NONE GIVEN Statement Of Adequacy: SEE NOTE [facility] Comment:Satisfactory for clarence luation.Endocervical/transformation zone componentpresent. General Categorization: [facility] Interpretation/Result: SEE NOTE [facility] Comment:Cytology Results: Ne gative for intraepitheliallesion or malignancy. Cytology Comment SEE NOTE [facility] Comment:This Pap test has be en evaluated with computerassisted technology. Service Vehicle Operator: SEE NOTE [facility] Comment:GSG, CT(ASCP)CT scre ening location: [address] [address] Review Service Vehicle Operator: [facility] Pathologist [facility] PAP Infection [facility] See Note SEE [facility] Comment:EXPLANATORY NOTE:The Pap is a screening test for cervical cancer. It isnot a diagnostic test and is subject to false negativeand false positive results. It is most reliable when asatisfactory sample, regularly obtained, is submittedwith relevant clinical findings and history, and whenthe Pap result is evaluated along with historic andcurrent clinical information.THIS TEST WAS PERFORMED AT:[employer] [place] [phone] DHILLON MD Pap Vial Vaginal structure / Unknown 01/26/2024 11:06 AM EDT 01/26/2024 5:44 PM EDT Narrative [facility] - 01/31/2024 11:58 AM EDT SEE RESULTS IN EMR us Luma LAGUERRE LAB PATHOLOGY ORDERABLES Final Result [facility] [address] [place] [phone] [phone] from Last 3 Months or Most Recently Relevant to [place] [address] Care Teams Die Designer Apprentice Relationship Specialty Start Date End Date Phalen, Viviana, CANCER PROGRAM CONSULTANT [address] [place] [address] PCP - General Family Medicine 05/18/22
--- OUTSIDE RECORDS SUMMARY | 2025-02-27 19:32 | XMS_ITS | Clinical Summary ---
Author Organization [facility] Address [address] [place] [phone] Phone Care Team Providers Care Real Estate Agency Licensee Name Role Phone Unavailable Primary Care Provider [...] complete this topic Procedures * Due to [place] Sharing[employer] law, this organization might not be sharing sensitive test results. Procedure Name Priority Date/Time Associated Diagnosis Comments CHLAMYDIA AND GONORRHEA, AMPLIFIED Routine 10/28/2010 2:05 PM EDT from Last 3 Months or Most Recently Relevant to Health Maintenance Results * Due to [place] [employer]aring[employer] law, this organization might not be sharing sensitive test results. * Chlamydia and Gonorrhoea, Amplified (10/28/2010 2:05 PM EDT) Pathologist [facility] URINE CHLAMYDIA AMP PROBE NEGATIVE [facility] Comment: NO CHLAMYDIA TRACHOMATIS RNA DETECTED IN THIS PATIENT'S SAMPLE. (REFERENCE RANGE/NORMAL VALUE: NOT DETECTED) URINE GC AMP PROBE NEGATIVE [facility] Comment: NO NEISSERIA GONORRHOEAE RNA DETECTED IN THIS PATIENT'S SAMPLE. (REFERENCE RANGE/NORMAL VALUE: NOT DETECTED) NOTE: THIS TEST USES COLOR BLENDER MEDIATED AMPLIFICATION METHOD TO DETECT rRNA FROM [...] OTHER AGENTS. 10/28/2010 2:05 PM EDT Narrative [facility] - 10/28/2010 2:05 PM EDT URINE CHLAMYDIA GC AMP PROBE us Ashwini Marcus MD LAB MICROBIOLOGY - GENERAL ORDER JEROMY Final Result [facility] [address] [place] [address], from Last 3 Months or Most Recently Relevant to Health Maintenance
--- OUTSIDE RECORDS SUMMARY | 2025-02-27 19:32 | XMS_ITS | Encounter Summary ---
Author Organization [facility] Address [address] [place] [phone] Phone Care Team Providers Care Production Generalist Name Role Phone Heydi Haywood MD Primary Care Provider [phone] Encounter Details Date Type Department Care Team (Late st Contact Info) Description 06/03/[address] [facility] Family Medicine [address] [place] [address] Family Medicine, Physician [address] [place], [place] [phone] Social History Tobacco Use Types Packs/Day Years [...] on filedocumented in this encounter Care Teams Production Generalist Relationship Specialty Start Date End Date Heydi Haywood MD [address] [place] [address] BRYNN Crum [phone] PCP - General 01/21/17 07/28/22 documented as of this encounter
--- OUTSIDE RECORDS SUMMARY | 2025-02-27 19:32 | XMS_ITS | Encounter Summary ---
Author Organization [employer] Address [address] [facility] [address] [place] [address] Care Team Providers Care Motorcycle Designer Name Role Phone Viviana Sandhu Primary Care Provider [phone] Encounter Details Date Type Department Care Team ([facility] st Contact Info) Description 03/05/2024 Orders Only [facility] MED & PEDS [address] [place], [place] [phone] Viviana Sandhu FNP [address] [place], [place] [phone] Iron deficiency anemia, unspecified iron deficiency anemia [...] Visit [facility] MEDICINE [address] [place] [address] Viviana Sandhu, SPECIAL EDUCATION BUS DRIVER [address] [place] [address] Scheduled Orders Name Type Priority Associated Diagnoses [...] * Ferritin (02/26/2025 3:49 PM EDT) Pathologist [facility] Ferritin 23 10 - 122 ng/mL [facility] 02/26/2025 3:49 PM EDT 02/26/2025 5:33 PM EDT Viviana Sandhu SPECIAL EDUCATION BUS DRIVER LAB BLOOD ORDERABLES Final Res ult Performing Organization Address [facility] Co de Phone Number [facility] [address] [place] [phone] * Iron And Total Iron Binding Capacity (10/17/2024 12:04 PM EDT) [facility] Iron 102 30 - 160 mcg/dL [facility] Total Iron Binding Capacity 282 228 - 428 mcg/dL [facility] Percent Iron Saturation 36 15 - 50 % [facility] Unsaturated Iron Binding 180 ug/dL [facility] Blood Venous blood specimen / Unknown 10/17/2024 12:04 PM EDT 10/17/2024 1:32 PM EDT Viviana Sandhu SPECIAL EDUCATION BUS DRIVER LAB BLOOD ORDERABLES Final Res ult Performing Organization Address [facility] de Phone Number [facility] [address] [place] [phone] * (ABNORMAL) CBC auto differential (10/17/2024 12:04 PM EDT) Pathologist [facility] White Blood Count 8.6 4.8 - 10.8 X10*3/uL [facility] Red Blood Count 4.45 4.20 - 5.50 X10*6/uL [facility] Hemoglobin 12.4 12.0 - 16.0 g/dl [facility] Hematocrit 38.1 37.0 - 47.0 % [facility] Mean Corpuscular Volume 85.6 80.0 - 98.0 fL [facility] Mean Corpuscular Hemoglobin 27.9 27.0 - 33.0 pg [facility] Mean Corpuscular HGB Conc 32.5 31.0 - 35.0 g/dl [facility] Red Cell Distribution Width 15.4 11.0 - 16.0 % [facility] Platelet Count 297 160 - 400 X10*3/uL [facility] Mean Platelet Volume 10.0 9.4 - 12.3 fL [facility] Neutrophils Percent Auto 74.1(H) 45 - 73 % [facility] Imm Gran Pct Auto 0.4 0.0 - 0.4 % [facility] Lymphocytes Percent Auto 18.1(L) 20 - 40 % [facility] Monocytes Percent Auto 6.0 2 - 11 % [facility] Eosinophils Percent Auto 0.9 0 - 4 % [facility] Basophils Percent Auto 0.5 0 - 2 % [facility] NRBC Pct Auto 0.0 0.0 - 0.2 /100WBC [facility] Neutrophils Absolute Auto 6.4 2.0 - 8.3 x10*3/uL [facility] Imm Gran Abs Auto 0.03 0.00 - 0.03 X10*3/uL [facility] Lymphocytes Absolute Auto 1.6 1.2 - 4.9 X10*3/uL [facility] Monocytes Absolute Auto 0.5 0.1 - 1.2 X10*3/uL [facility] Eosinophils Absolute Auto 0.1 0.0 - 0.4 X10*3/uL [facility] Basophils Absolute Auto 0.0 0.0 - 0.2 X10*3/uL [facility] NRBC Abs Auto 0.000 0.0 - 0.012 X10*3/uL [facility] Blood Venous blood specimen / Unknown 10/17/2024 12:04 PM EDT 10/17/2024 1:32 PM EDT us Viviana Sandhu SPECIAL EDUCATION BUS DRIVER LAB BLOOD ORDERABLES Final Res ult [facility] [address] [place], [place] [phone] * US RENAL BI (03/13/2024 8:54 AM EDT) Anatomical Region Laterality Modality Abdomen Ultrasound 03/13/2024 8:54 AM EDT Narrative 03/30/2024 1:39 PM EDT [address] [address] Ultrasound Report Signed Patient: Viviana Quintana MR#: [id number] 1 : 1995 Acct:[id number] Age/Sex: 28 / F ADM Date: 03/13/24 Loc: HO.US Attending Dr: Viviana WILLIS Ordering Physician: Viviana Sandhu Date of Service: 03/13/24 Procedure(s): US renal BI Accession Number(s): [id number] cc: Ashley Wren ; Viviana Sandhu EXAMINATION: [...] with a ureterocele. Electronically signed by: Se Cedlilo MD 03/30/2024 01:36 PM EDT RP Dictated By: Se Cedillo MD Signed By: <Electronically signed by Se Cedillo MD in OV> 03/30/24 1336 DD/ 0854 TD/TT: 03/13/24 0914 Knockout Worker: SS Procedure Note Donotuseinterpreter, Image - 03/30/2024 [place] [address] Ultrasound Report Signed Patient: Courtney Quintana#: [id number] 1 : 1995Acct:[id number] Age/Sex: 28 FADM Date: 03/13/24 Loc: HO.US Attending Dr: Viviana WILLIS Ordering Physician: Viviana Sandhu Date of Service: 03/13/24 Procedure(s): US renal BI Accession Number(s): [id number] cc: Ashley Wren ; Viviana Sandhu EXAMINATION: [...] 03/30/24 1336 DD/ 0854 TD/TT: 03/13/24 0914 Knockout Worker: SS us Viviana WILLIS IMG US PROCEDURES Final Result documented in this encounter Visit Diagnoses Diagnosis Iron deficiency anemia, unspecified iron deficiency anemia type- Primary documented in this encounter Additional Health Concerns Assessment Noted Time PHQ-9 Depression Total Score: 1 02/29/20 24 10:08 AM EDT documented as of this encounter Care Teams Motorcycle Designer Relationship Specialty Start Date End Date Viviana Sandhu FNP [address] [place] [phone] PCP - General Family Medicine 05/18/22 documented as of this encounter
--- OUTSIDE RECORDS SUMMARY | 2025-02-27 19:32 | XMS_ITS | Encounter Summary ---
Author Organization [employer] Address [address] [facility] 7t [place] [address] Care Team Providers Care District Manager Postal Service Name Role Phone Viviana Sandhu Primary Care Provider [phone] Reason for Visit * Reason Comments Med Refill Encounter Details Date Type Department Care Team ([facility] Contact Info) Description 04/22/2024 Refill [facility] MED & PEDS [address] [place], [place] [phone] Viviana Sandhu FNP [address] [place] [address] Mild persistent asthma without complication Social History [...] Description 05/01/2025 9:45 AM EST Office Visit [facility] MEDICINE [address] [place] [address] Viviana Sandhu FNP [address] [place] [address] documented as of this encounter Visit Diagnoses Diagnosis Mild persistent asthma without complication documented in this encounter Additional Health Concerns Assessment Noted Time PHQ-9 Depression Total Score: 1 02/29/20 24 10:08 AM EDT documented as of this encounter Care Teams District Manager Postal Service Relationship Specialty Start Date End Date Viviana Sandhu FNP [address] [place] [address] PCP - General Family Medicine 05/18/22 documented as of this encounter
--- OUTSIDE RECORDS SUMMARY | 2025-02-27 19:32 | XMS_ITS | Encounter Summary ---
Author Organization [facility] Address [address] [place] [address] Phone Care Team Providers Care Tassel Clipper Name Role Phone Heydi Haywood MD Primary Care Provider [phone] Encounter Details Date Type Department Care Team (Late st Contact Info) Description 01/27/2017 Conversion Encounter [facility] [address] [place] [address] Social History Tobacco Use Types Packs/Day Years [...] on filedocumented in this encounter Care Teams Tassel Clipper Relationship Specialty Start Date End Date Heydi Haywood MD [address] [place] [address] PCP - General 01/21/17 07/28/22 documented as of this encounter
[2025-02-28 10:02] LABS: CT PCR Urine NOT DETECTED (Not Detect.); NG PCR Urine NOT DETECTED (Not Detect.)
== END 2025-02-27 18:42 | disposition home or self-care (01) ==
LOC: HO.HHCLNP 18:41
PROVIDERS: Visit Provider Advanced Practice Midwife
DX: Z11.3 Encounter for screening for infections with a predominantly sexual mode of transmission (principal)
CPT/HCPCS: 87491; 87591; 87661

== ENCOUNTER 2025-05-01 09:52 | Outpatient (REF) | payer MEDICAID, SELFPAY ==
[2025-05-01 12:29] LABS: Alanine Aminotransferase 21 U/L (0-31); Albumin Level 4.3 g/dL (3.5-5.0); Alkaline Phosphatase 48 U/L (39-117); Anion Gap 9 (12-20); Aspartate Amino Transferase 19 U/L (5-31); Blood Urea Nitrogen 13 mg/dL (9-16); Calcium 9.1 mg/dL (8.4-10.2); Carbon Dioxide 24 mmol/L (22-29); Chloride 106 mmol/L (96-108); Cholesterol 132 mg/dL (<200); Estimated Glomerular Filt Rate > 60; HDL Cholesterol 38 mg/dL (>40); Potassium 4.4 mmol/L (3.3-5.1); Sodium 135 mmol/L (135-145); Total Protein 7.0 g/dL (6.5-8.0); Triglycerides 56 mg/dL (<150)
== END 2025-05-01 09:53 | disposition home or self-care (01) ==
LOC: HO.HHCL 09:52
PROVIDERS: PCP Registered Nurse; Visit Provider Registered Nurse
DX: Z00.00 Encounter for general adult medical examination without abnormal findings (principal)
CPT/HCPCS: 36415; 80053; 80061; 84443

== ENCOUNTER 2025-06-04 12:00 | Emergency (ER) | payer MEDICAID, SELFPAY ==
[2025-06-04] VITALS (9 sets, daily range): BP systolic 81–115; BP diastolic 28–80; PULSE 108–129; RESP 16–18; TEMP 36.8–37.5; O2SAT 98–100; BMI 32.3
--- NOTE | ~2025-06-04 | XR_ITS ---
EXAMINATION: XR LUMBOSACRAL SPINE CLINICAL INFORMATION: fall low back pain COMPARISON: January 23, 2022 TECHNIQUE: Three views of the lumbosacral spine. FINDINGS: There is 12 degrees dextroscoliosis There are 5 lumbar segments with vestigial ribs at L1. T11 demonstrates mild degenerative change with anterior osteophytes. Disc spaces are preserved. There is no listhesis. Vertebral body height is preserved. XR/XR lumbar spine 2-3V IMPRESSION: Mild dextroscoliosis. Electronically signed by: Wesly Rivera MD 06/04/2025 02:16 PM [facility]
--- NOTE | ~2025-06-04 | CT_ITS ---
EXAMINATION: CT HEAD WITHOUT CONTRAST CLINICAL INFORMATION: Syncope COMPARISON: None available. TECHNIQUE: Contiguous axial imaging was performed from the skull base to vertex without intravenous administration of contrast. This CT examination was performed using dose optimization techniques as appropriate, variously including the following: *Automated exposure control *Adjustment of mA and/or kV according to patient size (this includes techniques or standardized protocols for targeted exams where dose is matched to indication/reason for exam; i.e. extremities or head) *Use of iterative reconstruction technique FINDINGS: There is no acute ischemic change. There is no intracranial hemorrhage. There is no mass-effect or midline shift. Basal cisterns and ventricles are within normal limits for age/cerebral volume. Orbits are symmetrical and unremarkable. Paranasal sinuses and mastoid air cells are pneumatized. There are no bony abnormalities. CT/CT head/brain wo IV con IMPRESSION: No acute intracranial abnormality. Electronically signed by: Wesly Rivera MD 06/04/2025 02:32 PM [facility]
--- NOTE | 2025-06-04 12:19 | ECG_ITS ---
Test Reason : SYNCOPE Blood Pressure : */* mmHG Vent. Rate : 119 BPM Atrial Rate : 119 BPM P-R Int : 158 ms QRS Dur : 68 ms QT Int : 284 ms P-R-T Axes : 58 53 0 degrees QTcB Int : 399 ms Sinus tachycardia Nonspecific T wave abnormality Abnormal ECG When compared with ECG of 08-Mar-2016 14:29, Vent. rate has increased by 43 bpm Nonspecific T wave abnormality, worse in Inferior leads Nonspecific T wave abnormality now evident in Anterolateral leads Referred By: Generic ED Physician Electronically Signed By: SHELLY GANNON MD
[2025-06-04 12:38] LABS: Hematocrit 37.5 % (37.0-47.0); Hemoglobin 12.2 g/dl (12.0-16.0); Imm Gran Abs Auto 0.04 X10*3/uL (0.00-0.03); Imm Gran Pct Auto 0.3 % (0.0-0.4); Lymphocytes Absolute Auto 0.4 X10*3/uL (1.2-4.9); MANUAL DIFF FLAG SCAN; Mean Corpuscular HGB Conc 32.5 g/dl (31.0-35.0); Mean Corpuscular Hemoglobin 28.2 pg (27.0-33.0); Mean Corpuscular Volume 86.8 fL (80.0-98.0); NRBC Abs Auto 0.000 X10*3/uL (0.0-0.012); NRBC Pct Auto 0.0 /100WBC (0.0-0.2); Platelet Count 248 X10*3/uL (160-400); Red Blood Count 4.32 X10*6/uL (4.20-5.50); SCAN SMEAR FLAG 1; White Blood Count 11.5 X10*3/uL (4.8-10.8)
[2025-06-04 12:55] LABS: Anion Gap 12 (12-20); Blood Urea Nitrogen 14 mg/dL (9-16); Calcium 9.2 mg/dL (8.4-10.2); Carbon Dioxide 23 mmol/L (22-29); Chloride 106 mmol/L (96-108); Creatinine Clr Calc Pharmacy 98.6; Estimated Glomerular Filt Rate > 60; Potassium 3.6 mmol/L (3.3-5.1); Sodium 137 mmol/L (135-145)
[2025-06-04 13:05] LABS: Troponin-I High Sensitivity < 2.7 ng/L (<3.5-17.0)
[2025-06-04 13:14] LABS: Resp Syncy Virus RNA Qual PCR NEGATIVE (Negative); SARS COV2 PCR INHOUSE NEGATIVE (Negative)
--- NOTE | 2025-06-04 13:28 | ED_ITS ---
HPI - Syncope General Chief Complaint: Syncope Stated Complaint: syncope,hit head +Loc, neck/back pain Time Seen by Provider: 06/04/25 12:51 Source: patient and EMS Mode of arrival: EMS Limitations: no limitations History of Present Illness ED Provider: TSERING BOB PA-C HPI narrative: 29 year old female presents to the ED today via EMS for evaluation s/p syncopal episode [employer]. Patient states she was standing in the [employer] checkout line, picking up her daughter's prescriptions when she had a syncopal episode witnessed by [employer] staff. Denies any preceding symptoms. Per staff, patient syncopized and struck the back of her head on the shopping cart. She was only down for a few minutes. No reported postictal state. No tongue bite, no bladder incontinence. No thinners. At present, reports low back pain, headache, and chills. Patient denies history of hypertension, hypotension, diabetes, seizures. She is only on levothyroxine for her hypothyroid. Reports recent blood work which showed normal thyroid levels. She is currently on an oral control. No recent travel or long car rides. No chest pain, SOB, palpitations. Her daughter tested positive for influenza and strep this morning. Related Data Home Medications ?Medication ?Instructions ?Recorded ?Confirmed acetaminophen 650 mg 650 mg PO Q8H PRN Pain 02/2010/19/22 tablet,extended release (Mapap Arthritis Pain) albuterol sulfate 2.5 mg/3 mL 2.5 mg inhalation Q6H ME N asthma 02/20/21 10/19/22 (0.083 %) solution for nebulization ferrous sulfate 325 mg (65 mg 325 mg PO Q OTHER DAY an emia 02/20/21 10/19/22 iron) tablet (FeroSul) fluticasone propionate 110 2 puff PO BID asthma 10/19/22 mcg/actuation HFA aerosol inhaler (Flovent HFA) albuterol sulfate 90 mcg/actuation 2 puff PO QID 05/2210/19/22 aerosol inhaler (ProAir HFA) amitriptyline 25 mg tablet 25 mg PO BEDTIME 08/17/21 0 10/19/22 levothyroxine 100 mcg tablet 100 mcg PO DAILY 10/19/22 10/19/22 drospirenone (contraceptive) 4 mg 1 tab PO DAILY 11/23 (28) tablet (Slynd) rizatriptan 10 mg tablet mg PO DAILY 11/23/24 Previous Rx's ?Medication ?Instructions ?Recorded cefdinir 300 mg capsule 300 mg PO Q12H 7 days #14 ca ps 01/23/22 Allergies Allergy/AdvReac Type Severity Reaction Status Date / Time No Known Allergies Allergy Verified 06/04/25 12:15 Review of Systems 2 Review of Systems: Yes all other systems are reviewed and are negative [facility] Past Medical History Attestation statement: The following information was validated with the patient. Source: old records reviewed and nursing notes reviewed Medical History Speech articulation disorder Anxiety and depression Anemia Asthma Chronic back pain Hematuria of unknown etiology UTI (urinary tract infection) Migraines Hyperthyroidism Surgical History History of kidney surgery Family History Family History Mother Hypothyroidism Heart murmur Hyperlipidemia Father Diabetes mellitus Social History Social History Household Members Other:: Mother Are you a primary occasional caregiver to a significant other at home: No Do you presently have visiting nurse or other home services: No Alcohol intake: never Patient Tobacco Use Status: Never used Tobacco Current occupational status: disabled Physical Exam 2 Vital Signs: Vital Signs: Last Vital Signs Temp 98.2 F 06/04/25 16:58 Pulse 117 H 06/04/25 16:58 Resp 16 06/04/25 16:58 BP 110/70 06/04/25 16:58 Pulse Ox 99 06/04/25 16:58 O2 Del Method Room Air 06/04/25 16:58 BMI result Body Mass Index 32.3 Tachycardic, low-grade temp at 99.5? F, otherwise WNL. General: Awake, alert, does not appear to be postictal Skin: Warm, dry, intact. No rashes or lesions. Head: Normocephalic, atraumatic. EENT: Hearing is intact b/l. Conjunctiva clear. PERRLA. EOM intact. Moist mucous membranes.?no tongue bite. Neck: No midline C-spine tenderness, full ROM intact to C-spine Cardiac: Chest wall symmetric. RRR Lungs: Normal respiratory effort without accessory muscle use. CTA bilaterally. Abdomen: Soft, non-tender, non-distended. No rebound tenderness or guarding. Positive BS x4. Back: No midline spinous or paraspinal tenderness. No step off deformity. Ext: Upper and lower extremities atraumatic, without tenderness, deformity, swelling or erythema. Full ROM throughout Neuro: AOx3. Normal speech. NIH 0. Strength 5/5 intact throughout. No saddle anesthesia. Sensation intact to light touch. NV intact distally. Ambulating with steady gait. Psych: Appropriate mood and affect. Responds appropriately to questions. Course Course Course Narrative: CBC showing slight leukocytosis to 11.5 with left shift. No anemia, H and H stable. Chemistry without acute electrolyte abnormality requiring intervention. No SHAWN. Random glucose 119, no anion gap. Troponin undetectable. Beta quant undetectable. Negative COVID, flu, RSV. ddimer undetectable - PE unlikely. CT head unremarkable. X-ray lumbar spine unremarkable. Patient's orthostatic vital signs are positive - 2L IVF ordered with plan to re- eval BP. Likely orthostatic hypotension. 1645-- Patient received 2L of IVF with correction of hypotension. ortho vitals neg. ambulating w/ steady gait to the bathroom. patient was likely dehydrated and may have influenza as daughter at home is ill with similar. educated on supportive treatment. Patient has remained stable throughout ED visit today. Discussed worrisome signs and symptoms and when to return to the ED. All questions answered at this time. Patient is agreeable with disposition and stable for discharge. Medications Administered Discontinued Medications Generic Name Dose Route Start Last Admin Trade Name Freq PRN Reason Stop Dose Admin Acetaminophen 650 mg 06/04/25 16:01 06/04/25 16:10 Acetaminophen 325 Mg Tablet PO 06/04/25 16:02 650 mg ONCE ONE Administration Sodium Chloride 1,000 mls @ 999 mls/hr 06/04/25 14:00 06/04/25 15:18 Ns IV 06/04/25 15:00 Infused .Q1H1M HARDY Infusion Sodium Chloride 1,000 mls @ 999 mls/hr 06/04/25 14:00 06/04/25 15:18 Ns IV 12/23/25 15:00 Infused .Q1H1M HARDY Infusion Lidocaine 1 patch 06/04/25 15:33 06/04/25 16:10 Lidocaine 4 % Patch Adh..Patch TRANSDERMA 06/04/25 15:34 1 patch ONCE ONE Administration Protocol Ondansetron HCl 4 mg 06/04/25 13:53 06/04/25 14:17 Ondansetron Hcl 4 Mg/2 Ml Vial IVPUSH 06/04/25 13:54 4 mg ONCE ONE Administration Medical Decision Making Medical Decision Making [facility] Narrative: 29 year old female presents to the ED today via EMS for evaluation s/p syncopal episode [employer]. patient is tachycardic, BP soft, afebrile. not hypoxic. exam benign. Differential diagnosis includes viral syndrome, anemia, electrolyte abnormality, dehydration, orthostatic hypotension, vasovagal syncope, hypoglycemia, PE (PERC 2), lumbar sprain/strain. Lower suspicion for intracranial bleed, seizure, lumbar fracture. Plan for labs, ekg, imaging, ortho vitals, dimer, re-evaluation. Differential Diagnosis Differential Diagnoses: The differential diagnosis associated with the presentation includes as above. Admission/Observation not indicated. Lab Data [facility] Lab Attestation statement: I reviewed the patient's lab results. As above 06/04/25 12:32 06/04/25 12:32 Labs: Lab Results 06/04/25 06/04/25 Range/Units 12:32 13:51 WBC 11.5 H (4.8-10.8) X10*3/uL RBC 4.32 (4.20-5.50) X10*6/uL Hgb 12.2 (12.0-16.0) g/dl Hct 37.5 (37.0-47.0) % MCV 86.8 (80.0-98.0) fL MCH 28.2 (27.0-33.0) pg MCHC 32.5 (31.0-35.0) g/dl RDW 14.0 (11.0-16.0) % Plt Count 248 (160-400) X10*3/uL MPV 9.5 (9.4-12.3) fL Immature Gran % (Auto) 0.3 (0.0-0.4) % Neut % (Auto) 92.3 H (45-73) % Lymph % (Auto) 3.3 L (20-40) % Hendry % (Auto) 3.4 (2-11) % Eos % (Auto) 0.4 (0-4) % Baso % (Auto) 0.3 (0-2) % Lymph # (Auto) 0.4 L (1.2-4.9) X10*3/uL Hendry # (Auto) 0.4 (0.1-1.2) X10*3/uL Eos # (Auto) 0.1 (0.0-0.4) X10*3/uL Baso # (Auto) 0.0 (0.0-0.2) X10*3/uL Abs Immat Gran (auto) 0.04 H (0.00-0.03) X10*3/uL Absolute Neuts (auto) 10.6 H (2.0-8.3) x10*3/uL Absolute Nucleated RBC 0.000 (0.0-0.012) X10*3/uL Nucleated RBC % (auto) 0.0 (0.0-0.2) /100WBC Smear Tech's Comments VERIFIED D-Dimer High Sensitivty < 150 NG/ML Sodium 137 (135-145) mmol/L Potassium 3.6 (3.3-5.1) mmol/L Chloride 106 (96-108) mmol/L Carbon Dioxide 23 (22-29) mmol/L Anion Gap 12 (12-20) BUN 14 (9-16) mg/dL Creatinine 0.80 (0.5-1.4) mg/dL Estim Creat Clear Calc 98.6 Estimated GFR > 60 Random Glucose 119 H (60-115) mg/dL Calcium 9.2 (8.4-10.2) mg/dL Troponin I High Sens < 2.7 (<3.5-17.0) ng/L TSH 0.95 (0.32-4.0) uIU/mL Beta HCG, Quant < 2 mIU/mL Influenza Type A (PCR) NEGATIVE (Negative) Influenza Type B (PCR) NEGATIVE (Negative) RSV RNA Qual (PCR) NEGATIVE (Negative) SARS-CoV-2 RNA (RT-PCR) NEGATIVE (Negative) Independent Interpretation I performed an independent interpretation of an: EKG and CT Scan Interpretation: EKG showing sinus tachycardia with rate of 119, no acute ischemic changes or ST elevations. CT head without bleed xr lumbar spine without fracture Radiology Impression Discussion of test interpretation with radiology: I have reviewed the radiologist's reading. Radiologist Impression: Procedure(s): CT head/brain wo IV con Accession Number(s): [id number] cc: Viviana Sandhu; Tsering Bob~ Report Number: [id number]: Total DLP = 670.00 mGy-cm Reason for Exam: syncope EXAMINATION: CT HEAD WITHOUT CONTRAST CLINICAL INFORMATION: Syncope COMPARISON: None available. TECHNIQUE: Contiguous axial imaging was performed from the skull base to vertex without intravenous administration of contrast. This CT examination was performed using dose optimization techniques as appropriate, variously including the following: *Automated exposure control *Adjustment of mA and/or kV according to patient size (this includes techniques or standardized protocols for targeted exams where dose is matched to indication/reason for exam; i.e. extremities or head) *Use of iterative reconstruction technique FINDINGS: There is no acute ischemic change. There is no intracranial hemorrhage. There is no mass-effect or midline shift. Basal cisterns and ventricles are within normal limits for age/cerebral volume. Orbits are symmetrical and unremarkable. Paranasal sinuses and mastoid air cells are pneumatized. There are no bony abnormalities. CT/CT head/brain wo IV con IMPRESSION: No acute intracranial abnormality. Electronically signed by: Wesly Rivera MD 06/04/2025 02:32 PM [facility] Procedure(s): XR lumbar spine 2-3V Accession Number(s): [id number] cc: Viviana Sandhu; Tsering Bob~ Reason for Exam: fall low back pain EXAMINATION: XR LUMBOSACRAL SPINE CLINICAL INFORMATION: fall low back pain COMPARISON: January 23, 2022 TECHNIQUE: Three views of the lumbosacral spine. FINDINGS: There is 12 degrees dextroscoliosis There are 5 lumbar segments with vestigial ribs at L1. T11 demonstrates mild degenerative change with anterior osteophytes. Disc spaces are preserved. There is no listhesis. Vertebral body height is preserved. XR/XR lumbar spine 2-3V IMPRESSION: Mild dextroscoliosis. Electronically signed by: Wesly Rivera MD 06/04/2025 02:16 PM [facility] Independent Historian Clinical information obtained from an independent historian. History obtained from or confirmed by: Parent and EMS External Record Review External record reviewed: Inpatient record Prescription Management I considered prescription management with: Pain Medication Social Determinants Patient?s care significantly limited by Social Determinants of Health including: Other Social Determinant of Health Critical Care Time Critical Care Time Critical Care Time: No Discharge Plan Discharge Clinical Impression: Orthostatic hypotension Patient Disposition: Home, Self-Care Instructions: Hypotension (ED) Additional Instructions: You were evaluated in the ED today after a syncopal episode while at [facility]. Your blood work is reassuring. You tested negative for COVID, flu, RSV however your daughter is ill with the flu. It may be too early to early to have a positive test. You probably have the flu. Your blood pressure was noted to be on the lower side when going from a seated/lying down position to a standing position. This can be secondary to dehydration. We treated you with 2 liters of IV fluid today with improvement in blood pressure. Please make sure you are staying adequately hydrated. Use caution when changing positions so that your blood pressure can adjust. Follow up with your primary care provider. Return with any new or worsening symptoms. In the case of an emergency call 911. Prescriptions: No Action cefdinir 300 mg capsule 300 mg PO Q12H 7 Days Qty: 14 0RF Flovent HFA 110 mcg/actuation HFA aerosol inhaler 2 puff PO BID ferrous sulfate [FeroSul] 325 mg (65 mg iron) tablet 325 mg PO Q OTHER DAY acetaminophen [Mapap Arthritis Pain] 650 mg tablet extended release 650 mg PO Q8H PRN (Reason: Pain) albuterol sulfate 2.5 mg /3 mL (0.083 %) solution for nebulization 2.5 mg inhalation Q6H PRN (Reason: asthma) albuterol sulfate [ProAir HFA] 90 mcg/actuation HFA aerosol inhaler 2 puff PO QID amitriptyline 25 mg tablet 25 mg PO BEDTIME levothyroxine 100 mcg tablet 100 mcg PO DAILY rizatriptan 10 mg tablet PO DAILY Slynd 4 mg (28) tablet 1 tab PO DAILY Referrals: Viviana Sandhu FNP [Primary Care Provider, Family Practice] Interventions: ED Discharge Assessment Last Done: 06/04/25 16:58 Discharge Date/Time: 06/04/25 16:59 Print Language: Citizen Of [place]
--- OUTSIDE RECORDS SUMMARY | 2025-06-04 13:52 | XMS_ITS | Encounter Summary ---
Author Organization [facility] Address [address] [place] [address] Phone Care Team Providers Care Tavern Keeper Name Role Phone Heydi Haywood MD Primary Care Provider [phone] Encounter Details Date Type Department Care Team (Late st Contact Info) Description 04/18/2012 Documentation [facility] Family Medicine [address] [place] [address] Family Medicine, Physician [address] [place], [place] [phone] Social History Tobacco Use Types Packs/Day Years [...] on filedocumented in this encounter Care Teams Tavern Keeper Relationship Specialty Start Date End Date Heydi Haywood MD [address] [place] [address] BRYNN Crum [address] PCP - General 01/21/17 07/28/22 documented as of this encounter
--- OUTSIDE RECORDS SUMMARY | 2025-06-04 13:52 | XMS_ITS | Encounter Summary ---
Author Organization [employer] Address [address] [place] [address] Care Team Providers Care Chief Concierge Name Role Phone Viviana Sandhu Primary Care Provider [phone] Reason for Visit * Reason Comments Med Refill Encounter Details Date Type Department Care Team ([facility] st Contact Info) Description 02/18/2025 Refill [facility] [address] [place] [address] Viviana Sandhu FNP [address] [place] [address] DUB (dysfunctional uterine bleeding) Social History Tobacco [...] Care Team (Late st Contact Info) Description 08/07/2025 9:45 AM EST Office Visit [facility] [address] [place] [address] Viviana Sandhu FNP [address] [place] [address] documented as of this encounter Visit Diagnoses Diagnosis DUB (dysfunctional uterine bleeding) Other disorder of menstruation and other abnormal bleeding from female genital tract documented in this encounter Additional Health Concerns Assessment Noted Time PHQ-9 Depression Total Score: 2 10/18/19 25 11:16 AM EDT documented as of this encounter Care Teams Chief Concierge Relationship Specialty Start Date End Date Viviana Sandhu FNP [address] [place] [address] PCP - General Family Medicine 05/18/22 documented as of this encounter
--- OUTSIDE RECORDS SUMMARY | 2025-06-04 13:52 | XMS_ITS | Encounter Summary ---
Author Organization [employer] Address [address] [facility] [address] [place] [address] Care Team Providers Care Junior Graphic Designer Name Role Phone Viviana Sandhu Primary Care Provider Reason for Visit * Reason Onset Date Comments Results 03/20/2024 Encounter Details Date Type Department Care Team ([facility] Contact Info) Description 03/20/2024 Telephone [facility] [address] [place], [place] [phone] Viviana Sandhu FNP [address] [place] [address] Results Social History Tobacco Use Types Packs/Day [...] status on Xray results. Contact pt at [phone] * Telephone Encounter - Moni Willis - 03/20/2024 1:54 PM EDT TC from pt requesting call back regarding Results. Type of results: US kidney Date when done: in February Facility[place] [facility] documented in this encounter Plan of Treatment Upcoming Encounters Date Type Department Care Team (Late st Contact Info) Description 08/07/2025 9:45 AM EST Office Visit [facility] MEDICINE [address] [place] [address] Viviana Sandhu FNP [address] [place] [address] documented as of this encounter Visit Diagnoses Not on filedocumented in this encounter Additional Health Concerns Assessment Noted Time PHQ-9 Depression Total Score: 1 02/29/20 24 10:08 AM EDT documented as of this encounter Care Teams Junior Graphic Designer Relationship Specialty Start Date End Date Viviana Sandhu FNP [address] [place] [address] PCP - General Family Medicine 05/18/22 documented as of this encounter
--- OUTSIDE RECORDS SUMMARY | 2025-06-04 13:52 | XMS_ITS | Encounter Summary ---
Author Organization [facility] Address [address] [place] [address] Phone Care Team Providers Care Diesel Engine Assembler Name Role Phone Heydi Haywood MD Primary Care Provider [phone] Encounter Details Date Type Department Care Team (Late st Contact Info) Description 06/03/2011 Documentation [facility] [place] Medicine [address] [place] [address] Family Medicine, Physician [address] [place], [place] [phone] Social History Tobacco Use Types Packs/Day Years [...] on filedocumented in this encounter Care Teams Diesel Engine Assembler Relationship Specialty Start Date End Date Heydi Haywood MD [address] [place] [address] BRYNN Crum [address] PCP - General 01/21/17 07/28/22 documented as of this encounter
--- OUTSIDE RECORDS SUMMARY | 2025-06-04 13:52 | XMS_ITS | Encounter Summary ---
Author Organization [employer] Address [address] [facility] [address] [place] [address] Care Team Providers Care Electric Freight Car Operator Name Role Phone Viviana aSndhu Primary Care Provider [phone] Encounter Details Date Type Department Care Team (Latest Contact Info) Description 05/01/2025 Results Follow-Up [facility] [address] [place], [place] [phone] Viviana Sandhu FNP [address] [place], [place] [phone] Comprehensive Metabolic Panel, Lipid Panel, Standard, TSH W/Reflex to FT4 Social History Tobacco Use Types Packs/Day Years [...] Description 08/07/2025 9:45 AM EST Office Visit [facility] [address] [place] [address] Viviana Sandhu FNP [address] [place] [address] documented as of this encounter Visit Diagnoses Not on filedocumented in this encounter Additional Health Concerns Assessment Noted Time PHQ-9 Depression Total Score: 2 10/18/19 25 11:16 AM EDT documented as of this encounter Care Teams Electric Freight Car Operator Relationship Specialty Start Date End Date Viviana Sandhu FNP [address] [place] [address] PCP - General Family Medicine 05/18/22 documented as of this encounter
--- OUTSIDE RECORDS SUMMARY | 2025-06-04 13:52 | XMS_ITS | Encounter Summary ---
Author Organization [employer] Address [address] [place] [address] Care Team Providers Care Youth Care Specialist Name Role Phone Viviana Sandhu Primary Care Provider [phone] Encounter Details Date Type Department Care Team ([facility] st Contact Info) Description 03/05/2024 Orders Only [facility] MED & PEDS [address] [place], [place] [phone] Viviana Sandhu FNP [address] [place], [place] [phone] Iron deficiency anemia, unspecified iron deficiency anemia [...] Description 08/07/2025 9:45 AM EST Office Visit [facility] MEDICINE [address] [place] [address] Viviana Sandhu, PAPER WINDER [address] [place] [address] Scheduled Orders Name Type Priority Associated Diagnoses [...] * Ferritin (02/26/2025 3:49 PM EDT) Pathologist [facility] [place] Ferritin 23 10 - 122 ng/mL [facility] 02/26/2025 3:49 PM EDT 02/26/2025 5:33 PM EDT Viviana Sandhu PAPER WINDER LAB BLOOD ORDERABLES Final Res ult Performing Organization Address [facility] Co de Phone Number [facility] [address] [place] [phone] * Iron And Total Iron Binding Capacity (10/17/2024 12:04 PM EDT) [facility] Iron 102 30 - 160 mcg/dL [facility] Total Iron Binding Capacity 282 228 - 428 mcg/dL [facility] Percent Iron Saturation 36 15 - 50 % [facility] Unsaturated Iron Binding 180 ug/dL [facility] Blood Venous blood specimen / Unknown 10/17/2024 12:04 PM EDT 10/17/2024 1:32 PM EDT Viviana Sandhu PAPER WINDER LAB BLOOD ORDERABLES Final Res ult Performing Organization Address [facility] [address] [facility] de Phone Number [facility] [address] [place] [phone] * (ABNORMAL) CBC auto differential (10/17/2024 12:04 PM EDT) Pathologist [facility] [place] White Blood Count 8.6 4.8 - 10.8 X10*3/uL [facility] Red Blood Count 4.45 4.20 - 5.50 X10*6/uL [facility] Hemoglobin 12.4 12.0 - 16.0 g/dl [facility] Hematocrit 38.1 37.0 - 47.0 % [facility] Mean Corpuscular Volume 85.6 80.0 - 98.0 fL [facility] Mean Corpuscular Hemoglobin 27.9 27.0 - 33.0 pg [facility] Mean Corpuscular HGB Conc 32.5 31.0 - 35.0 g/dl [facility] Red Cell Distribution Width 15.4 11.0 - 16.0 % [facility] Platelet Count 297 160 - 400 X10*3/uL [facility] Mean Platelet Volume 10.0 9.4 - 12.3 fL [facility] Neutrophils Percent Auto 74.1(H) 45 - 73 % [facility] Imm Gran Pct Auto 0.4 0.0 - 0.4 % [facility] Lymphocytes Percent Auto 18.1(L) 20 - 40 % [facility] Monocytes Percent Auto 6.0 2 - 11 % [facility] Eosinophils Percent Auto 0.9 0 - 4 % [facility] Basophils Percent Auto 0.5 0 - 2 % [facility] NRBC Pct Auto 0.0 0.0 - 0.2 /100WBC [facility] Neutrophils Absolute Auto 6.4 2.0 - 8.3 x10*3/uL [facility] Imm Gran Abs Auto 0.03 0.00 - 0.03 X10*3/uL [facility] Lymphocytes Absolute Auto 1.6 1.2 - 4.9 X10*3/uL [facility] Monocytes Absolute Auto 0.5 0.1 - 1.2 X10*3/uL [facility] Eosinophils Absolute Auto 0.1 0.0 - 0.4 X10*3/uL [facility] Basophils Absolute Auto 0.0 0.0 - 0.2 X10*3/uL [facility] NRBC Abs Auto 0.000 0.0 - 0.012 X10*3/uL [facility] Blood Venous blood specimen / Unknown 10/17/2024 12:04 PM EDT 10/17/2024 1:32 PM EDT us Viviana Sandhu PAPER WINDER LAB BLOOD ORDERABLES Final Res ult [facility] [address] [place], [place] [phone] * US RENAL BI (03/13/2024 8:54 AM EDT) Anatomical Region Laterality Modality Abdomen Ultrasound 03/13/2024 8:54 AM EDT Narrative 03/30/2024 1:39 PM EDT [address] [address] Ultrasound Report Signed Patient: Viviana Qiuntana MR#: [id number] 1 : 1995 Acct:[id number] Age/Sex: 28 / F ADM Date: 03/13/24 Loc: HO.US Attending Dr: Viviana WILLIS Ordering Physician: Viviana Sandhu Date of Service: 03/13/24 Procedure(s): US renal BI Accession Number(s): [id number] cc: Ashley Wren ; Viviana Sandhu EXAMINATION: [...] 03/30/24 1336 DD/ 0854 TD/TT: 03/13/24 0914 Subway Operator: SS Procedure Note Donotuseinterpreter, Image - 03/30/2024 [place] [id number] Ultrasound Report Signed Patient: Courtney Quintana#: [id number] 1 : 1995Acct:[id number] Age/Sex: 28 FADM Date: 03/13/24 Loc: HO.US Attending Dr: Viviana WILLIS Ordering Physician: Viviana Sandhu Date of Service: 03/13/24 Procedure(s): US renal BI Accession Number(s): [id number] cc: Ashley Wren ; Viviana Sandhu EXAMINATION: [...] 03/30/24 1336 DD/ 0854 TD/TT: 03/13/24 0914 Subway Operator: SS us Viviana WILLIS IMG US PROCEDURES Final Result documented in this encounter Visit Diagnoses Diagnosis Iron deficiency anemia, unspecified iron deficiency anemia type- Primary documented in this encounter Additional Health Concerns Assessment Noted Time PHQ-9 Depression Total Score: 1 02/29/20 24 10:08 AM EDT documented as of this encounter Care Teams Youth Care Specialist Relationship Specialty Start Date End Date Viviana Sandhu FNP [address] [place] [phone] PCP - General Family Medicine 05/18/22 documented as of this encounter
--- OUTSIDE RECORDS SUMMARY | 2025-06-04 13:52 | XMS_ITS | Clinical Summary ---
Author Organization [employer] Address [address] [facility] 7t [place] [address] Care Team Providers Care Farm Tractor Operator Name Role Phone Phoebe Viviana FNP Primary Care Provider [phone] Allergies No known active allergies Medications multivitamin () 27-0.8 MG tabletIndications: Routine health maintenance TAKE 1 TABLET BY MOUTH EVERY DAY WITH FOOD 90 tablet 2 02/27/20 24 Active magnesium oxide (Mag-Ox) 400 (240 Mg) MG tabletIndications: Migraine without status migrainosus, not intractable, unspecified migraine type Take 1 tablet (400 mg) by mouth at bedtime. 90 tablet 3 03/01/20 24 Active amitriptyline [...] needed. 50 g 3 10/18/19 25 Active acetaminophen (Tylenol 8 Hour) 650 MG ER tablet TAKE 1 TABLET(650 MG) BY MOUTH EVERY 8 HOURS NEEDED FOR PAIN OR FEVER 100 tablet 3 10/19/19 25 Active ibuprofen 200 MG tabletIndications: Tendinitis of both ankles,Migraine without status migrainosus, not intractable, unspecified migraine type Take 2-3 tablets (400-600 mg) by mouth every 8 (eight) hours if needed (pain or fever). 100 tablet 2 01/24/20 25 026 Active Rimegepant Sulfate 75 MG tablet dispersibleIndicat ions:Migraine without status migrainosus, not intractable, unspecified migraine type Take 1 tablet (75 mg) by mouth if needed each day (migraine). 30 tablet 2 01/24/20 25 Active Drospirenone (Slynd) 4 MG tablet Take 1 tablet by mouth Once per day. 28 tablet 11 02/27/20 25 Active levothyroxine (Synthroid, Levoxyl) 100 MCG tabletIndications: Other specified hypothyroidism TAKE 1 TABLET(100 MCG) BY MOUTH BEFORE BREAKFAST 90 tablet 3 03/12/20 25 Active Cleocin-T 1 % lotionIndications: Skin lesion of breast APPLY TOPICALLY UNDER BREAST IN THE MORNING AND AT BEDTIME NEEDED FOR LESIONS 60 mL 2 03/12/20 25 Active Ventolin HFA 108 (90 Base) MCG/ACT inhalerIndications :Mild persistent asthma without complication INHALE 2 PUFFS EVERY 4-6 HOURS NEEDED FOR WHEEZING OR SHORTNESS OF BREATH 18 g 11 03/14/20 25 Active lidocaine (Lidoderm) 5 % patchIndications:C hronic midline low back pain without sciatica APPLY 1 PATCH TOPICALLY IF NEEDED EACH DAY FOR MILD PAIN; REMOVE AND DISCARD PATCH WITHIN 12 HOURS OR DIRECTED BY MD 30 patch 2 03/14/20 25 Active albuterol (2.5 MG/3ML) 0.083% nebulizer solutionIndication s:Mild persistent asthma without complication USE 3 ML VIA NEBULIZER EVERY 6 HOURS NEEDED FOR ASTHMA 75 mL 1 03/14/20 25 Active DULoxetine (Cymbalta) [address] capsuleIndications :Chronic midline low back pain without sciatica TAKE 1 CAPSULE BY MOUTH EVERY DAY FOR CHRONIC BACK PAIN 90 capsule 1 03/14/20 25 Active Mometasone Furoate (Asmanex HFA) 100 MCG/ACT aerosolIndications :Mild persistent asthma without complication INHALE 2 PUFFS BY MOUTH TWICE DAILY FOR ASTHMA PREVENTION 13 g 3 05/17/2025 9:03 AM EST 05/01/20 25 Active ibuprofen 800 MG tabletIndications: DUB (dysfunctional uterine bleeding) Take 1 tablet (800 mg) by mouth every 8 (eight) hours if needed (pain). 90 tablet 1 05/01/20 25 025 Active Problems Problem Noted Date Diagnosed Date Tendinitis of both ankles 01/23/2025 Assessment & Plan (01/23/2025 4:16 PM EDT): Diagnosed 11/2024 at [facility] Ortho. Recommended conservative management. Declines interest in physical therapy at this time. Discussed consideration of k-tape or other options available at home Healthcare maintenance 02/29/2024 Overview (02/29/2024): Last PE: 02/29/24 Pap: 01/26/24 NILM (next due Jan 2027) OPH: [facility] - last visit 08/31/23, glasses rx Migraine 06/14/2022 Assessment & Plan (05/11/2025 6:15 PM EST): -Frequency: ~2/month -Continue with amitriptyline 25mg and magnesium 400mg at bedtime -Continue Nurtec PRN Previous medications: - zolmitriptan - rizatriptan Assessment & Plan (01/23/2025 4:20 PM EDT): -Frequency: ~3/month -Continue with amitriptyline 25mg and magnesium 400mg at bedtime -Start Nurtec Previous medications: - zolmitriptan - rizatriptan Assessment [...] ordered 03/01/24 Asthma 04/26/2021 Assessment & Plan (05/11/2025 6:16 PM EST): -Maintenance: Asmanex HFA 100 mcg/act, 2 puffs BID -Rescue: albuterol PRN Assessment & Plan (03/01/2024 1:38 PM EDT): [...] (dysfunctional uterine bleeding) 11/03/2017 Assessment & Plan (05/11/2025 6:16 PM EST): Maintains regular withdrawal bleeding with Slynd OCP Continues with ibuprofen 800mg TID x 7 days when bleeding is heavier than normal. Reviewed med safety and SE. Assessment & Plan (01/23/2025 4:14 PM EDT): [...] Encounters Date Type Department Care Team Description 05/01/2025 9:45 AM EST Office Visit [address] [address] Viviana Sandhu FNP Migraine without status migrainosus, not intractable, unspecified migraine type (Primary Dx); Encounter for immunization; Healthcare maintenance; Mild persistent asthma without complication; DUB (dysfunctional uterine bleeding) 05/01/2025 Results Follow-Up [facility] P[facility] [address] [place] [address] Viviana Sandhu FNP Comprehensive Metabolic Panel, Lipid Panel, Standard, TSH W/Reflex to FT4 05/01/2025 Travel 04/24/2025 Travel 03/12/2025 Telephone [facility] MEDICINE [address] [place] [address] Viviana Sandhu FNP Med Refill 03/12/2025 Refill [facility] MEDICINE [address] [place] [address] Phalen, Viviana, ORTHOTIC/PROSTHETIC PRACTITIONER Mild persistent asthma without complication; Chronic midline low back pain without sciatica 03/11/2025 Refill [facility] MEDICINE [address] [place] [phone] Deepatsy Viviana, ORTHOTIC/PROSTHETIC PRACTITIONER Other specified hypothyroidism; Skin lesion of breast from Last 3 Months Immunizations Immunization Administration [...] 04/26/2013,07/13/2012,03/30/2012 Influenza, seasonal, injecta ble, preservative free 05/01/2025,02/29/2024 MMR 08/11/2002,11/28/1997 Meningococcal MCV4P ACYW-135 08/31/2007 Meningococcal MPSV4 08/31/2007 Novel [id number], all formulations 04/16/2009 OPV, Trivalent 02/12/1997,1996,1996 Pfizer [...] Sign Reading Time Taken Comments Blood Pressure 98/74 05/01/2025 9:23 AM EST Pulse 88 05/01/2025 9:23 AM EST Temperature 37.2 C (98.9 F) 05/01/2025 9:23 AM EST Respiratory Rate 16 05/01/2025 9:23 AM EST Oxygen Saturation 99% 02/26/2025 3:11 PM EDT Inhaled Oxygen Concentration - - Weight 77.6 kg (171 lb) 05/01/2025 9:23 AM EST Height 156.8 cm (5' 1.75 ) 05/01/2025 9:23 AM ES T Body Mass Index 31.53 05/01/2025 9:23 AM EST Plan of Treatment Upcoming Encounters Date Type Department Care Team (Late st Contact Info) Description 08/07/2025 9:45 AM EST Office Visit [facility] MEDICINE [address] [place] [address] Viviana Sandhu, ORTHOTIC/PROSTHETIC PRACTITIONER [address] [place] [address] Health Maintenance Due Date Last Done Comments Depression Screening 10/17/2025 10/17/2024, 10/18/19 SDOH Screening 10/17/2025 10/17/2024 Alcohol/Substance Use Screening 01/23/2026 01/23/2025 Family Planning (PISQ) 02/26/2026 02/26/2025 Disability Screening 04/24/2026 04/24/2025 COVID-19 Vaccine ( season) 2026 03/11/2023, 04/05/2022, 05/22/2021, Additional history exists Postponed from 02/11/2025 (Patient Refused) Tobacco Screening 05/01/2026 05/01/2025 DTaP/Tdap/Td Vaccines (8 - Td or Tdap) [...] Patients (6 to 49) Years Completed 02/29/2024 Hepatitis C Screening Completed 03/01/2024, 024 HIV Screening Completed 02/26/2025, 02/11, 02/08/2024 Influenza Vaccine Completed 05/01/2025, , 03/07/2023, Additional history exists Hepatitis A Vaccines Aged Out No long [...] Procedure Name Priority Date/Time Associated Diagnosis Comments TSH W/REFLEX TO FT4 Routine 05/01/2025 1 0:02 AM EST Healthcare maintenance LIPID PANEL, STANDARD Routine 05/01/2025 10:02 AM EST Healthcare maintenance COMPREHENSIVE METABOLIC PANEL Routine 05/01/2025 10:02 AM EST Healthcare maintenance HIV 1/2 ANTIGEN/ANTIBODY, FOURTH GENERATION W/RFL Routine 02/26/2025 3:49 PM EDT Screening examination for venereal disease HEPATITIS C VIRAL RNA, QUANTITATIVE, REAL-TIME PCR Routine 03/01/2024 9:03 AM EDT Healthcare maintenance THINPREP IMAGING SYSTEM PAP Routine 01/26/2024 11:06 AM EDT Unsatisfactory cervical cytology smear from Last 3 Months or Most Recently Relevant to Health Maintenance Results * TSH W/Reflex to FT4 (05/01/2025 10:02 AM EST) TSH reflex Free T4 2.63 0.32 - 4.0 uIU/mL [facility] Blood Venous blood specimen / Unknown 05/01/2025 10:02 AM EST 05/01/2025 11:09 AM EST Viviana Sandhu [facility] BLOOD ORDERABLES Final Res ult Performing Organization Address [facility] Co de Phone Number [facility] [address] [place] [phone] * (ABNORMAL) Lipid Panel, Standard (05/01/2025 10:02 AM EST) Triglycerides 56 <150 mg/dL [facility] Comment:Desirable Triglyceri de: less than 150 mg/dLBorderline High Triglyceride 150-199 mg/dLHigh Triglyceride: 200-499 mg/dLVery High Triglyceride: greater than or equal to 5OO mg/dL Cholesterol 132 <200 mg/dL [facility] Comment:Desirable Cholestero l: less than 200 mg/dLBorderline High Cholesterol: 200-239 mg/dLHigh Cholesterol: greater than 239 mg/dL LDL Cholesterol Calculated 83 <100 mg/dL [facility] Comment:Desirable LDL: less than 100 mg/dLNear Optimal/Above Optimal LDL: 110- 129 mg/dLBorderline High LDL: 130-159 mg/dLHigh LDL: 160-189 mg/dLVery High LDL: greater than or equal to 190 mg/dL HDL Cholesterol 38(L) >40 mg/dL [facility] Comment:Desirable HDL: great er than 40 mg/dL Note: This HDL assay may give artificially low results in patients with liver disease. Blood Venous blood specimen / Unknown 05/01/2025 10:02 AM EST 05/01/2025 11:09 AM EST Viviana Sandhu [facility] LAB BLOOD ORDERABLES Final Res ult Performing Organization Address [facility] Co de Phone Number [facility] [address] [place] [phone] * (ABNORMAL) Comprehensive Metabolic Panel (05/01/2025 10:02 AM EST) Sodium 135 135 - 145 mmol/L [facility] Potassium 4.4 3.3 - 5.1 mmol/L [facility] Chloride 106 96 - 108 mmol/L [facility] Carbon Dioxide 24 22 - 29 mmol/L [facility] Anion Gap 9(L) 12 - 20 [facility] Urea Nitrogen (BUN) 13 9 - 16 mg/dL [facility] Creatinine, Serum 0.84 0.5 - 1.4 mg/dL [facility] Estimated Glomerular Filt Rate >60 [facility] Comment:Chronic Kidney Disea se: Estimated GFR < 60 mL/min/1.14w5Chlsoo Kidney Disease: Estimated GFR < 15 mL/min/1.73m2 Glucose 94 60 - 115 mg/dL [facility] Calcium 9.1 8.4 - 10.2 mg/dL [facility] Bilirubin, Total 0.4 0.0 - 1.0 mg/dL [facility] Aspartate Amino Transferase 19 5 - 31 U/L [facility] Alanine Aminotransferase 21 0 - 31 U/L [facility] Total Protein 7.0 6.5 - 8.0 g/dL [facility] Albumin Level 4.3 3.5 - 5.0 g/dL [facility] Alkaline Phosphatase 48 39 - 117 U/L [facility] Blood Venous blood specimen / Unknown 05/01/2025 10:02 AM EST 05/01/2025 11:09 AM EST us Viviana Sandhu ORTHOTIC/PROSTHETIC PRACTITIONER LAB BLOOD ORDERABLES Final Res ult [facility] [address] [place] [phone] * HIV-1/2 Antigen and Antibodies, Fourth Generation, with Reflexes (02/26/2025 3:49 PM EDT) HIV AB/AG Nonreactive Nonreactive [facility] Comment:HIV-1 p24 Ag and/or HIV-1/HIV-2 Ab not detected.A test result that is nonreactive does not exclude thepossibility of exposure to or infection with HIV-1 and/orHIV-2. Nonreactive results in this assay for individualswith prior exposure to HIV-1 and/or HIV-2 may be due toantigen and antibody levels that are below the limit ofdetection of this assay.[employer] HIV Ag/Ab Combo assay result andsupplemental assay results should be interpreted inconjunction with the patient's clinical presentation,history and other laboratory results. If the results areinconsistent with clinical evidence, additional testing issuggested to confirm the result. Blood Venous blood specimen / Unknown 02/26/2025 3:49 PM EDT 02/26/2025 5:33 PM EDT L[facility] LAGUERRE LAB BLOOD ORDERABLES Michelle l Result Performing Organization Address [facility] Co de Phone Number [facility] [address] [place] [phone] * Hepatitis C Viral RNA, Quantitative, Real-Time PCR (03/01/2024 9:03 AM EDT) Hepatitis C Viral Load <15 NOT DETECTED NOT DETECTED IU/mL [facility] HCV Log PCR <1.18 NOT DETECTED NOT DETECTED Log IU/mL [facility] Comment:For additional infor duran, please refer tohttp://education.[employer] Games/faq/EPE34d6(This link is being provided for informational/educational purposes only.)THIS TEST WAS PERFORMED AT:[employer] [place] [id number] DHILLON MD Blood 03/01/2024 9:03 AM EDT 03/01/2024 11:23 AM EDT us Viviana Sandhu ORTHOTIC/PROSTHETIC PRACTITIONER LAB BLOOD ORDERABLES Final Res ult Performing Organization Address [facility] Co de Phone Number [facility] [address] [place] [phone] [phone] * Pap Smear (01/26/2024 11:06 AM EDT) SOURCE: SEE NOTE [facility] Comment:None given Report Status: [facility] Clinical Information: SEE NOTE [facility] Comment:None given LMP: SEE NOTE [facility] Comment:NONE GIVEN Prev. PAP: SEE NOTE [facility] Comment:NONE GIVEN Prev. BX: SEE NOTE [facility] Comment:NONE GIVEN Statement Of Adequacy: SEE NOTE [facility] Comment:Satisfactory for clarence luation.Endocervical/transformation zone componentpresent. General Categorization: [facility] Interpretation/Result: SEE NOTE [facility] Comment:Cytology Results: Ne gative for intraepitheliallesion or malignancy. Cytology Comment SEE NOTE [facility] Comment:This Pap test has be en evaluated with computerassisted technology. Sharepoint Specialist: SEE NOTE [facility] Comment:GSG, CT(ASCP)CT scre ening location: [address] [address] Review Sharepoint Specialist: [facility] Pathologist [facility] PAP Infection [facility] See Note SEE NOTE [facility] Comment:EXPLANATORY NOTE:The Pap is a screening test for cervical cancer. It isnot a diagnostic test and is subject to false negativeand false positive results. It is most reliable when asatisfactory sample, regularly obtained, is submittedwith relevant clinical findings and history, and whenthe Pap result is evaluated along with historic andcurrent clinical information.THIS TEST WAS PERFORMED AT:[employer] [address] [id number] DHILLON MD Pap Vial Vaginal structure / Unknown 01/26/2024 11:06 AM EDT 01/26/2024 5:44 PM EDT Narrative [facility] - 01/31/2024 11:58 AM EDT SEE RESULTS IN EMR us Luma Shipleyjosh CNM LAB PATHOLOGY ORDERABLES Final Result [facility] [address] [place] [address] [phone] from Last 3 Months or Most Recently Relevant to Health Maintenance Insurance [facility] C3 Care Teams Farm Tractor Operator Relationship Specialty Start Date End Date Viviana Sandhu FNP [address] [place], [place] PCP - General Family Medicine 05/18/22
--- OUTSIDE RECORDS SUMMARY | 2025-06-04 13:52 | XMS_ITS | Encounter Summary ---
Author Organization [employer] Address [address] [facility] [address] [place] [address] Care Team Providers Care Filter Machine Operator Name Role Phone Viviana Sandhu Primary Care Provider [phone] Reason for Visit * Reason Comments Med Refill Encounter Details Date Type Department Care Team ([facility] Contact Info) Description 04/22/2024 Refill [facility] MED & PEDS [address] [place], [place] [phone] Viviana Sandhu FNP [address] [place] [address] Mild persistent asthma without complication Social History [...] Description 08/07/2025 9:45 AM EST Office Visit [facility] MEDICINE [address] [place] [address] Viviana Sandhu FNP [address] [place] [address] documented as of this encounter Visit Diagnoses Diagnosis Mild persistent asthma without complication documented in this encounter Additional Health Concerns Assessment Noted Time PHQ-9 Depression Total Score: 1 02/29/20 24 10:08 AM EDT documented as of this encounter Care Teams Filter Machine Operator Relationship Specialty Start Date End Date Viviana Sandhu FNP [address] [place] [address] PCP - General Family Medicine 05/18/22 documented as of this encounter
--- OUTSIDE RECORDS SUMMARY | 2025-06-04 13:53 | XMS_ITS | Encounter Summary ---
Author Organization [facility] Address [address] [place] [address] Phone Care Team Providers Care Telephony Engineer Name Role Phone Heydi Haywood MD Primary Care Provider [phone] Encounter Details Date Type Department Care Team (Late st Contact Info) Description 01/27/2017 Conversion Encounter [facility] [address] [place] [address] Social History Tobacco Use Types Packs/Day Years [...] on filedocumented in this encounter Care Teams Telephony Engineer Relationship Specialty Start Date End Date Heydi Haywood MD [address] [place] [address] PCP - General 01/21/17 07/28/22 documented as of this encounter
--- OUTSIDE RECORDS SUMMARY | 2025-06-04 13:53 | XMS_ITS | Clinical Summary ---
Author Organization [facility] Address [address] [place] [phone] Phone Care Team Providers Care Duty Engineer Name Role Phone Unavailable Primary Care Provider [...] complete this topic Procedures * Due to [place] [employer] law, this organization might not be sharing sensitive test results. Procedure Name Priority Date/Time Associated Diagnosis Comments CHLAMYDIA AND GONORRHEA, AMPLIFIED Routine 10/28/2010 2:05 PM EDT from Last 3 Months or Most Recently Relevant to Health Maintenance Results * Due to [place] [employer] law, this organization might not be sharing sensitive test results. * Chlamydia and Gonorrhoea, Amplified (10/28/2010 2:05 PM EDT) Pathologist [facility] URINE CHLAMYDIA AMP PROBE NEGATIVE [facility] Comment: NO CHLAMYDIA TRACHOMATIS RNA DETECTED IN THIS PATIENT'S SAMPLE. (REFERENCE RANGE/NORMAL VALUE: NOT DETECTED) URINE GC AMP PROBE NEGATIVE [facility] Comment: NO NEISSERIA GONORRHOEAE RNA DETECTED IN THIS PATIENT'S SAMPLE. (REFERENCE RANGE/NORMAL VALUE: NOT DETECTED) NOTE: THIS TEST USES ACADEMIC PHYSICIAN MEDIATED AMPLIFICATION METHOD TO DETECT rRNA FROM [...] AGENTS. 10/28/2010 2:05 PM EDT Narrative [facility] - 10/28/2010 2:05 PM EDT URINE CHLAMYDIA GC AMP PROBE us Ashwini Marcus MD LAB MICROBIOLOGY - GENERAL ORDER JEROMY Final Result [facility] [address] [place] [address], from Last 3 Months or Most Recently Relevant to Health Maintenance
[2025-06-04 14:06] LABS: D Dimer High Sensitivity < 150 NG/ML
--- NOTE | 2025-06-04 14:21 | PC.NURSE ---
patient a&ox3, iv inserted, labs drawn, swab obtained, orthostats performed, monitoring engineer applied, ivf started, pt medicated for nausea, call vargas within reach, plan of care ongoing
[2025-06-04] MEDS: Lidocaine 4 % Patch ADH..PATCH 1 PATCH TRANSDERMA (16:10)
== END 2025-06-04 16:59 | disposition home or self-care (01) ==
PROVIDERS: Physician Assistant Medical; Emergency Provider Emergency Medicine; PCP Registered Nurse
DX: I95.9 Hypotension, unspecified (principal); R55 Syncope and collapse; W18.39XA Other fall on same level, initial encounter; Y93.89 Activity, other specified; Y92.512 Supermarket, store or market as the place of occurrence of the external cause; Y99.8 Other external cause status; Z87.440 Personal history of urinary (tract) infections; Z79.899 Other long term (current) drug therapy; Z03.818 Encounter for observation for suspected exposure to other biological agents ruled out
CPT/HCPCS: 36415; 70450; 72100; 80048; 84443; 84484; 84702; 85025; 85379; 87637; 93005; 96361; 96374; 99284; 99285; J2405

== ENCOUNTER → 2025-06-04 12:19 | Outpatient (BNV) | payer MEDICAID, SELFPAY | PROVIDERS: Emergency Provider Emergency Medicine; PCP Registered Nurse; Visit Provider Internal Medicine Cardiovascular Disease | DX: R00.0 Tachycardia, unspecified (principal) | CPT/HCPCS: 93010 ==

== ENCOUNTER → 2025-06-04 13:27 | Outpatient (BNV) | payer MEDICAID, SELFPAY | PROVIDERS: Emergency Provider Emergency Medicine; PCP Registered Nurse; Visit Provider Radiology Diagnostic Radiology | DX: R55 Syncope and collapse (principal); M41.86 Other forms of scoliosis, lumbar region | CPT/HCPCS: 70450; 72100 ==